=== PATIENT | male | born 1955 | race Caucasian/White ===

== ENCOUNTER 2024-09-06 16:31 | Inpatient (IN) | payer OTHER, SELFPAY ==
[2024-09-06 11:55] VITALS: BP 158/82
[2024-09-06 12:11] LABS: Urine Albumin 4+ (Neg - Trace); Urine Bilirubin 1+ (Negative); Urine Character Slightly Cloudy (Clear); Urine Glucose 4+ (Negative); Urine Ketone Negative (Negative); Urine Leukocyte 3+ (Negative); Urine Nitrite Positive (Negative); Urine Occult Blood 3+ (Negative); Urine Urobilinogen 1+ (Neg - 1+)
[2024-09-06 12:12] LABS: Urine Color Orange
[2024-09-06 12:38] LABS: Urine White Cell >100 /HPF (0-5)
[2024-09-06 12:44] VITALS: BMI 40.5
[2024-09-06 12:45] VITALS: BP 139/76
[2024-09-06 13:01] VITALS: BP 133/63
--- NOTE | 2024-09-06 13:20 | ED.GENMED ---
History of Present Illness
General
Chief Complaint: Male Genito-Urinary Symptoms
Source: patient
Time Seen by Provider: 09/06/24 12:45
History of Present Illness
History of Present Illness:
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
urgency and frequency despite being started on antibiotics on August 20 by urologist, Dr. Arreguin. Patient was given a 10-day course of levofloxacin which she reports he finished without any relief and then 3 days ago was started on Bactrim DS but
states has not had any relief with this. Patient notes that he otherwise feels okay other than noting some mucousy stools but states no watery stool/diarrhea. Patient denies any fevers, back or flank pain, nausea, vomiting. He reports that he did
a postvoid residual bladder scan at the urology office this past Saturday which showed only 50 mL retained. No other concerns presently.
Past History
Past History
ED Past Medical History: HTN, Hypercholesterolemia, NIDDM and Other (Hemochromatosis, kidney stones, bladder stones gout, stage II kidney disease)
ED Past Surgical History: Urological and Other (Right chest wall port)
Social History
Tobacco: Non-smoker
Alcohol: None
Drug: None
Personal:
Living: with family
Employment: Employed
Family History
Family History: Other
Review of Systems
Review of Systems
All Other Systems: ROS reviewed and negative except as documented in HPI and ROS
Phy Exam
Physical Exam
Physical Exam:
GENERAL: Alert , in no apparent distress
EYE: clear conjunctiva b/l
HEAD: NCAT
ENT: mmm.
CARDIAC: Regular rate and rhythm .
LUNGS: Clear breath sounds bilaterally, no acute respiratory distress, no wheezes/rales/rhonchi
ABDOMEN: Soft, without focal tenderness, no r/g, no cvat
NEUROLOGICAL: Alert and oriented
SKIN: Warm and dry, skin intact.
MUSCULOSKELETAL: No edema, well perfused.
PSYCH: Normal and appropriate interaction.
Scores
Heart Failure Risk
Heart Failure Risk Score: Not Applicable
Heart Score for Chest Pain Patients
STEMI patient?: Not applicable
Withdrawal Assessment of Alcohol
Withdrawal Assessment Completed?: Not applicable
Course
Orders/Labs/Results
Orders:
Orders
09/06/24 11:54
Urinalysis Reflex To Culture Urgent
Date Specimen was Collected: 09/06/24
Time Specimen was Collected: 11:54
Urine Microscopic Reflex Cult Urgent
Urine Culture Urgent
ARELY Source: U
Specimen Description:
Date Specimen was Collected: 09/06/24
Time Specimen was Collected: 11:54
09/06/24 13:03
Iohexol [Omnipaque] See Protocol PO NOW STA
09/06/24 13:04
CT Abd/pel W Iv And Oral Contr Urgent
Comment:
Reason For Exam: recurring UTI, hx vesicointestinal fistula
09/06/24 13:35
Piperacillin/Tazo 3.375 Gram [Zosyn] 3.375 gram in 50 ml IV NOW
09/06/24 13:41
Basic Metabolic Panel Urgent
Complete Blood Count/With Diff Urgent
09/06/24 Dinner
Cholesterol Lowering
At Your Request: Full Participation
Does patient need a safe tray?: No
Cholesterol Lowering: Sodium, 2 Gram
1800 junior/15 CHO Diabetic
09/06/24 15:52
Admit/Transfer Patient As Directed
Co-Sign Provider:
Level of Care: Inpatient admission
Assign to:: Medical/Surgical
Physician / Group: Lupe Wayne
Diagnosis: UTI, ANNIE
Reason for Hospitalization: UTI, ANNIE
Expected length of stay greater than two midnights?: Yes
ELOS- Estimated Length of Stay in days: 3
I certify the patient meets the requirements for IP care: Yes
PRN Pain Medication Management As Directed
May give lesser potent ordered pain med per pt: Yes
preference::
Protocol:: Medication orders for pain may be administered in a
manner that supports deferring to patient preference
when the pt is:
- Requesting an ordered lesser potent pain medication.
Least to most potent pain medications are defined
as: acetaminophen < NSAID < tramadol < opioids
(morphine, oxycodone, hydromorphone).
- Requesting a lesser dose of the same medication IF
ORDERED.
- Requesting a less intrusive route of administration
if both routes are prescribed by the provider (PO <
IV).
09/06/24 15:53
Code Status As Directed
Resuscitation Status: Full Code
09/06/24 17:35
0.9% Sodium Chloride 1000 ml [Nss] 1,000 ml IV 100 mls/hr
Acetaminophen [Tylenol] 650 mg PO Q4HPRN PRN
Dextrose 50%-Water [Dextrose 50% Syringe] 12.5 grams IV [id number] PRN
Glucagon [GlucaGen] 1 mg IM PRN PRN
09/06/24 17:35
Activity As Directed
Activity Level: Ambulate
Bedside Glucose Monitoring As Directed
Frequency: AC&HS
Additional Instructions:: Change to q6h if pt on TPN, tube feeding or not eating
Vital Signs As Directed
Frequency: Per unit guidelines
Weight As Directed
Frequency: Once
DX Deep Vein Thrombosis Video Routine
09/06/24 19:00
Insulin Aspart Corrective Low [Novolog Flexpen-Low Resistance] See Protocol SC AC
09/06/24 20:00
Piperacillin/Tazo 3.375 Gram [Zosyn] 3.375 gram in 50 ml IV Q6H
09/07/24 00:00
Heparin 5,000 units SC Q8
09/07/24 05:25
Basic Metabolic Panel IN AM
Complete Blood Count/No Diff IN AM
Glycohemoglobin (HgbA1c) IN AM
09/07/24 08:00
Allopurinol [Zyloprim] 300 mg PO DAILY
Amlodipine [Norvasc] 10 mg PO DAILY
Finasteride [Proscar] 5 mg PO DAILY
Nebivolol HCl [Bystolic] 10 mg PO DAILY
Rosuvastatin Calcium [Crestor] 20 mg PO DAILY
vibegron [Gemtesa] See Dose Instructions PO DAILY
Abnormal Lab Results
09/06/24 09/06/24
11:54 13:41
RBC 4.18 L 10^6/uL
(4.70-6.10)
MCH 31.1 H pg
(27.0-31.0)
Plt Count 117 L 10^3/uL
(130-400)
MPV 13.5 H fL
(7.4-10.4)
Abs Immat Gran (auto) 0.1 H 10^3/uL
(0-0.05)
Absolute Neuts (auto) 7.2 H 10^3/uL
(1.4-6.5)
Immature Gran % 0.7 H %
(0-0.5)
Neutrophils % 77.9 H %
(42.2-75.2)
Lymphocytes % 13.3 L %
(20.5-51.1)
Sodium 132 L mmol/L
(135-145)
Carbon Dioxide 19 L mmol/L
(22-30)
BUN 39 H mg/dl
(9-20)
Creatinine 1.6 H mg/dL
(0.7-1.3)
Glucose 389 H mg/dl
(70-99)
Ur Occult Blood Reflex 3+ A
(Negative)
Urine Nitrite (Reflex) Positive A
(Negative)
Urine Bilirubin 1+ A
(Negative)
Leukocyte Esterase Rfl 3+ A
(Negative)
Urine WBC (Reflex) >100 A /HPF
(0-5)
Urine Glucose 4+ A
(Negative)
Urine Albumin (Reflex) 4+ A
(Neg - Trace)
09/06/24 13:41
09/06/24 13:41
Vital Signs
Initial and Last Documented VS:
Initial Vital Signs
Temp Pulse Resp BP Pulse Ox
97.7 F 77 16 158/82 98
09/06/24 11:55 09/06/24 11:55 09/06/24 11:55 09/06/24 11:55 09/06/24 11:55
Last Documented Vital Signs
Temp Pulse Resp BP Pulse Ox
97.7 F 77 20 148/80 96
09/08/24 23:06 09/08/24 23:06 09/08/24 23:06 09/08/24 23:06 09/08/24 23:06
MDM/Problems Addressed
Differential Diagnosis Includes:
Multidrug-resistant urinary tract infection, recurring vesicular intestinal fistula, patient without any findings to suggest sepsis/bacteremia, BPH, prostatitis
MDM/Problems Addressed:
69-year-old male presenting to the emergency department for evaluation of continued urinary symptoms despite 2 separate antibiotics. Patient with history of fistula requiring surgical repair and has been otherwise well since that time. Patient
arrives afebrile and in no acute distress. Urinalysis obtained on arrival which shows nitrite positive urine with greater than 100 WBCs and 3+ leukocytes. Patient had previous urine culture in 2019 which showed ESBL E. coli and Klebsiella
pneumonia which showed significant multidrug resistance. Will discuss case with infectious disease to help with antibiotic planning. CT of the abdomen and pelvis ordered due to concern for potential recurring fistula. Anticipate admission given
failed outpatient treatment.
Chronic conditions affecting care: Other (previous UTI)
*Radiology
Radiology exam reviewed: radiology read reviewed
*Pulse Oximetry
Patient hypoxic: no
*Critical Care Note
Total Time (30-74mins, 75-104mins- exclusive of procedures): Not Applicable
Data Reviewed
Review of Other/Old Records Reveals: Labs and Records
Patient Management
Discussion with other providers: Hospitalist and Bill Recapitulation Clerk
Escalation/DeEscalation of care consider admission/obs:
CT findings noted. Will likely need urology input as well. Hospitalist team accepts for continued evaluation and treatment. General surgery was also notified and can consult as needed
ED Attending Note
-
Portions of this chart may have been created with voice recognition software.� Occasional wrong word or��sound alike� substitutions may have occurred due to the inherent limitations of voice recognition software.
Discharge Plan
Departure
Patient Disposition: Admit
Date of Disposition: 09/06/24
Time of Disposition: 14:54
Presentation/result/management discussed w/ accepting MD/DO: Hospitalist
Discharge Problem:
Complicated urinary tract infection, ANNIE (acute kidney injury)
Interventions
Interventions:
*General Assessment Last Done: 09/06/24 17:44
*Neglect/Abuse Screening Last Done: 09/06/24 11:55
ED- Fall Risk Assessment Last Done: 09/06/24 12:51
*Nursing Disposition Last Done: 09/06/24 17:44
ED-Male Genitourinary Assessment Last Done: 09/06/24 13:54
Discharge Date and Time
Discharge Date/Time: 09/06/24 17:44
[2024-09-06] MEDS: OMNIPAQUE 50 ML PO (13:42)
[2024-09-06] MEDS: ZOSYN 50 IV ×2 (13:45→19:55)
[2024-09-06 13:55] LABS: % Basophils 0.3 % (0-2); % Eosinophils 0.9 % (0-6); % Immature Granulocytes 0.7 % (0-0.5); % Lymphocytes 13.3 % (20.5-51.1); % Monocytes 6.9 % (1.7-9.3); % Neutrophils 77.9 % (42.2-75.2); Absolute Eosinophils 0.1 10^3/uL (0-0.7); Absolute Immature Granulocytes 0.1 10^3/uL (0-0.05); Absolute Lymphocytes 1.2 10^3/uL (1.2-3.4); Absolute Monocytes 0.6 10^3/uL (0.1-0.6); Absolute Neutrophils 7.2 10^3/uL (1.4-6.5); Hematocrit 39.1 % (39.0-52.0); Mean Corp Hgb Conc. 33.2 g/dL (33.0-37.0); Mean Corpuscular Hgb 31.1 pg (27.0-31.0); Mean Corpuscular Volume 93.5 fL (80.0-94.0); Mean Platelet Volume 13.5 fL (7.4-10.4); Nucleated Red Blood Cells % 0 % (-); Platelet Count 117 10^3/uL (130-400); Red Blood Cell Count 4.18 10^6/uL (4.70-6.10); Red Cell Dist. Width 13.5 % (11.5-14.5); White Blood Cell Count 9.2 10^3/uL (4.8-10.8)
[2024-09-06 14:00] VITALS: BP 137/63
[2024-09-06 14:04] LABS: Blood Urea Nitrogen 39 mg/dl (9-20); Calcium 8.8 mg/dl (8.4-10.2); Carbon Dioxide 19 mmol/L (22-30); Chloride 104 mmol/L (98-107); Estimated Creatinine Clearance 56 ml/min; Glucose 389 mg/dl (70-99); Potassium 4.8 mmol/L (3.5-5.1); Sodium 132 mmol/L (135-145); eGFR 46.06
--- NOTE | 2024-09-06 15:02 | HPS.HSE ---
Family Physician
-
Family Physician: Vincent Vela
Chief Complaint
-
persistent urinary urgency and frequency
History of Present Illness
Patient is a 69-year-old male with past medical history significant for benign hypertension, hyperlipidemia, CKD II and gout who presented to [facility] ED for evaluation of persistent urinary urgency and frequency. Patient reports he has
started with burning with urination as well. He stated symptoms started at the beginning of the month and he went to see urologist, Dr. Arreguin. Urology took urine sample and was mishandled by [facility] but they had started a 10-course of Levaquin. The
Levaquin course was finished and patient continued with symptoms and a second UA was obtained and script for Bactrim DS was given. Patient started Bactrim yesterday with no chnage in symptoms. He reports second UA resulted as not concerning for UTI.
With continued symptoms patient came for evaluation. Patient denies any fever, chills, cough, shortness of breath, nausea, vomiting, constipation or diarrhea.
Medical History
Past Medical History
Past Medical History: Reports Other
Additional Past Medical History:
benign hypertension
hyperlipidemia
CKD II
gout
BPH
hx bladder stones x2
hx staghorn caliculit (uric acid - dissolved with med >20 yrs ago)
Past Surgical History: Reports Other
Additional Past Surgical History:
cystoscopy (stone retrieval and U stent)
laparoscopic sigmoidectomy/takedown colovesical fistula (11/16/2022)
Right shoulder repair
Social History
Tobacco: Non-smoker
Alcohol: Occasional
Drug: Marijuana (medical grade edibles occasionally for insomnia )
Personal:
Living: With Family
Family History
Family History: Not pertinent
Allergies / Home Medications
Allergies reflects when Allergies were last updated in [employer].
Home Medications with original date entered in [facility]
Allergy/Medication List:
Allergies
Allergy/AdvReac Type Severity Reaction Status Date / Time
GERARDO Inhibitors Allergy 'SHUT MY Verified 09/06/24 11:55
KIDNEYS
DOWN'
Home Medications
allopurinol 300 mg tablet 300 mg PO DAILY Gout 04/12/20
amlodipine 10 mg tablet 10 mg PO DAILY Blood pressure 04/13/20
acetaminophen 325 mg tablet 650 mg (2 x 325 mg) PO Q4HPRN PRN mild pain/SANDOVAL/temp> 100.4F 04/16/20
finasteride 5 mg tablet 5 mg PO DAILY #30 tabs 08/10/22
nebivolol 10 mg tablet 10 mg PO DAILY Blood pressure 11/09/22
rosuvastatin 20 mg tablet 20 mg PO DAILY 09/06/24
sulfamethoxazole 800 mg-trimethoprim 160 mg tablet (Bactrim DS) 1 tab PO BID 09/06/24
vibegron 75 mg tablet (Gemtesa) 75 mg PO DAILY 09/06/24
Review of Systems
-
History Source: Patient
Constitutional: Reports No Symptoms
EENT: Reports No Symptoms
Respiratory: Reports No Symptoms
Cardiac: Reports No Symptoms
Abdomen/GI: Reports No Symptoms
: Reports Dysuria, Frequency and Urgency
Musculoskeletal: Reports No Symptoms
Skin: Reports No Symptoms
Neurological: Reports No Symptoms
Endocrine: Reports No Symptoms
Hematologic/Lymphatic: Reports No Symptoms
Psych: Reports No Symptoms
Physical Exam
Vital Signs
Vital Signs
Temp Pulse Resp BP Pulse Ox
97.7 F 65 16 137/63 95
09/06/24 11:55 09/06/24 14:00 09/06/24 14:00 09/06/24 14:00 09/06/24 13:47
Physical Exam
General: Well Developed, Well Nourished, No Apparent Distress, Comfortable and Conversant
HEENT: NormoCephalic, Moist mucous membranes, Atraumatic, [place] Conjunctivae, Nose Appears Normal and Ears Appear Normal
Respiratory: Clear and Non Labored Respirations
Cardiac: S1/S2 and Regular Rhythm; No Murmur, Rub or Gallop
Breast: Deferred by me
GI: Soft, Non Tender, Non Distended and Normal Bowel Sounds; No Organomegaly
Rectal: Deferred by Provider
Genito-urinary: Other (orange cloudy urine )
Musculoskeletal: No Clubbing, No Cyanosis and No Edema
Skin: Warm and IV/Catheter Site; No Rash
Neuro: Awake, Alert, AO x 3 and Nonfocal/grossly intact
Psych: Calm and Intact Judgment/Insight
Laboratory Results
-
09/06/24 13:41
09/06/24 13:41
Data Reviewed
-
Lab Data: Labs Reviewed by me (BUN 39, Creat 1.6, glucose 389, UA indicative of UTI)
Impression/Plan
-
IMPRESSION/PLAN:
#UTI failed out patient treatment
patient urologist, Dr. Arreguin, prescribed 10-day Levaquin course 08/20/2024 and then 3-days ago started on Bactrim DS patient has no relief in symptoms
Hx colovesical fistula
UA: indicative of UTI
Urine Cx: pending
Abd/Pelvis CT: pending
- Admit to med/tele
- IV Zosyn
- supportive care
- consider surgical consult pending CT results
#acute kidney injury
#CKD II
BUN 39, Creat 1.6
- IVF
- monitor BMP
#NIDDM
patient reports this is error and had a high sugar 1x on labs when not fasting
Glucose today 389
- start SSI
- AccuCheck AC & HS
- check A1C
#benign hypertension
- continue amlodipine and nebivolol
#hyperlipidemia
- continue rosuvastatin
#gout
- continue allopurinol
#BPH
- continue finasteride and vibegron
#hx bladder stones x2
#hx staghorn caliculit (uric acid - dissolved with med >20 yrs ago)
Code status: Full code
DVT prophylaxis: Heparin sq
--- NOTE | 2024-09-06 15:46 | W.PN.UPDATE ---
Addendum entered and electronically signed by Lupe Wayne MD 09/06/24 15:50:
Blood sugar 389. Patient denies diabetes. Start ISS. Check A1c.
Original Note:
Update Note
Progress Note Update
This is an addendum to the H&P written by Bella Coughlin on 09/06/2024. Patient seen and examined independently with SENIOR UNDERWRITER.
69-year-old male past medical history of colovesicular fistula status post laparoscopic sigmoidectomy with takedown of colovesicular fistula, recurrent recurrent UTIs with ESBL E. coli in 2019, hypertension, BPH, corneal abrasion, bladder stone,
gout, hyperlipidemia, CKD 2, presenting for urinary urgency and frequency and burning despite being started on Levaquin on August [address] Arreguin and then Bactrim since yesterday.. No fever or vomiting or diarrhea. Also with some loose
stools, when he tries to urinate.
Labs show creatinine of 1.6.
Prior urine culture showed ESBL E. coli, Klebsiella sensitive to Zosyn.
Given history of ESBL E. coli, ER spoke with ID who recommended Zosyn. IV fluids. CT abdomen pelvis to evaluate for complicated abdominal anatomy given history of colovesicular fistula and persistent UTI.
ANNIE may be due to Bactrim. IV fluids.
[2024-09-06 17:38] VITALS: BP 149/67
--- NOTE | 2024-09-06 18:07 | PTCARENOTE ---
recieved pt from ED via stretcher, able to ambulate to his bed, using the bathroom very frequently with urination, pain his buttocks and tip of penis due to burning, ordered dinner, at bedside, VSS and charted.
[2024-09-06 18:27] LABS: Glucose - Point of Care 238 mg/dl (70-99)
[2024-09-06] MEDS: NOVOLOG FLEXPEN-LOW RESISTANCE 2 UNITS SC (18:31)
[2024-09-06] MEDS: NSS 1000 IV (19:55)
[2024-09-06 22:11] LABS: Glucose - Point of Care 252 mg/dl (70-99)
[2024-09-06 23:17] VITALS: BP 135/75
[2024-09-07] MEDS: HEPARIN 5000 UNITS SC ×4 (01:00→22:50)
[2024-09-07] MEDS: ZOSYN 50 IV ×4 (01:03→20:20)
[2024-09-07 06:24] LABS: Blood Urea Nitrogen 29 mg/dl (9-20); Calcium 8.8 mg/dl (8.4-10.2); Carbon Dioxide 19 mmol/L (22-30); Chloride 106 mmol/L (98-107); Estimated Creatinine Clearance 56 ml/min; Glucose 284 mg/dl (70-99); Hematocrit 38.5 % (39.0-52.0); Hemoglobin 12.9 g/dL (13.0-18.0); Mean Corp Hgb Conc. 33.5 g/dL (33.0-37.0); Mean Corpuscular Hgb 30.4 pg (27.0-31.0); Mean Corpuscular Volume 90.6 fL (80.0-94.0); Mean Platelet Volume 13.1 fL (7.4-10.4); Platelet Count 117 10^3/uL (130-400); Potassium 4.7 mmol/L (3.5-5.1); Red Blood Cell Count 4.25 10^6/uL (4.70-6.10); Red Cell Dist. Width 13.6 % (11.5-14.5); Sodium 134 mmol/L (135-145); White Blood Cell Count 9.7 10^3/uL (4.8-10.8); eGFR 46.06
[2024-09-07 08:00] VITALS: BP 158/83
[2024-09-07 08:15] LABS: Glucose - Point of Care 297 mg/dl (70-99)
[2024-09-07] MEDS: NSS 1000 IV ×2 (08:28→20:20)
[2024-09-07] MEDS: ZYLOPRIM 300 MG PO (08:29)
[2024-09-07] MEDS: NORVASC 10 MG PO (08:29)
[2024-09-07] MEDS: BYSTOLIC 10 MG PO (08:29)
[2024-09-07] MEDS: CRESTOR 20 MG PO (08:29)
[2024-09-07] MEDS: PROSCAR 5 MG PO (08:29)
[2024-09-07] MEDS: NOVOLOG FLEXPEN-LOW RESISTANCE 3 UNITS SC ×2 (08:29→18:19)
--- NOTE | 2024-09-07 08:43 | PTCARENOTE ---
Addendum entered by Maria D Wray RN 09/07/24 15:25:
prn morphine ordered by MD and prn pyridium ordered by urology. pt educated on both. agricultural extension educator saw patient at bedside and wound care saw pt as well. zinc oxide ordered for buttocks
Original Note:
pt from home states that overnight had to go to the bathroom about 25 times. not every time was successful with urination. assistant shift supervisor RN bladderscanned for greater than 300ml. pt states sharp shooting pain in penis and nahomi area intermittently.
states issue with retention is newer to him. no tenderness in any abdominal quadrants and has positive bowel sounds. pt with R SQ port, NSS and scheduled zosyn are going through this site. urine cultures pending.
[2024-09-07 09:02] LABS: Glycohemoglobin (HgbA1c) 10.8 % (4.0-5.6)
--- NOTE | 2024-09-07 11:24 | WOUNDNOTE ---
MAXIMINO RN NOTE: Confirmed with nurse Maria D buttocks with mild MASD and can cancel consult.
[2024-09-07 12:01] LABS: Glucose - Point of Care 317 mg/dl (70-99)
[2024-09-07] MEDS: NOVOLOG FLEXPEN-LOW RESISTANCE 4 UNITS SC (12:06)
--- NOTE | 2024-09-07 13:16 | W.PN.HOSP.TC ---
Today's Communication/Plan
-
IV antibiotics. ID eval. Urology eval.
Assessment / Plan
Assessment / Plan
Physical exam:
General: Acutely ill but nontoxic and No Apparent Distress
HEENT: Normocephalic, Atraumatic and Moist Mucous Membranes
Respiratory: Clear to Auscultation; Negative Wheezes, Rales or Rhonchi
Cardiac: Regular Rhythm and S1/S2
GI: Soft, mild tender and Nondistended
Musculoskeletal: No Clubbing, No Cyanosis and presence of bilateral edema
Neuro: Awake, Alert and Oriented, no gross neurological deficits but generalized weakness
Psych: Anxious
A/P:
Recurrent UTI:
On IV Zosyn
History ESBL in the past
ID eval
PT OT
Bilateral hydronephrosis with some urinary retention but has not required catheterization:
Seen CT scan of the abdomen and pelvis
Check bladder scan more often
Urology consult-discussed with urology today
History of colovesicular fistula in the past
Follow-up with Dr. Arreguin as outpatient
BPH:
Continue finasteride
ANNIE on CKD:
Creatinine 1.6
Last creatinine back in November 2022 1.2
Avoid nephrotoxic
Monitor renal function
Hyponatremia:
Continue to monitor
Hypertension:
Continue home antihypertensives
Hyperlipidemia:
Continue statin
Diabetes mellitus type 2, new onset:
Insulin sliding scale
Hemoglobin A1c 10.8
Diabetic education consult
Gout:
Continue allopurinol
DVT prophylaxis:
Heparin SQ
CODE STATUS:
Full code
Total time spent on today's encounter was 52 minutes which included time spent in counseling the patient/family regarding diagnosis and treatment plan as listed above, goals of care, and symptom management. Case was discussed with nursing staff,
specialists, and care coordinators/case management. All labs and imaging personally reviewed by me. Remainder the time spent in detailed review of previous records, lab data, imaging, and other medical provider documentation.
Anticipated Discharge: > 48 hours
Subjective/Interval History
-
Date of Service: September 07, 2024
Patient complains of dysuria and also 'bladder pressure'. Afebrile.
Objective Data
-
Labs:
Laboratory Results
09/07/24
05:25
WBC 9.7
Hgb 12.9 L
Hct 38.5 L
Plt Count 117 L
Sodium 134 L
Potassium 4.7
Chloride 106
Carbon Dioxide 19 L
BUN 29 H
Creatinine 1.6 H
Glucose 284 H
Calcium 8.8
Vital Signs:
Vital Signs
Temp Pulse Resp BP Pulse Ox
99.7 F 82 18 158/83 93
09/07/24 08:00 09/07/24 08:00 09/07/24 08:00 09/07/24 08:29 09/07/24 09:47
I&O
09/06/24 09/07/24 09/08/24
06:59 06:59 06:59
Intake Total 1740 / 1740
Balance 1740 / 1740
[2024-09-07] MEDS: MORPHINE SULFATE 2 MG IV ×3 (14:24→22:49)
--- NOTE | 2024-09-07 14:50 | PN.DE.MGMTRT ---
Insulin Management
- -
09/07/2024: Diabetes Management Consult
69 year old male with PMH: Benign HTN, HLD, CKD II, Gout and T2DM, initially first dx in 2019 with an A1C of 9% and started on Jardiance and Metformin at the time. Patient presented to the ED with c/o persistent urinary urgency and frequency due to
UTI and Bilateral hydronephrosis.
Pt is awake, alert, oriented, in NAD, sitting up in bed, able to discuss diabetes management. at bedside, all questions answered.
Pt reports that he stopped taking his diabetes medication 3 years ago when his A1C improved to 6% and had been exercising and watching his diet which resulted into significant weight loss. He states he had a glucose monitor but does not know where
it is.
Reports he recently has not been compliant with a diabetic diet, has not been exercising and has gained a lot of weight. A1C of 10.8%, Cr 1.6, eGFR 46.06.
Discussed insulin therapy with basal/bolus regimen, however, pt declined stating that he would like to try the regimen that included metformin and Jardiance as he had taken on initial dx 5 years ago. Discussed current A1C and Emphasized importance
of optimal glucose control to reduce risk of diabetes related complications. Pt was agreeable to a combination of basal insulin and oral medications.
Will give NPH 15 units NOW and start HS Lantus 20 units. Start Metformin 1000mg BID, Farxiga 10mg daily(will switch to Jardiance at d/c) and Glipizide 5mg BID, all to be started this afternoon.
Discussed with Nurse.
Pt will be seen by the Diabetes RN Educator for monitor and insulin instructions.
Diabetes History
- -
Type of Diabetes: 2 requiring insulin
Pre-Admission Diabetes Regimen
09/07/24
05:25
Creatinine 1.6 H
Lab Results
Hemoglobin A1c 10.8 % (4.0-5.6) H 09/07/24 05:25
Insulin Pump Settings
IP Diabetes Regimen
0209/06/24 09/07/24
18:25 22:07 05:25
Glucose 284 H
POC Glucose 238 H 252 H
09/07/24 09/07/24
08:14 12:00
Glucose
POC Glucose 297 H 317 H
Meal type: Dinner
Amount consumed: 100%
Patient Education
--- NOTE | 2024-09-07 14:56 | CON.ID ---
Consultation
-
Date/Time Consultation Requested: 09/07/24 9:45
Date/Time Consultation Performed: 09/07/24 14:57
Requesting Provider: Dr Adams
Performing Provider: Dr Merlos
Reason for Consultation: recurrent uti, esbl+ in the past
Chief Complaint / Past History
Chief Complaint
persistent urinary urgency and frequency
History of Present Illness
Mr Oscar is a 69 year old male with history of colovesicular fistula s/p repair, BPH, resolved staghorn calculus who presented here 09/06 for dysuira, urgency, frequency which he reports began at the beginning of the month. He started a 10 day
course of empiric levaquin. Patient had relapse of symptoms and was started on oral bactrim however no improvement on his symptoms and presented here. Patient denies any fever, chills, cough, shortness of breath, nausea, vomiting, constipation or
diarrhea. Reports no further pneumaturia or fecaluria since fistula repair in 2022.
Since arrival here he has been afebrile, bp stable, wbc initially 9.2 now 9.7, hgb 12.9, plt 117, L shift is noted, cr baseline 1.2 now 1.6, na 134, a1c 10.8, UA >100 wbc/hpf, 09/06 CT a/p with IV and oral contrast: severe acute cystitis, bilateral
hydroureteronephrosis, Severe chronic left renal cortical volume loss (either secondary to chronic ischemia or pyelonephritis), cirrhosis, 09/06 urine culture finalized negative, note remote history of ESBL E coli UTI 2020 - 5 years ago.
Past History
Additional Past Medical History:
hypertension
hyperlipidemia
CKD II
gout
BPH
hx bladder stones x2
hx staghorn caliculit (uric acid - dissolved with med >20 yrs ago)
Additional Past Surgical History:
cystoscopy (stone retrieval and U stent)
laparoscopic sigmoidectomy/takedown colovesical fistula (11/16/2022)
Right shoulder repair
Allergy History:
GERARDO Inhibitors Allergy (Verified 09/06/24 11:55)
'SHUT MY KIDNEYS DOWN'
Medications Reviewed: Yes
Social History
Tobacco: Non-Smoker
Alcohol: Occasional
Drug: Marijuana (for insomnia)
Family History
Family History: Not Pertinent
Review of Systems
Review of Systems
General: Negative Fever or Chills
All systems: All other systems were reviewed and were negative
Vital Signs
Temp Pulse Resp BP Pulse Ox
99.7 F 82 18 158/83 93
09/07/24 08:00 09/07/24 08:00 09/07/24 08:00 09/07/24 08:29 09/07/24 09:47
Physical Exam
Physical Exam
Constitutional: No Acute Distress
Cardiovascular: Regular Rate and S1/S2; Negative Murmur or Rub
Pulmonary: Clear and Symmetric; Negative Wheezes, Rales or Rhonchi
Gastrointestinal: Soft, Non Tender, Non Distended and Normal Bowel Sounds
Genito-Urinary: Negative Suprapubic Tenderness or CVA Tenderness
Skin: Warm and Dry; Negative Rash or Jaundice
Lines: Port (accessed, functional)
Lab / Diagnostic Study Results
09/07/24 05:25
09/07/24 05:25
Abs Immat Gran (auto) 0.1 10^3/uL (0-0.05) H 09/06/24 13:41
Absolute Neuts (auto) 7.2 10^3/uL (1.4-6.5) H 09/06/24 13:41
Absolute Lymphs (auto) 1.2 10^3/uL (1.2-3.4) 09/06/24 13:41
Absolute Monos (auto) 0.6 10^3/uL (0.1-0.6) 09/06/24 13:41
Absolute Basos (auto) 0.0 10^3/uL (0-0.2) 09/06/24 13:41
Immature Gran % 0.7 % (0-0.5) H 09/06/24 13:41
Neutrophils % 77.9 % (42.2-75.2) H 09/06/24 13:41
Lymphocytes % 13.3 % (20.5-51.1) L 09/06/24 13:41
Monocytes % 6.9 % (1.7-9.3) 09/06/24 13:41
Eosinophils % 0.9 % (0-6) 09/06/24 13:41
Basophils % 0.3 % (0-2) 09/06/24 13:41
Ur Squamous Epith Cells /LPF (Few) 09/06/24 11:54
Microbiology Results
Micro:
09/06/24 11:54 Urine Culture - Final
Urine NO GROWTH
Assessment / Plan
UTI vs Urethritis
DM2 uncontrolled a1c 10.8
Hemochromatosis
- urine culture here finalized negative - suggests either partial treatment or perhaps urethritis; patient and both adamant that no new sexual partners
- will check for m genitalium and u ureolyticum - send out PCR
- scheduled pyridium, also has PRN morphine
- I reviewed available outpatinet culture resutls in ecw as well
- continue zosyn at this time
- follow clinically
--- NOTE | 2024-09-07 15:34 | WOUNDNOTE ---
GLUTEAL CLEFT/ BUTTOCKS
--- NOTE | 2024-09-07 15:35 | WOUNDNOTE ---
WON RN NOTE ADDENDUM: Asked by nurse Maria D to come back and see patient for severe MASD in buttocks. Patient having bouts of loose stool and urgency to void, frequently cleaning area rubbing it raw. Patient reports it is very painful. Recommend
Sits bath bid and prn with Desitin zinc oxide 40% bid and prn . Called [facility] for sits bath, teaching done with patient and at bedside. Had patient remove his underwear to let breathe and instructed in the future to use 100% cotton underwear. Will
confirm orders with hospitalist and updated nurse. Care plan and discharge instructions updated. Will follow as needed.
[2024-09-07 16:24] VITALS: BP 149/73
[2024-09-07] MEDS: NOVOLIN N vial 0.15 UNITS SC (16:45)
[2024-09-07] MEDS: GLUCOPHAGE 1000 MG PO (16:46)
[2024-09-07] MEDS: FARXIGA 10 MG PO (16:46)
[2024-09-07] MEDS: Pyridium 200 MG PO ×2 (16:46→21:29)
[2024-09-07] MEDS: GLUCOTROL 5 MG PO (16:46)
[2024-09-07 16:48] LABS: Glucose - Point of Care 290 mg/dl (70-99)
--- NOTE | 2024-09-07 19:11 | CONS.URO ---
Consultation
-
Performing Provider: Peffer
Reason for Consultation: ascending UTI
Medical History
History of Present Illness
69M with past hx of kidney and bladder stones
BPH on finasteride and gemtesa
Atrophic L kidney
Prior colovesical fistula s/p repair in 2022
Presented to ED for evaluation of persistent urinary urgency, frequency, and dysuria. He stated symptoms started at the beginning of the month and he went to see Dr. Arreguin. Urology took urine sample and was mishandled by [facility]/inconclusive but
they had started a 10-course of Levaquin. The Levaquin course was finished and patient continued with symptoms and a second UA was obtained 08/29 and script for Bactrim DS was given. Patient started Bactrim yesterday with no chnage in symptoms. He
reports second urine culture resulted as not concerning for UTI. With continued symptoms patient came for evaluation. Patient denies any fever, chills, cough, shortness of breath, nausea, vomiting, constipation or diarrhea. He denies flank pain or
gross hematuria
CT scan showed diffuse cystitis as well as mild bilateral collecting system fullness c/e ascending UTI/early pyelonephritis
He was admitted and started on broad spex abx
PVR bladder scans were around 300 range over past 24 hours
PVR improved this afternoon to 30cc
Dysuria improving
No fevers
Past Medical History
Past Medical History: Other (benign hypertension, hyperlipidemia, CKD II and gout, colovesical fistula)
Social History
Alcohol: None
Drug: None
Living: With Family
Family History
Family History: Reviewed & Not Pertinent
Allergies/Home Medications
Allergies
Allergy/AdvReac Type Severity Reaction Status Date / Time
GERARDO Inhibitors Allergy 'SHUT MY Verified 09/06/24 11:55
KIDNEYS
DOWN'
Home Medications
�Medication �Instructions �Recorded �Confirmed �Type
allopurinol 300 mg tablet 300 mg PO DAILY Gout 04/12/20 09/06/24 History
amlodipine 10 mg tablet 10 mg PO DAILY Blood pressure 04/13/20 09/06/24 History
acetaminophen 325 mg tablet 650 mg (2 x 325 mg) PO Q4HPRN PRN 04/16/20 09/06/24 Rx
mild pain/SANDOVAL/temp> 100.4F
finasteride 5 mg tablet 5 mg PO DAILY #30 tabs 08/10/22 09/06/24 Rx
nebivolol 10 mg tablet 10 mg PO DAILY Blood pressure 11/09/22 09/06/24 History
rosuvastatin 20 mg tablet 20 mg PO DAILY 09/06/24 09/06/24 History
sulfamethoxazole 800 1 tab PO BID 09/06/24 09/06/24 History
mg-trimethoprim 160 mg tablet
(Bactrim DS)
vibegron 75 mg tablet (Gemtesa) 75 mg PO DAILY 09/06/24 09/06/24 History
Physical Exam
Vital Signs
Vital Signs
Temp Pulse Resp BP Pulse Ox
97.2 F 76 17 149/73 97
09/07/24 16:24 09/07/24 16:24 09/07/24 16:24 09/07/24 16:24 09/07/24 16:24
Lab / Testing Results
Laboratory Results
09/07/24 05:25
09/07/24 05:25
Physical Exam
General: Well Developed, Well Nourished and No Apparent Distress
GI: Soft and Non Tender
Genito-urinary: No Costovertebral Tend
Skin: Warm and Dry
Neuro: AO x 3
Psych: Calm and Intact Judgement
Assessment / Plan
-
69M with history of colovesical fistula, BPH recurrent UTI
Admitted with worsening irritative voiding symptoms
CT showing cystitis and possible early ascending UTI
- No significant hydronephrosis appreciated. No evidence of upper tract obstructive uropathy
- Suspect recurrent prostatitis. Continue zosyn with symptom improvement. Unfortunately last two urine cultures have been negative. Additional testing per ID pending. Consider extended outpatient PO abx course ~4 weeks
- Trend PVR - improved significantly 2/24 down to 30cc
- Continue finastertide and gemtesa
- Pyridium PRN dysuria
- Consider outpatient cystoscopy to rule out recurrent colovesical fistula, though none obvious on CT and patient without debris in urine
Data Reviewed
-
CT Scan: Image personally visualized and interpreted
Old Records: Reviewed
[2024-09-07 21:20] LABS: Glucose - Point of Care 166 mg/dl (70-99)
[2024-09-07] MEDS: LANTUS 0.2 UNITS SC (21:29)
[2024-09-07 23:40] VITALS: BP 135/66
[2024-09-08 00:05] VITALS: BP 135/66
[2024-09-08] MEDS: ZOSYN 50 IV ×4 (02:25→19:55)
--- NOTE | 2024-09-08 07:32 | PN.DE.MGMTRT ---
Insulin Management
- -
09/08/2024: Diabetes Management Consult Follow up
Patient admitted with c/o persistent urinary urgency and frequency due to UTI and Bilateral hydronephrosis with PMH: Benign HTN, HLD, CKD II, Gout and T2DM, initially first dx in 2019 with an A1C of 9% and started on Jardiance and Metformin at the
time.
Pt is awake, alert, oriented, in NAD, sitting up in bed, able to discuss diabetes management.
Pt reports that he stopped taking his diabetes medication 3 years ago when his A1C improved to 6% and had been exercising and watching his diet which resulted in significant weight loss. He states he had a glucose monitor but does not know where it
is.
Reports he recently has not been compliant with a diabetic diet, has not been exercising and has gained a lot of weight. A1C of 10.8%, Cr 1.6, eGFR 46.06.
Discussed insulin therapy with basal/bolus regimen, however, pt declined stating that he would like to try the regimen that included metformin and Jardiance as he had taken on initial dx 5 years ago. Discussed current A1C and Emphasized importance
of optimal glucose control to reduce risk of diabetes related complications. Pt was agreeable to a combination of basal insulin and oral medications.
Patient received HS lantus 20 units, fasting glucose this AM 213. Will continue Farxiga 10 mg daily, metformin 1000 mg BID and glipizide 5 mg BID and increase lantus 24 units @ hs.
Discussed with Nurse.
Pt will be seen by the Diabetes RN Educator for monitor and insulin instructions.
Diabetes History
- -
Type of Diabetes: 2
Pre-Admission Diabetes Regimen
Lab Results
Hemoglobin A1c 10.8 % (4.0-5.6) H 09/07/24 05:25
Insulin Pump Settings
IP Diabetes Regimen
09/07/24 09/07/24 09/07/24
08:14 12:00 16:47
POC Glucose 297 H 317 H 290 H
09/07/24
21:15
POC Glucose 166 H
Meal type: Lunch
Meal type: Breakfast
Amount consumed: 100%
Amount consumed: 100%
Patient Education
[2024-09-08] MEDS: GLUCOPHAGE 1000 MG PO ×2 (08:00→16:49)
[2024-09-08] MEDS: FARXIGA 10 MG PO (08:00)
[2024-09-08] MEDS: GLUCOTROL 5 MG PO ×2 (08:00→16:49)
[2024-09-08] MEDS: ZYLOPRIM 300 MG PO (08:00)
[2024-09-08] MEDS: CRESTOR 20 MG PO (08:01)
[2024-09-08] MEDS: Pyridium 200 MG PO ×3 (08:01→22:34)
[2024-09-08] MEDS: HEPARIN 5000 UNITS SC ×2 (08:01→23:13)
[2024-09-08] MEDS: NSS 1000 IV (08:01)
[2024-09-08] MEDS: PROSCAR 5 MG PO (08:01)
[2024-09-08] MEDS: BYSTOLIC 10 MG PO (08:07)
[2024-09-08 08:08] LABS: % Basophils 0.3 % (0-2); % Eosinophils 1.5 % (0-6); % Immature Granulocytes 0.4 % (0-0.5); % Lymphocytes 14.8 % (20.5-51.1); % Monocytes 7.8 % (1.7-9.3); % Neutrophils 75.2 % (42.2-75.2); Absolute Eosinophils 0.1 10^3/uL (0-0.7); Absolute Lymphocytes 1.4 10^3/uL (1.2-3.4); Absolute Monocytes 0.7 10^3/uL (0.1-0.6); Absolute Neutrophils 7.1 10^3/uL (1.4-6.5); Hemoglobin 13.9 g/dL (13.0-18.0); Mean Corp Hgb Conc. 32.3 g/dL (33.0-37.0); Mean Corpuscular Hgb 30.5 pg (27.0-31.0); Mean Corpuscular Volume 94.3 fL (80.0-94.0); Mean Platelet Volume 13.4 fL (7.4-10.4); Nucleated Red Blood Cells % 0 % (-); Platelet Count 122 10^3/uL (130-400); Red Blood Cell Count 4.56 10^6/uL (4.70-6.10); Red Cell Dist. Width 13.9 % (11.5-14.5); White Blood Cell Count 9.4 10^3/uL (4.8-10.8)
[2024-09-08 08:08] LABS: Glucose - Point of Care 213 mg/dl (70-99)
[2024-09-08] MEDS: NOVOLOG FLEXPEN-LOW RESISTANCE 2 UNITS SC (08:09)
[2024-09-08] MEDS: NORVASC 10 MG PO (08:10)
[2024-09-08 08:15] VITALS: BP 143/88
[2024-09-08 08:32] LABS: Blood Urea Nitrogen 25 mg/dl (9-20); Calcium 8.8 mg/dl (8.4-10.2); Carbon Dioxide 17 mmol/L (22-30); Chloride 106 mmol/L (98-107); Estimated Creatinine Clearance 56 ml/min; Glucose 200 mg/dl (70-99); Potassium 4.6 mmol/L (3.5-5.1); Sodium 136 mmol/L (135-145); eGFR 46.06
--- NOTE | 2024-09-08 08:44 | W.PN.HOSP.TC ---
Addendum entered and electronically signed by Tr Adams MD 09/08/24 15:18:
Obesity
Original Note:
Today's Communication/Plan
-
IV antibiotics.
Assessment / Plan
Assessment / Plan
Physical exam:
General: Acutely ill but nontoxic and No Apparent Distress
HEENT: Normocephalic, Atraumatic and Moist Mucous Membranes
Respiratory: Clear to Auscultation; Negative Wheezes, Rales or Rhonchi
Cardiac: Regular Rhythm and S1/S2
GI: Soft, mild tender and Nondistended
Musculoskeletal: No Clubbing, No Cyanosis and presence of bilateral edema
Neuro: Awake, Alert and Oriented, no gross neurological deficits but generalized weakness
Psych: Anxious
A/P:
Recurrent UTI:
On IV Zosyn
Current urine culture in-house is sterile
History ESBL in the past
ID consult appreciated
PT OT
BPH with incomplete bladder emptying:
Continue bladder scan
Urology consult appreciated
Continue finasteride
Started on Flomax
No significant hydronephrosis per Urology
ANNIE on CKD vs CKD:
Unclear baseline
There could be a component of postobstructive
Stop IV fluids today and monitor renal function
Creatinine 1.6
Last creatinine back in November 2022 1.2
Avoid nephrotoxic
Monitor renal function
Hyponatremia:
Continue to monitor
Hypertension:
Continue home antihypertensives
Hyperlipidemia:
Continue statin
Diabetes mellitus type 2, new onset:
Insulin sliding scale
Hemoglobin A1c 10.8
Diabetic education
On Lantus 24 units daily
Insulin sliding scale
On metformin, glipizide, and Farxiga
Gout:
Continue allopurinol
DVT prophylaxis:
Heparin SQ
CODE STATUS:
Full code
Total time spent on today's encounter was 52 minutes which included time spent in counseling the patient/family regarding diagnosis and treatment plan as listed above, goals of care, and symptom management. Case was discussed with nursing staff,
specialists, and care coordinators/case management. All labs and imaging personally reviewed by me. Remainder the time spent in detailed review of previous records, lab data, imaging, and other medical provider documentation.
Anticipated Discharge: 24 - 48 hours
Subjective/Interval History
-
Date of Service: September 08, 2024
Patient still complaining of dribbling of the urine and dysuria and some pelvic pressure. No nausea vomiting. Afebrile
Objective Data
-
Labs:
Laboratory Results
09/08/24
07:31
WBC 9.4
Hgb 13.9
Hct 43.0
Plt Count 122 L
Sodium 136
Potassium 4.6
Chloride 106
Carbon Dioxide 17 L
BUN 25 H
Creatinine 1.6 H
Glucose 200 H
Calcium 8.8
Vital Signs:
Vital Signs
Temp Pulse Resp BP Pulse Ox
97.2 F 78 18 143/88 99
09/08/24 08:15 09/08/24 08:15 09/08/24 08:15 09/08/24 08:15 09/08/24 08:15
I&O
09/07/24 09/08/24 09/09/24
06:59 06:59 06:59
Intake Total 1740 / 1740 2900 / 2900
Balance 1740 / 1740 2900 / 2900
--- NOTE | 2024-09-08 08:59 | W.PN.URO.CBU ---
Today's Communication / Plan
-
Continue ABX
Begin tamsulosin
Follow bladder scan
Assessment / Plan
-
Cystitis
Possible pyelonephritis
Incomplete bladder emptying
---
Urine culture negative
No fever
No leukocytosis
Diagnosis
-
Date of Service: September 08, 2024
-
Patient Diagnosis:
Cystitis
Possible pyelonephritis
Hx of colovesical fistula: no CT scan evidence of recurrence
Subjective
-
Decreased urine frequency
Dysuria persists
Objective
-
Vital Signs
Temp Pulse Resp BP Pulse Ox
97.2 F 78 18 143/88 99
09/08/24 08:15 09/08/24 08:15 09/08/24 08:15 09/08/24 08:15 09/08/24 08:15
Intake and Output
09/07/24 09/08/24 09/09/24
06:59 06:59 06:59
Intake Total 1740 / 1740 2900 / 2900
Balance 1740 / 1740 2900 / 2900
Intake:
Oral fluids 440 / 440 1800 / 1800
IV fluids (Total) 1200 / 1200 1000 / 1000
IV piggybacks 100 / 100 100 / 100
Other:
Number of approximated SMALL 6
amounts of urine
Number of approximated MODERATE 2 4
amounts of urine
Number of unmeasured liquid
stools
Rectum 3 2
Laboratory Results
09/08/24 07:31
09/08/24 07:31
Review of Systems
-
Constitutional: No Symptoms
Respiratory: No Symptoms
Cardiac: No Symptoms
Abdomen/GI: No Symptoms
: Dysuria and Urgency
Neurological: No Symptoms
Physical Exam
-
General - well developed, well nourished, no acute distress
Abdomen - soft, non-tender, positive bowel sounds, no CVAT
Genitalia - normal
Counseling
-
Begin tamsulosin
[2024-09-08] MEDS: CATHFLO/ACTIVASE 2 MG INTRACATH (09:03)
[2024-09-08] MEDS: FLOMAX 0.8 MG PO (10:30)
[2024-09-08] MEDS: MORPHINE SULFATE 2 MG IV ×4 (10:30→23:14)
[2024-09-08 11:20] VITALS: BP 143/78
--- NOTE | 2024-09-08 11:32 | W.PN.ID1 ---
Date of Service
Date of Service: September 08, 2024
Today's Communication
continue zosyn at this time - may consider alternatives if no improvement by tomorrow
Assessment / Plan
UTI vs Urethritis
DM2 uncontrolled a1c 10.8
Hemochromatosis
- urine culture here finalized negative - suggests either partial treatment or perhaps urethritis; patient and both adamant that no new sexual partners
- will check for m genitalium and u ureolyticum - send out PCR
- scheduled pyridium, also has PRN morphine
- I reviewed available outpatinet culture results in ecw as well
- continue zosyn at this time
- follow clinically
Chief Complaint
-: UTI
Subjective / Review of Systems
afebrile
bp stable
Decreased urine frequency
Dysuria persists
Vital Signs / Physical Exam
Vital Signs
Vital Signs
Temp Pulse Resp BP Pulse Ox
97.2 F 78 18 143/88 99
09/08/24 08:15 09/08/24 08:15 09/08/24 08:15 09/08/24 08:15 09/08/24 10:15
Physical Exam
Constitutional: No Acute Distress
Cardiovascular: Regular Rate and S1/S2; Negative Murmur or Rub
Pulmonary: Clear and Symmetric; Negative Wheezes or Rales
Gastrointestinal: Soft, Non Tender, Non Distended and Normal Bowel Sounds
Genito-Urinary: Suprapubic Tenderness; Negative CVA Tenderness
Skin: Warm and Dry; Negative Rash or Jaundice
Objective Data
Lab Data
Lab Results
09/08/24 07:31
09/08/24 07:31
Estimated Creat Clear 56 ml/min 09/08/24 07:31
Most recent labs reviewed.
Micro Results:
09/06/24 11:54 Urine Culture - Final
Urine NO GROWTH
--- NOTE | 2024-09-08 11:42 | PTCARENOTE ---
prn pain medication given through R SQ port. heparin flush used after since pt is no longer on continuous IVF. flomax started on patient this morning as well.
[2024-09-08 12:28] VITALS: O2SAT 99
--- NOTE | 2024-09-08 12:36 | PTOTSP ---
Patient demonstrates independence with transfers and ambulation within his room without use of AD. At this time, does not demonstrate continued need for skilled therapy and will be discharged at this time.
If needs change, please re-consult.
[2024-09-08 12:43] LABS: Glucose - Point of Care 152 mg/dl (70-99)
--- NOTE | 2024-09-08 12:57 | CM ---
Reviewed the chart notes and spoke with the patient at the beside. The patient resides with his spouse in a two story home with no steps to enter. The patient reports no DME/VN/SNF in the past. The patient confirmed his pharmacy of choice is the
[facility]. CM continues to be available to patient/family and is monitoring medical plan for needs at discharge.
Plan: Discharge to home when medically stable. No needs anticipated at this time.
[2024-09-08] MEDS: NOVOLOG FLEXPEN-LOW RESISTANCE 1 UNITS SC (13:02)
--- NOTE | 2024-09-08 13:20 | PTCARENOTE ---
09/08/2024 DIABETES EDUCATION
I met with Cornell and his to review diabetes management. Cornell not checking BS at home, states it has been well controlled with diet and exercise, d/c his DM medications as his previous was HbA1c 5-6%. Recent PMH urinary frequency and
diarrhea, states he 'gave up' and started eating sweets and baked goods. HbA1c increased to 10.8% while inpatient. Educated that diet, lack of exercise, not taking medications, infection can increase glucose levels. Declined RD consult, states
diet is great except for recent timeframe of eating sweets.
I educated and demonstrated with Cornell on using glucometer, test strips, lancets; and insulin injection technique, timing, and storage. Discussed normal target glucose ranges and a monitoring schedule. Discussed long acting insulin;
onset/peak/duration, and encouraged him to administer his own injections with RN supervision while admitted. Hypoglycemia s/s and protocol was reviewed and written material was provided. Cornell and spouse verbalized understanding. Encouraged
Cornell to follow up with his PCP for post d/c appointment and to monitor insulin dose and blood glucose levels. P Requested prescription sent to pharmacy for Lantus (as per MD order), glucometer, test strips and lancets for back up SMBG.
Information provided on the outpatient DSME program.
--- NOTE | 2024-09-08 14:14 | PN.CDI ---
CDI
- -
CDI:
Physician Documentation Request
Admit Date: 09/06/24 16:31
Dear Doctor Bryan,
Please review the following and provide your response in the progress notes.
Clinical Indicators:
Height: 5 ft 9 in
Weight:274 lb 0.553 oz
BMI:40.5
Please provide an associated diagnosis related to the abnormal BMI, such as:
BMI > or = to 40
Overweight
Obesity:
Due to excess calories
Drug induced
Due to other cause
Severe or morbid obesity:
With alveolar hypoventilation (Obesity hypoventilation syndrome)
Without alveolar hypoventilation
- BMI is not significant
- Other
Use of terms such as suspected, likely, concern for, or probable (associated with a specific diagnosis that is being evaluated, monitored, or treated as if it exists) are acceptable and can be coded in the inpatient setting, when documented at the
time of discharge.
Thank you,
Rosita Guevara RN, BSN
CDI Specialist
tiger text
Please use your independent medical judgment in providing your response.
[2024-09-08 15:25] VITALS: BP 118/71
[2024-09-08] MEDS: HEPARIN SC (16:23)
[2024-09-08] MEDS: NOVOLOG FLEXPEN-LOW RESISTANCE SC (18:14)
[2024-09-08 18:15] LABS: Glucose - Point of Care 149 mg/dl (70-99)
[2024-09-08] MEDS: FLUSH (NSS) 1 FLUSH IV (20:35)
[2024-09-08 22:32] LABS: Glucose - Point of Care 164 mg/dl (70-99)
[2024-09-08] MEDS: LANTUS 0.24 UNITS SC (22:34)
[2024-09-08 23:06] VITALS: BP 148/80
[2024-09-08] MEDS: TYLENOL 650 MG PO (23:27)
[2024-09-09] MEDS: ZOSYN 50 IV ×4 (02:35→20:04)
[2024-09-09] MEDS: FLUSH (NSS) 1 FLUSH IV (03:26)
[2024-09-09 05:12] LABS: % Basophils 0.3 % (0-2); % Eosinophils 2.4 % (0-6); % Immature Granulocytes 0.4 % (0-0.5); % Lymphocytes 20.3 % (20.5-51.1); % Monocytes 9.4 % (1.7-9.3); % Neutrophils 67.2 % (42.2-75.2); Absolute Eosinophils 0.2 10^3/uL (0-0.7); Absolute Lymphocytes 1.5 10^3/uL (1.2-3.4); Absolute Monocytes 0.7 10^3/uL (0.1-0.6); Absolute Neutrophils 4.8 10^3/uL (1.4-6.5); Hematocrit 36.7 % (39.0-52.0); Mean Corp Hgb Conc. 32.7 g/dL (33.0-37.0); Mean Corpuscular Hgb 30.5 pg (27.0-31.0); Mean Corpuscular Volume 93.4 fL (80.0-94.0); Mean Platelet Volume 12.2 fL (7.4-10.4); Nucleated Red Blood Cells % 0 % (-); Platelet Count 99 10^3/uL (130-400); Red Blood Cell Count 3.93 10^6/uL (4.70-6.10); Red Cell Dist. Width 13.8 % (11.5-14.5); White Blood Cell Count 7.2 10^3/uL (4.8-10.8)
[2024-09-09 05:38] LABS: Blood Urea Nitrogen 29 mg/dl (9-20); Calcium 8.4 mg/dl (8.4-10.2); Carbon Dioxide 21 mmol/L (22-30); Chloride 106 mmol/L (98-107); Estimated Creatinine Clearance 47 ml/min; Potassium 4.2 mmol/L (3.5-5.1); eGFR 37.48
[2024-09-09 05:52] LABS: Glucose 145 mg/dl (70-99); Sodium 136 mmol/L (135-145)
--- NOTE | 2024-09-09 07:06 | PN.DE.MGMTRT ---
Insulin Management
- -
09/09/2024: Diabetes Management Consult Follow up
Patient admitted with c/o persistent urinary urgency and frequency due to UTI and Bilateral hydronephrosis with PMH: Benign HTN, HLD, CKD II, Gout and T2DM, initially first dx in 2019 with an A1C of 9% and started on Jardiance and Metformin at the
time.
Pt reports that he stopped taking his diabetes medication 3 years ago when his A1C improved to 6% and had been exercising and watching his diet which resulted in significant weight loss. He states he had a glucose monitor but does not know where it
is.
Reports he recently has not been compliant with a diabetic diet, has not been exercising and has gained a lot of weight. A1C of 10.8%, Cr 1.6, eGFR 46.06.
Discussed insulin therapy with basal/bolus regimen, however, pt declined stating that he would like to try the regimen that included metformin and Jardiance as he had taken on initial dx 5 years ago. Discussed current A1C and Emphasized importance
of optimal glucose control to reduce risk of diabetes related complications. Pt was agreeable to a combination of basal insulin and oral medications.
Pre meal glucose 149 to 164 09/08.
Patient received HS lantus 24 units, fasting glucose this AM 145. Will continue Farxiga 10 mg daily, metformin 1000 mg BID and glipizide 5 mg BID with low corrective insulin AC and lantus 24 units @ hs.
Discussed with Nurse.
Pt will be seen by the Diabetes RN Educator for monitor and insulin instructions.
Diabetes History
- -
Type of Diabetes: 2 requiring insulin
Pre-Admission Diabetes Regimen
09/08/24 09/09/24
07:31 04:46
Creatinine 1.6 H 1.9 H
Lab Results
Hemoglobin A1c 10.8 % (4.0-5.6) H 09/07/24 05:25
Insulin Pump Settings
IP Diabetes Regimen
09/08/24 09/08/24 09/08/24
07:31 08:07 12:42
Glucose 200 H
POC Glucose 213 H 152 H
09/08/24 09/08/24 09/09/24
18:14 22:30 04:46
Glucose 145 H
POC Glucose 149 H 164 H
Meal type: Breakfast
Meal type: Lunch
Amount consumed: 100%
Amount consumed: 100%
Patient Education
[2024-09-09 08:14] LABS: Glucose - Point of Care 168 mg/dl (70-99)
[2024-09-09] MEDS: ZYLOPRIM 300 MG PO (08:14)
[2024-09-09] MEDS: GLUCOPHAGE 1000 MG PO (08:14)
[2024-09-09] MEDS: NOVOLOG FLEXPEN-LOW RESISTANCE 1 UNITS SC ×2 (08:15→17:15)
[2024-09-09] MEDS: FARXIGA 10 MG PO (08:15)
[2024-09-09] MEDS: CRESTOR 20 MG PO (08:15)
[2024-09-09] MEDS: PROSCAR 5 MG PO (08:15)
[2024-09-09] MEDS: BYSTOLIC 10 MG PO (08:15)
[2024-09-09] MEDS: Pyridium 200 MG PO ×3 (08:15→22:00)
[2024-09-09] MEDS: GLUCOTROL 5 MG PO ×2 (08:15→17:02)
[2024-09-09] MEDS: FLOMAX 0.8 MG PO (08:15)
[2024-09-09] MEDS: NORVASC 10 MG PO (08:15)
[2024-09-09] MEDS: HEPARIN 5000 UNITS SC ×3 (08:15→23:41)
[2024-09-09] MEDS: MORPHINE SULFATE 2 MG IV ×4 (08:25→22:03)
[2024-09-09 08:27] VITALS: BP 147/76
--- NOTE | 2024-09-09 08:32 | W.PN.HOSP.TC ---
Today's Communication/Plan
-
IV antibiotics. Monitor renal function. Nephrology consult
Assessment / Plan
Assessment / Plan
Physical exam:
General: Acutely ill but nontoxic and No Apparent Distress
HEENT: Normocephalic, Atraumatic and Moist Mucous Membranes
Respiratory: Clear to Auscultation; Negative Wheezes, Rales or Rhonchi
Cardiac: Regular Rhythm and S1/S2
GI: Soft, mild tender and Nondistended
Musculoskeletal: No Clubbing, No Cyanosis and presence of bilateral edema
Neuro: Awake, Alert and Oriented, no gross neurological deficits but generalized weakness
Psych: Anxious
A/P:
Recurrent UTI (concern for urethritis):
On IV Zosyn
Current urine culture in-house is sterile
History ESBL in the past
ID consult and follow-up appreciated
ID requested M genitalium and U ureolyticum testing
PT OT
BPH with incomplete bladder emptying:
Continue bladder scan
Urology consult appreciated
Continue finasteride
Started on Flomax
Pyridium and morphine
No significant hydronephrosis per Urology
ANNIE on CKD vs CKD:
Worsening renal function today 09/09
Will request nephrology consult
Unclear baseline
Creatinine 1.9 today
There could be a component of postobstructive, medications, UTI, contrast exposure and solitary functioning kidney.
Stop IV fluids today and monitor renal function
Last creatinine back in November 2022 1.2
Avoid nephrotoxic
Monitor renal function
Hyponatremia:
Continue to monitor
Hypertension:
Continue home antihypertensives
Hyperlipidemia:
Continue statin
Diabetes mellitus type 2, new onset:
Insulin sliding scale
Hemoglobin A1c 10.8
Diabetic education
On Lantus 24 units daily
Insulin sliding scale
On metformin, glipizide, and Farxiga but nephrology recommended holding metformin and Farxiga for now.
Gout:
Continue allopurinol
DVT prophylaxis:
Heparin SQ
CODE STATUS:
Full code
Total time spent on today's encounter was 52 minutes which included time spent in counseling the patient/family regarding diagnosis and treatment plan as listed above, goals of care, and symptom management. Case was discussed with nursing staff,
specialists, and care coordinators/case management. All labs and imaging personally reviewed by me. Remainder the time spent in detailed review of previous records, lab data, imaging, and other medical provider documentation.
Anticipated Discharge: > 48 hours
Subjective/Interval History
-
Date of Service: September 09, 2024
Patient dysuria improving. Afebrile.
Objective Data
-
Labs:
Laboratory Results
09/09/24
04:46
WBC 7.2
Hgb 12.0 L
Hct 36.7 L
Plt Count 99 L
Sodium 136
Potassium 4.2
Chloride 106
Carbon Dioxide 21 L
BUN 29 H
Creatinine 1.9 H
Glucose 145 H
Calcium 8.4
Vital Signs:
Vital Signs
Temp Pulse Resp BP Pulse Ox
97.5 F 75 17 147/76 95
09/09/24 08:27 09/09/24 08:27 09/09/24 08:27 09/09/24 08:27 09/09/24 08:27
I&O
09/08/24 09/09/24 09/10/24
06:59 06:59 06:59
Intake Total 2900 / 2900 2329 / 2330
Balance 2900 / 2900 2329 / 2330
--- NOTE | 2024-09-09 09:51 | W.PN.URO.CBU ---
Today's Communication / Plan
-
Antibiotics per ID
Patient's symptom complex is slowly responding to current medical regimen
Assessment / Plan
-
Cystitis/prostatitis/urethritis
Incomplete bladder emptying
---
Urine culture negative
No fever
No leukocytosis
Diagnosis
-
Date of Service: September 09, 2024
-
Patient Diagnosis:
Cystitis
Possible pyelonephritis
Hx of colovesical fistula: no CT scan evidence of recurrence
Subjective
-
Slowly improving, yet patient still requesting morphine
Objective
-
Vital Signs
Temp Pulse Resp BP Pulse Ox
97.5 F 75 17 147/76 95
09/09/24 08:27 09/09/24 08:27 09/09/24 08:27 09/09/24 08:27 09/09/24 08:27
Intake and Output
09/08/24 09/09/24 09/10/24
06:59 06:59 06:59
Intake Total 2900 / 2900 2330 / 2330
Balance 2900 / 2900 2330 / 2330
Intake:
Oral fluids 1800 / 1800 1800 / 1800
IV fluids (Total) 1000 / 1000 230 / 230
IV piggybacks 100 / 100 300 / 300
Other:
Number of approximated SMALL 30
amounts of urine
Number of approximated MODERATE 4 4
amounts of urine
Number of unmeasured liquid
stools
Rectum 2
Laboratory Results
09/09/24 04:46
09/09/24 04:46
Review of Systems
-
Constitutional: No Symptoms
Respiratory: No Symptoms
Cardiac: No Symptoms
Abdomen/GI: No Symptoms
: Dysuria, Frequency and Urgency
Neurological: No Symptoms
Physical Exam
-
General - well developed, well nourished, no acute distress
Abdomen - soft, non-tender, no CVAT
Genitalia - normal
Counseling
-
No intervention indicated at this time
--- NOTE | 2024-09-09 09:59 | W.CON.NEPH ---
Consultation
-
Date/Time Consultation Requested: 09/09/2024 9 AM
Date/Time Consultation Performed: 09/09/2024 10 AM
Requesting Provider: Dr. Adams
Performing Provider: Dr. Ross
Reason for Consultation: ANNIE
Medical History
-
Chief Complaint: Urinary frequency urgency
History of Present Illness:
This is a 69-year-old gentleman who has hypertension controlled with a multidrug regimen, diabetes mellitus type 2 not on medications as an outpatient. He came to the emergency room because of 4 weeks of persistent urinary urgency and frequency.
He has not been sleeping because he has to go to the bathroom every 10 minutes. He was given 2 courses of antibiotics, on the first was Levaquin which he says was twice daily for 5 days. He then started Bactrim which he only took 2 days worth
before he came to the emergency room. At the time of admission his creatinine was 1.6 up from a baseline of 1.2 by his report. It is now risen to 1.9. He says that he only has 1 functioning kidney disease 1 is very small. He was noted to have
mild hydronephrosis on CT scan but bladder scans have otherwise been good. We are asked to assist with management of the ANNIE.
Past Medical History
benign hypertension
hyperlipidemia
CKD II
gout
BPH
hx bladder stones x2
hx staghorn caliculit (uric acid - dissolved with med >20 yrs ago)
cystoscopy (stone retrieval and U stent)
laparoscopic sigmoidectomy/takedown colovesical fistula (11/16/2022)
Right shoulder repair
Social History
Tobacco: Non-Smoker
Alcohol: Occasional
Family History
Family History: Not Pertinent
Allergies / Home Medications
Allergy/AdvReac Type Severity Reaction Status Date / Time
GERARDO Inhibitors Allergy 'SHUT MY Verified 09/06/24 11:55
KIDNEYS
DOWN'
�Medication �Instructions �Recorded �Confirmed �Type
allopurinol 300 mg tablet 300 mg PO DAILY Gout 04/12/20 09/06/24 History
amlodipine 10 mg tablet 10 mg PO DAILY Blood pressure 04/13/20 09/06/24 History
acetaminophen 325 mg tablet 650 mg (2 x 325 mg) PO Q4HPRN PRN 04/16/20 09/06/24 Rx
mild pain/SANDOVAL/temp> 100.4F
finasteride 5 mg tablet 5 mg PO DAILY #30 tabs 08/10/22 09/06/24 Rx
nebivolol 10 mg tablet 10 mg PO DAILY Blood pressure 11/09/22 09/06/24 History
rosuvastatin 20 mg tablet 20 mg PO DAILY 09/06/24 09/06/24 History
sulfamethoxazole 800 1 tab PO BID 09/06/24 09/06/24 History
mg-trimethoprim 160 mg tablet
(Bactrim DS)
vibegron 75 mg tablet (Gemtesa) 75 mg PO DAILY 09/06/24 09/06/24 History
blood sugar diagnostic (OneTouch ##200 09/08/24 Rx
Verio test strips)
blood-glucose meter (OneTouch #1 ea 09/08/24 Rx
Verio Flex Meter)
lancets 30 gauge (OneTouch Delica #200 ea 09/08/24 Rx
Plus Lancet)
Review of Systems
-
No chest pain or shortness of breath, urinary urgency improving
All other systems: Negative unless noted
Physical Exam
Vital Signs
Vital Signs
Temp Pulse Resp BP Pulse Ox
97.5 F 75 17 147/76 95
09/09/24 08:27 09/09/24 08:27 09/09/24 08:27 09/09/24 08:27 09/09/24 08:27
Lab Results
WBC 7.2 10^3/uL (4.8-10.8) 09/09/24 04:46
RBC 3.93 10^6/uL (4.70-6.10) L 09/09/24 04:46
Hgb 12.0 g/dL (13.0-18.0) L 09/09/24 04:46
Hct 36.7 % (39.0-52.0) L 09/09/24 04:46
Plt Count 99 10^3/uL (130-400) L 09/09/24 04:46
Sodium 136 mmol/L (135-145) 09/09/24 04:46
Potassium 4.2 mmol/L (3.5-5.1) 09/09/24 04:46
Chloride 106 mmol/L (98-107) 09/09/24 04:46
Carbon Dioxide 21 mmol/L (22-30) L 09/09/24 04:46
BUN 29 mg/dl (9-20) H 09/09/24 04:46
Creatinine 1.9 mg/dL (0.7-1.3) H 09/09/24 04:46
eGFR 37.48 09/09/24 04:46
Glucose 145 mg/dl (70-99) H 09/09/24 04:46
Calcium 8.4 mg/dl (8.4-10.2) 09/09/24 04:46
Laboratory Tests
11/18/22
06:[address] abdomen pelvis with contrast on 09/06/2024
IMPRESSION:
1. SEVERE ACUTE CYSTITIS.
2. Mild bilateral hydroureteronephrosis with mild urothelial thickening in the left renal pelvis suggesting ascending urinary tract infection.
3. Severe chronic left renal cortical volume loss (either secondary to chronic ischemia or pyelonephritis).
4. Moderately enlarged prostate gland.
5. Severe colonic diverticulosis.
6. Previous sigmoidectomy.
7. Mild hepatic cirrhosis, mild hepatomegaly, and mild diffuse hepatic steatosis.
8. Mild splenomegaly.
Physical Exam
Patient is awake alert oriented and in no distress. Mood and affect were pleasant, insight and judgment were good. Pupils are equal round and reactive to light, extraocular movements are intact, sclera were anicteric. Hearing was normal, ears and
nose are intact. Oropharynx was clear. Neck was supple with trachea midline and no thyromegaly. Heart was regular rate and rhythm without rubs. Lower extremities without edema. Lungs were clear to auscultation bilaterally and with normal
excursion. Abdomen was soft, nontender, with normal active bowel sounds, and no hepatosplenomegaly. Skin was without rash and with normal turgor.
Data Reviewed
-
CT Scan: Report Reviewed by me
Medical Tests (Nuc Med, Echo etc): Image Personally Visualized and interpreted (EKG 09/08/2024 by my reading normal sinus rhythm left bundle branch block)
Labs: Labs Reviewed by me
Old Records: Reviewed
Assessment/Plan
-
Assessment
Recurrent UTI
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
Mild bilateral hydronephrosis
ANNIE
Diabetes mellitus type 2
Hypertension
Plan
Antibiotics per primary team
Hold metformin and Farxiga given ANNIE
ANNIE likely on the basis of antibiotics, UTI, mild obstructive nature, contrast exposure in solitary functioning kidney setting
Follow BMP
Check urine studies
--- NOTE | 2024-09-09 10:03 | W.PN.ID1 ---
Date of Service
Date of Service: September 09, 2024
Today's Communication
- continue zosyn at this time
- follow renal fucntion
Assessment / Plan
UTI vs Urethritis
DM2 uncontrolled a1c 10.8
Hemochromatosis
Functionally single kidney
- patient report notable improvement overnight
- a repeat urine culture is being sent today - will follow up
- urine culture here finalized negative - suggests either partial treatment or perhaps urethritis; patient and both adamant that no new sexual partners
- will check for m genitalium and u ureolyticum - send out PCR - pending
- scheduled pyridium, also has PRN morphine
- QTc over 500
- continue zosyn at this time
- follow renal function, may retry bactrim pending improved renal function - alternatively we have discussed a course of home IV antibiotics
- follow clinically
Chief Complaint
-: UTI (cystitis) and Other
Subjective / Review of Systems
remains afebrile
bp stable
reports improved dysuria and urgency
sleeping better
dseean noted
Vital Signs / Physical Exam
Vital Signs
Vital Signs
Temp Pulse Resp BP Pulse Ox
97.5 F 75 17 147/76 95
09/09/24 08:27 09/09/24 08:27 09/09/24 08:27 09/09/24 08:27 09/09/24 08:27
Physical Exam
Constitutional: No Acute Distress and Chronically Ill
Cardiovascular: Regular Rate and S1/S2; Negative Murmur or Rub
Pulmonary: Clear and Symmetric; Negative Wheezes or Rales
Gastrointestinal: Soft, Non Tender, Non Distended and Normal Bowel Sounds
Genito-Urinary: Negative Suprapubic Tenderness or CVA Tenderness
Skin: Warm and Dry; Negative Rash or Jaundice
Objective Data
Lab Data
Lab Results
09/09/24 04:46
09/09/24 04:46
Estimated Creat Clear 47 ml/min 09/09/24 04:46
Most recent labs reviewed.
Micro Results:
09/06/24 11:54 Urine Culture - Final
Urine NO GROWTH
--- NOTE | 2024-09-09 12:23 | CM ---
Reviewed the chart notes. CM continues to be available to patient/family and is monitoring medical plan for needs at discharge.
Plan: Discharge to home when medically stable. No needs anticipated at this time.
[2024-09-09] MEDS: NOVOLOG FLEXPEN-LOW RESISTANCE SC (12:36)
[2024-09-09 12:37] LABS: Glucose - Point of Care 139 mg/dl (70-99)
[2024-09-09 13:32] LABS: Body Fluid for Eosinophils 2% Eosinophils seen
[2024-09-09] MEDS: TYLENOL 650 MG PO (15:33)
[2024-09-09 16:17] VITALS: BP 101/44
[2024-09-09 16:29] LABS: Urine Sodium 73 mmol/L (30-90)
[2024-09-09 17:14] LABS: Glucose - Point of Care 173 mg/dl (70-99)
[2024-09-09 21:57] LABS: Glucose - Point of Care 150 mg/dl (70-99)
[2024-09-09] MEDS: LANTUS 0.24 UNITS SC (22:05)
[2024-09-09 23:51] VITALS: BP 131/65
[2024-09-10] MEDS: ZOSYN 50 IV ×2 (02:11→07:53)
[2024-09-10 05:37] LABS: Hematocrit 36.4 % (39.0-52.0); Mean Corpuscular Hgb 30.8 pg (27.0-31.0); Mean Corpuscular Volume 93.3 fL (80.0-94.0); Mean Platelet Volume 13.4 fL (7.4-10.4); Platelet Count 95 10^3/uL (130-400); Red Cell Dist. Width 13.6 % (11.5-14.5); White Blood Cell Count 6.2 10^3/uL (4.8-10.8)
[2024-09-10 05:42] LABS: Blood Urea Nitrogen 26 mg/dl (9-20); Calcium 8.7 mg/dl (8.4-10.2); Carbon Dioxide 23 mmol/L (22-30); Chloride 105 mmol/L (98-107); Estimated Creatinine Clearance 53 ml/min; Glucose 104 mg/dl (70-99); Potassium 4.5 mmol/L (3.5-5.1); Sodium 137 mmol/L (135-145); eGFR 42.83
[2024-09-10 07:42] LABS: Glucose - Point of Care 99 mg/dl (70-99)
[2024-09-10 07:44] VITALS: BP 158/77
[2024-09-10] MEDS: CRESTOR 20 MG PO (07:52)
[2024-09-10] MEDS: Pyridium 200 MG PO ×3 (07:52→21:50)
[2024-09-10] MEDS: BYSTOLIC 10 MG PO (07:52)
[2024-09-10] MEDS: GLUCOTROL 5 MG PO (07:52)
[2024-09-10] MEDS: NORVASC 10 MG PO (07:53)
[2024-09-10] MEDS: HEPARIN 5000 UNITS SC ×3 (07:53→23:15)
[2024-09-10] MEDS: FLOMAX 0.8 MG PO (07:53)
[2024-09-10] MEDS: NOVOLOG FLEXPEN-LOW RESISTANCE SC (07:53)
[2024-09-10] MEDS: PROSCAR 5 MG PO (07:53)
[2024-09-10] MEDS: ZYLOPRIM 100 MG PO (07:53)
[2024-09-10] MEDS: MORPHINE SULFATE 2 MG IV ×3 (08:10→17:55)
--- NOTE | 2024-09-10 08:23 | PN.DE.MGMTRT ---
Insulin Management
- -
09/10/2024: Diabetes Management Consult Follow up
Patient admitted with c/o persistent urinary urgency and frequency due to UTI and Bilateral hydronephrosis with PMH: Benign HTN, HLD, CKD II, Gout and T2DM, initially first dx in 2019 with an A1C of 9% and started on Jardiance and Metformin at the
time.
Pt reports that he stopped taking his diabetes medication 3 years ago when his A1C improved to 6% and had been exercising and watching his diet which resulted in significant weight loss. He states he had a glucose monitor but does not know where it
is.
Reports he recently has not been compliant with a diabetic diet, has not been exercising and has gained a lot of weight. A1C of 10.8%, Cr 1.6, eGFR 46.06.
09/09 Pre meal glucose 139 to 173.
09/10 Patient received HS lantus 24 units, fasting glucose this AM 104 venous. CR 1.7, eGFR 42.83 Farxiga and metformin 1000 mg BID,glipizide 5 mg BID stopped. Ac novolog 3 units started with dinner, continue low corrective insulin AC and lantus
24 units @ hs.
Discussed with Nurse. Nurse to reinforce insulin administration and have patient self inject.
Pt was seen by the Diabetes RN Educator 09/08 for monitor and insulin instructions.
09/07 Discussed insulin therapy with basal/bolus regimen, however, pt declined stating that he would like to try the regimen that included metformin and Jardiance as he had taken on initial dx 5 years ago. Discussed current A1C and Emphasized
importance of optimal glucose control to reduce risk of diabetes related complications. Pt was agreeable to a combination of basal insulin and oral medications.
Diabetes History
- -
Type of Diabetes: 2
Pre-Admission Diabetes Regimen
09/10/24
04:52
Creatinine 1.7 H
Lab Results
Hemoglobin A1c 10.8 % (4.0-5.6) H 09/07/24 05:25
Insulin Pump Settings
IP Diabetes Regimen
09/09/24 09/09/24 09/09/24
12:35 17:13 21:55
Glucose
POC Glucose 139 H 173 H 150 H
09/10/24 09/10/24
04:52 07:42
Glucose 104 H
POC Glucose 99
Meal type: Lunch
Meal type: Breakfast
Amount consumed: 100%
Amount consumed: 100%
Patient Education
--- NOTE | 2024-09-10 09:04 | W.PN.HOSP.TC ---
Today's Communication/Plan
-
IV antibiotics. Insulin.
Assessment / Plan
Assessment / Plan
Physical exam:
General: Acutely ill but nontoxic and No Apparent Distress
HEENT: Normocephalic, Atraumatic and Moist Mucous Membranes
Respiratory: Clear to Auscultation; Negative Wheezes, Rales or Rhonchi
Cardiac: Regular Rhythm and S1/S2
GI: Soft, mild tender and Nondistended
Musculoskeletal: No Clubbing, No Cyanosis and presence of bilateral edema
Neuro: Awake, Alert and Oriented, no gross neurological deficits but generalized weakness
Psych: Anxious
A/P:
Recurrent UTI (concern for urethritis):
Changing IV antibiotics to ertapenem
Current urine culture in-house is sterile
History ESBL in the past
ID consult and follow-up appreciated
ID requested M genitalium and U ureolyticum testing
PT OT
Plan to do outpatient IV antibiotics
BPH with incomplete bladder emptying:
Continue bladder scan
Urology consult appreciated
Continue finasteride
Started on Flomax
Pyridium and morphine
No significant hydronephrosis per Urology
ANNIE on CKD:
Probable component of ATN
Nephrology consult and follow-up appreciated
Renal function started to improve
Unclear baseline
There could be a component of postobstructive, medications, UTI, contrast exposure and solitary functioning kidney.
Avoid nephrotoxic
Monitor renal function
Hyponatremia:
Continue to monitor
Hypertension:
Continue home antihypertensives
Hyperlipidemia:
Continue statin
Diabetes mellitus type 2, new onset:
Insulin sliding scale
Hemoglobin A1c 10.8
Diabetic education
Insulin sliding scale
Stop all oral hypoglycemics given ANNIE
Discussed with patient and will do long-acting and short acting insulin even upon discharge
Gout:
Continue allopurinol
DVT prophylaxis:
Heparin SQ
CODE STATUS:
Full code
Anticipated Discharge: 24 - 48 hours
Subjective/Interval History
-
Date of Service: September 10, 2024
Patient feels better overall. Afebrile
Objective Data
-
Labs:
Laboratory Results
09/10/24
04:52
WBC 6.2
Hgb 12.0 L
Hct 36.4 L
Plt Count 95 L
Sodium 137
Potassium 4.5
Chloride 105
Carbon Dioxide 23
BUN 26 H
Creatinine 1.7 H
Glucose 104 H
Calcium 8.7
Vital Signs:
Vital Signs
Temp Pulse Resp BP Pulse Ox
97.9 F 69 18 158/77 94
09/10/24 07:44 09/10/24 07:44 09/10/24 07:44 09/10/24 07:44 09/10/24 07:44
I&O
09/09/24 09/10/24 09/11/24
06:59 06:59 06:59
Intake Total 2330 / 2330 1500 / 1500
Balance 2330 / 2330 1500 / 1500
--- NOTE | 2024-09-10 09:23 | W.PN.ID1 ---
Date of Service
Date of Service: September 10, 2024
Today's Communication
- switched to ertapenem - plan 14 day course 09/06-09/19
- follow renal function
- follow clinically, stabel for dc when home IV antibiotics set up
Assessment / Plan
UTI vs Urethritis
DM2 uncontrolled a1c 10.8
Hemochromatosis
Functionally single kidney
- patient report notable improvement overnight
- urine culture here finalized negative - suggests either partial treatment or perhaps urethritis; patient and both adamant that no new sexual partners
- will check for m genitalium and u ureolyticum - send out PCR - pending
- scheduled Pyridium, also has PRN morphine
- QTc over 500
- switched to ertapenem - plan 14 day course 09/06-09/19
- follow renal function
- follow clinically, stabel for dc when home IV antibiotics set up
Chief Complaint
-: UTI (cystitis) and Other
Subjective / Review of Systems
afebrile
bp stable
no events overnight
Vital Signs / Physical Exam
Vital Signs
Vital Signs
Temp Pulse Resp BP Pulse Ox
97.9 F 69 18 158/77 94
09/10/24 07:44 09/10/24 07:44 09/10/24 07:44 09/10/24 07:44 09/10/24 07:44
Physical Exam
Constitutional: No Acute Distress
Cardiovascular: Regular Rate and S1/S2; Negative Murmur or Rub
Pulmonary: Clear and Symmetric; Negative Wheezes or Rales
Gastrointestinal: Soft, Non Tender, Non Distended and Normal Bowel Sounds
Genito-Urinary: Negative Suprapubic Tenderness or CVA Tenderness
Skin: Warm and Dry; Negative Rash or Jaundice
Objective Data
Lab Data
Lab Results
09/10/24 04:52
09/10/24 04:52
Estimated Creat Clear 53 ml/min 09/10/24 04:52
Most recent labs reviewed.
Micro Results:
09/06/24 11:54 Urine Culture - Final
Urine NO GROWTH
--- NOTE | 2024-09-10 10:00 | PN.CDI ---
CDI
- -
CDI:
Physician Documentation Request
Admit Date: 09/06/24 16:31
Dear Doctor Kallie,
patient is admitted for management of UTI. Urology notes include a diagnosis of 'Cystitis/prostatitis/urethritis'
Please you please clarify which of the following accurately represents the acuity of the prostatitis
____ Acute
Chronic
____ Other
Use of terms such as suspected, likely, concern for, or probable (associated with a specific diagnosis that is being evaluated, monitored, or treated as if it exists) are acceptable and can be coded in the inpatient setting, when documented at the
time of discharge.
Thank you,
Rosita Guevara RN, BSN
CDI Specialist
tiger text
Please use your independent medical judgment in providing your response.
--- NOTE | 2024-09-10 10:15 | W.PN.URO.CBU ---
Today's Communication / Plan
-
As per ID: urine C&S repeated today
Assessment / Plan
-
Cystitis; possible sub acute prostatitis
Incomplete bladder emptying
---
Urine culture negative
No fever
No leukocytosis
Diagnosis
-
Date of Service: September 10, 2024
-
Patient Diagnosis:
Cystitis
Possible pyelonephritis
Hx of colovesical fistula: no CT scan evidence of recurrence
Subjective
-
Urine frequency continues to lessen
Patient continues to utilize MSO4
Objective
-
Vital Signs
Temp Pulse Resp BP Pulse Ox
97.9 F 69 18 158/77 94
09/10/24 07:44 09/10/24 07:44 09/10/24 07:44 09/10/24 07:44 09/10/24 07:44
Intake and Output
09/09/24 09/10/24 09/11/24
06:59 06:59 06:59
Intake Total 2330 / 2330 1500 / 1500
Balance 2330 / 2330 1500 / 1500
Intake:
Oral fluids 1800 / 1800 1500 / 1500
IV fluids (Total) 230 / 230
IV piggybacks 300 / 300
Other:
Number of approximated SMALL 30
amounts of urine
Number of approximated MODERATE 4 5
amounts of urine
Laboratory Results
09/10/24 04:52
09/10/24 04:52
Review of Systems
-
Constitutional: Fatigue
Cardiac: No Symptoms
Abdomen/GI: No Symptoms
: Dysuria and Frequency
Physical Exam
-
General - well developed, well nourished, no acute distress
Abdomen - soft, non-tender, no CVAT
Genitalia - normal
Counseling
-
Continue medical management
Patient responding favorably to treatment
--- NOTE | 2024-09-10 11:13 | W.PN.NEPH.PH ---
Today's Communication / Plan
-
follow BMP
Assessment/Plan
-
Assessment
Recurrent UTI
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
Mild bilateral hydronephrosis
ANNIE, probable ATN
Diabetes mellitus type 2
Hypertension
Plan
Antibiotics per primary team
Holding metformin and Farxiga given ANNIE
ANNIE likely on the basis of antibiotics, UTI, mild obstructive nature, contrast exposure in solitary functioning kidney setting, now probable ATN
Follow BMP
supportative care for ANNIE
-
-
Date of Service: September 10, 2024
CC / HPI / ROS
-
Chief Complaint:
ANNIE
History of Present Illness:
ANNIE/Cr stable at 1.7
BP stable high
ABx for UTI
Review of Systems:
no CP/SOB
Labs
-
Labs:
WBC 6.2 10^3/uL (4.8-10.8) 09/10/24 04:52
RBC 3.90 10^6/uL (4.70-6.10) L 09/10/24 04:52
Hgb 12.0 g/dL (13.0-18.0) L 09/10/24 04:52
Hct 36.4 % (39.0-52.0) L 09/10/24 04:52
Plt Count 95 10^3/uL (130-400) L 09/10/24 04:52
Sodium 137 mmol/L (135-145) 09/10/24 04:52
Potassium 4.5 mmol/L (3.5-5.1) 09/10/24 04:52
Chloride 105 mmol/L (98-107) 09/10/24 04:52
Carbon Dioxide 23 mmol/L (22-30) 09/10/24 04:52
BUN 26 mg/dl (9-20) H 09/10/24 04:52
Creatinine 1.7 mg/dL (0.7-1.3) H 09/10/24 04:52
eGFR 42.83 09/10/24 04:52
Glucose 104 mg/dl (70-99) H 09/10/24 04:52
Calcium 8.7 mg/dl (8.4-10.2) 09/10/24 04:52
Physical Exam
-
Vital Signs:
Vital Signs
Temp Pulse Resp BP Pulse Ox
97.9 F 69 18 158/77 94
09/10/24 07:44 09/10/24 07:44 09/10/24 07:44 09/10/24 07:44 09/10/24 07:44
Cardiovascular:: Regular rate and rhythm
Respiratory:: Bilateral: CTA
Lung Excursion:: Normal
Abdomen:: Nontender and Soft
Bowel Sounds:: Normal
Extremity Edema:: None: Bilateral:
--- NOTE | 2024-09-10 11:44 | CM ---
Addendum entered by Rosalie Goldstein RN 09/10/24 13:47:
Per [facility] Liaison, the medications need to have a precert. They will start the process of precertification. Attending and ID updated.
Original Note:
Reviewed the chart notes. Received a script for IV abx. Clinicals and script faxed to [facility] for pricing. Midline to be placed. Referral sent to [facility]. CM continues to be available to patient/family and is monitoring medical plan for
needs at discharge.
Plan: Discharge to home with IV abx and VN services for midline management.
[2024-09-10 12:17] LABS: Glucose - Point of Care 155 mg/dl (70-99)
[2024-09-10] MEDS: NOVOLOG FLEXPEN-LOW RESISTANCE 1 UNITS SC ×2 (12:17→17:56)
[2024-09-10] MEDS: INVANZ 60 MG IV (12:17)
[2024-09-10] MEDS: FLEXERIL 5 MG PO ×2 (13:13→23:19)
[2024-09-10 15:37] VITALS: BP 128/61
[2024-09-10 17:51] LABS: Glucose - Point of Care 154 mg/dl (70-99)
[2024-09-10] MEDS: NOVOLOG FLEXPEN 3 UNITS SC (17:56)
[2024-09-10] MEDS: TYLENOL 650 MG PO (19:59)
[2024-09-10 21:38] LABS: Glucose - Point of Care 189 mg/dl (70-99)
[2024-09-10] MEDS: LANTUS 0.24 UNITS SC (21:49)
[2024-09-10 23:36] VITALS: BP 114/60
[2024-09-11 06:57] LABS: Hematocrit 37.5 % (39.0-52.0); Hemoglobin 12.2 g/dL (13.0-18.0); Mean Corp Hgb Conc. 32.5 g/dL (33.0-37.0); Mean Corpuscular Hgb 30.6 pg (27.0-31.0); Mean Platelet Volume 13.4 fL (7.4-10.4); Platelet Count 105 10^3/uL (130-400); Red Blood Cell Count 3.99 10^6/uL (4.70-6.10); Red Cell Dist. Width 13.6 % (11.5-14.5); White Blood Cell Count 5.4 10^3/uL (4.8-10.8)
[2024-09-11 07:18] LABS: Blood Urea Nitrogen 22 mg/dl (9-20); Calcium 8.8 mg/dl (8.4-10.2); Chloride 106 mmol/L (98-107); Estimated Creatinine Clearance 60 ml/min; Glucose 137 mg/dl (70-99); Potassium 4.7 mmol/L (3.5-5.1); Sodium 135 mmol/L (135-145); eGFR 49.77
[2024-09-11 07:27] LABS: Carbon Dioxide 22 mmol/L (22-30)
[2024-09-11 07:45] VITALS: BP 127/75
[2024-09-11 08:03] LABS: Glucose - Point of Care 117 mg/dl (70-99)
--- NOTE | 2024-09-11 08:34 | PN.DE.MGMTRT ---
Insulin Management
- -
09/11/2024: Diabetes Management Follow up
Patient admitted with c/o persistent urinary urgency and frequency due to UTI and Bilateral hydronephrosis with PMH: Benign HTN, HLD, CKD II, Gout and T2DM, initially first dx in 2019 with an A1C of 9% and started on Jardiance and Metformin at the
time.
Pt reports that he stopped taking his diabetes medication 3 years ago when his A1C improved to 6% and had been exercising and watching his diet which resulted in significant weight loss. He states he had a glucose monitor but does not know where it
is.
Reports he recently has not been compliant with a diabetic diet, has not been exercising and has gained a lot of weight. A1C of 10.8%, Cr 1.6, eGFR 46.06.
09/07 Discussed insulin therapy with basal/bolus regimen, however, pt declined stating that he would like to try the regimen that included metformin and Jardiance as he had taken on initial dx 5 years ago. Discussed current A1C and Emphasized
importance of optimal glucose control to reduce risk of diabetes related complications. Pt was agreeable to a combination of basal insulin and oral medications.
09/11, Pt awake, alert, oriented, sitting up in bed, offers no complaints, able to discuss diabetes care plan.
09/10 Farxiga and metformin 1000 mg BID,glipizide 5 mg BID stopped and started on AC NovoLog, glucose stable and in range.
Pre meal glucose 99 to 155. FBG 137(V), 117 POC. CR 1.5, eGFR 49.77 today.
Will make no changes to current regimen: Cont AC NovoLog 3 units, Lantus 24 units @ hs and continue low corrective insulin AC
Discussed with Nurse. Nurse to reinforce insulin administration and have patient self inject. Will cont to follow and make further dose adjustments if necessary.
Pt was seen by the Diabetes RN Educator 09/08 for monitor and insulin instructions.
Diabetes History
- -
Type of Diabetes: 2 requiring insulin
Pre-Admission Diabetes Regimen
09/11/24
05:41
Creatinine 1.5 H
Lab Results
Hemoglobin A1c 10.8 % (4.0-5.6) H 09/07/24 05:25
Insulin Pump Settings
IP Diabetes Regimen
09/10/24 09/10/24 09/10/24
12:16 17:51 21:37
Glucose
POC Glucose 155 H 154 H 189 H
09/11/24 09/11/24
05:41 08:02
Glucose 137 H
POC Glucose 117 H
Meal type: Lunch
Meal type: Breakfast
Amount consumed: 100%
Amount consumed: 100%
Patient Education
[2024-09-11] MEDS: ZYLOPRIM 100 MG PO (08:43)
[2024-09-11] MEDS: Pyridium 200 MG PO ×3 (08:43→21:21)
[2024-09-11] MEDS: NOVOLOG FLEXPEN-LOW RESISTANCE SC ×2 (08:43→18:09)
[2024-09-11] MEDS: BYSTOLIC 10 MG PO (08:43)
[2024-09-11] MEDS: CRESTOR 20 MG PO (08:43)
[2024-09-11] MEDS: FLOMAX 0.8 MG PO (08:43)
[2024-09-11] MEDS: HEPARIN 5000 UNITS SC ×2 (08:44→16:15)
[2024-09-11] MEDS: NORVASC 10 MG PO (08:44)
[2024-09-11] MEDS: NOVOLOG FLEXPEN 3 UNITS SC ×3 (08:44→18:09)
[2024-09-11] MEDS: PROSCAR 5 MG PO (08:44)
--- NOTE | 2024-09-11 08:57 | W.PN.HOSP.TC ---
Today's Communication/Plan
-
Continue IV antibiotics.
Assessment / Plan
Assessment / Plan
Physical exam:
General: Acutely ill but nontoxic and No Apparent Distress
HEENT: Normocephalic, Atraumatic and Moist Mucous Membranes
Respiratory: Clear to Auscultation; Negative Wheezes, Rales or Rhonchi
Cardiac: Regular Rhythm and S1/S2
GI: Soft, mild tender and Nondistended
Musculoskeletal: No Clubbing, No Cyanosis and presence of bilateral edema
Neuro: Awake, Alert and Oriented, no gross neurological deficits but generalized weakness
Psych: Anxious
A/P:
Recurrent UTI (concern for urethritis):
Changing IV antibiotics to ertapenem
Current urine culture in-house is sterile
History ESBL in the past
ID consult and follow-up appreciated
ID requested M genitalium and U ureolyticum testing
PT OT
Plan to do outpatient IV antibiotics--> waiting for set up of antibiotics for discharge
BPH with incomplete bladder emptying:
Continue bladder scan
Urology consult appreciated
Continue finasteride
Started on Flomax
Pyridium and morphine
No significant hydronephrosis per Urology
ANNIE on CKD:
Probable component of ATN
Nephrology consult and follow-up appreciated
Renal function started to improve
Unclear baseline
There could be a component of postobstructive, medications, UTI, contrast exposure and solitary functioning kidney.
Avoid nephrotoxic
Monitor renal function
Hyponatremia:
Continue to monitor
Hypertension:
Continue home antihypertensives
Hyperlipidemia:
Continue statin
Diabetes mellitus type 2, new onset:
Insulin sliding scale
Hemoglobin A1c 10.8
Diabetic education
Insulin sliding scale
Stop all oral hypoglycemics given ANNIE
Discussed with patient and will do long-acting and short acting insulin even upon discharge
Gout:
Continue allopurinol
DVT prophylaxis:
Heparin SQ
CODE STATUS:
Full code
Anticipated Discharge: 24 - 48 hours
Subjective/Interval History
-
Date of Service: September 11, 2024
Patient doing well. Afebrile
Objective Data
-
Labs:
Laboratory Results
09/11/24 09/11/24
05:41 05:42
WBC 5.4
Hgb 12.2 L
Hct 37.5 L
Plt Count 105 L
Sodium 135
Potassium 4.7
Chloride 106
Carbon Dioxide 22
BUN 22 H
Creatinine 1.5 H
Glucose 137 H
Calcium 8.8
Vital Signs:
Vital Signs
Temp Pulse Resp BP Pulse Ox
98.8 F 75 17 127/75 94
09/11/24 07:45 09/11/24 07:45 09/11/24 07:45 09/11/24 07:45 09/11/24 07:45
I&O
09/10/24 09/11/24 09/12/24
06:59 06:59 06:59
Intake Total 1500 / 1500 870 / 870
Balance 1500 / 1500 870 / 870
--- NOTE | 2024-09-11 10:56 | CM ---
Addendum entered by Rosalie Goldstein RN 09/11/24 15:52:
Faxed forms on chart.
Addendum entered by Rosalie Goldstein RN 09/11/24 15:36:
Received additional information sheet for ID to completed. Completed and faxed back to [facility].
Original Note:
Reviewed the chart notes. CM continues to be available to patient/family and is monitoring medical plan for needs at discharge.
Plan: Discharge to home with IV abx through [facility] once auth has been obtained for medication. Rui ANTHONY referral sent in [facility].
--- NOTE | 2024-09-11 11:47 | W.PN.NEPH.PH ---
Today's Communication / Plan
-
Follow BMP
Assessment/Plan
-
Assessment
Recurrent UTI
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
Mild bilateral hydronephrosis
ANNIE, probable ATN
Diabetes mellitus type 2
Hypertension
Plan
Creatinine improving to 1.5 remains nonoliguric
Antibiotics per primary team
Holding metformin and Farxiga given ANNIE
ANNIE likely on the basis of antibiotics, UTI, mild obstructive nature, contrast exposure in solitary functioning kidney setting, now probable ATN
Follow BMP
-
-
Date of Service: September 11, 2024
CC / HPI / ROS
-
Chief Complaint:
ANNIE
History of Present Illness:
ANNIE/Cr stable at 1.5
BP stable
Ertapenem for UTI
Review of Systems:
no CP/SOB
no fevers
Labs
-
Labs:
WBC 5.4 10^3/uL (4.8-10.8) 09/11/24 05:42
RBC 3.99 10^6/uL (4.70-6.10) L 09/11/24 05:42
Hgb 12.2 g/dL (13.0-18.0) L 09/11/24 05:42
Hct 37.5 % (39.0-52.0) L 09/11/24 05:42
Plt Count 105 10^3/uL (130-400) L 09/11/24 05:42
Sodium 135 mmol/L (135-145) 09/11/24 05:41
Potassium 4.7 mmol/L (3.5-5.1) 09/11/24 05:41
Chloride 106 mmol/L (98-107) 09/11/24 05:41
Carbon Dioxide 22 mmol/L (22-30) 09/11/24 05:41
BUN 22 mg/dl (9-20) H 09/11/24 05:41
Creatinine 1.5 mg/dL (0.7-1.3) H 09/11/24 05:41
eGFR 49.77 09/11/24 05:41
Glucose 137 mg/dl (70-99) H 09/11/24 05:41
Calcium 8.8 mg/dl (8.4-10.2) 09/11/24 05:41
Physical Exam
-
Vital Signs:
Vital Signs
Temp Pulse Resp BP Pulse Ox
98.8 F 75 17 127/75 94
09/11/24 07:45 09/11/24 07:45 09/11/24 07:45 09/11/24 07:45 09/11/24 07:45
Cardiovascular:: Regular rate and rhythm
Respiratory:: Bilateral: CTA
Lung Excursion:: Normal
Abdomen:: Nontender and Soft
Bowel Sounds:: Normal
Extremity Edema:: None: Bilateral:
--- NOTE | 2024-09-11 12:03 | W.PN.ID1 ---
Date of Service
Date of Service: September 11, 2024
Today's Communication
Continue Ertapenem.
Assessment / Plan
UTI vs Urethritis
DM2 uncontrolled a1c 10.8
Hemochromatosis
Functionally single kidney
- patient report notable improvement overnight
- urine culture here finalized negative - suggests either partial treatment or perhaps urethritis; patient and both adamant that no new sexual partners
- m genitalium and u ureolyticum PCR negative
- scheduled Pyridium, also has PRN morphine
- QTc over 500
- switched to ertapenem - plan 14 day course 09/06-09/19
- follow renal function
- follow clinically, stabel for dc when home IV antibiotics set up
Chief Complaint
-: UTI (cystitis) and Other
Subjective / Review of Systems
No complaints. No urinary sxs.
Vital Signs / Physical Exam
Vital Signs
Vital Signs
Temp Pulse Resp BP Pulse Ox
98.8 F 75 17 127/75 94
09/11/24 07:45 09/11/24 07:45 09/11/24 07:45 09/11/24 07:45 09/11/24 07:45
Physical Exam
Constitutional: No Acute Distress and Comfortable
Cardiovascular: Regular Rate and S1/S2
Pulmonary: Clear and Symmetric
Gastrointestinal: Soft, Non Tender, Non Distended and Normal Bowel Sounds
Genito-Urinary: Negative Suprapubic Tenderness or CVA Tenderness
Neurological: AO x 3
Lines: Port (RCW no erythema)
Objective Data
Lab Data
Lab Results
09/11/24 05:42
09/11/24 05:41
Estimated Creat Clear 60 ml/min 09/11/24 05:41
Most recent labs reviewed.
Micro Results:
09/06/24 11:54 Urine Culture - Final
Urine NO GROWTH
[2024-09-11 12:20] LABS: Glucose - Point of Care 152 mg/dl (70-99)
[2024-09-11] MEDS: INVANZ 60 MG IV (12:20)
[2024-09-11] MEDS: FLUSH (NSS) 1 FLUSH IV (13:17)
[2024-09-11] MEDS: NOVOLOG FLEXPEN-LOW RESISTANCE 1 UNITS SC (13:18)
[2024-09-11 15:35] VITALS: BP 116/70
[2024-09-11 17:44] LABS: Glucose - Point of Care 132 mg/dl (70-99)
[2024-09-11 21:34] LABS: Glucose - Point of Care 217 mg/dl (70-99)
[2024-09-11] MEDS: LANTUS 0.24 UNITS SC (21:36)
[2024-09-11] MEDS: HEPARIN SC (23:13)
[2024-09-11 23:40] VITALS: BP 130/63
[2024-09-12 07:48] VITALS: BP 141/67
[2024-09-12] MEDS: PROSCAR 5 MG PO (07:55)
[2024-09-12] MEDS: CRESTOR 20 MG PO (07:55)
[2024-09-12] MEDS: NORVASC 10 MG PO (07:55)
[2024-09-12] MEDS: Pyridium 200 MG PO ×3 (07:55→21:55)
[2024-09-12] MEDS: ZYLOPRIM 100 MG PO (07:55)
[2024-09-12] MEDS: BYSTOLIC 10 MG PO (07:55)
[2024-09-12] MEDS: FLOMAX 0.8 MG PO (07:55)
[2024-09-12] MEDS: NOVOLOG FLEXPEN 3 UNITS SC ×3 (08:16→17:40)
[2024-09-12] MEDS: NOVOLOG FLEXPEN-LOW RESISTANCE SC (08:19)
[2024-09-12 08:20] LABS: Glucose - Point of Care 147 mg/dl (70-99)
[2024-09-12] MEDS: HEPARIN SC ×3 (08:20→23:30)
--- NOTE | 2024-09-12 08:55 | W.PN.HOSP.TC ---
Today's Communication/Plan
-
Antibiotics. Discharge planning
Assessment / Plan
Assessment / Plan
Physical exam:
General: No Apparent Distress
HEENT: Normocephalic, Atraumatic and Moist Mucous Membranes
Respiratory: Clear to Auscultation; Negative Wheezes, Rales or Rhonchi
Cardiac: Regular Rhythm and S1/S2
GI: Soft, non tender and Nondistended
Musculoskeletal: No Clubbing, No Cyanosis and presence of bilateral edema
Neuro: Awake, Alert and Oriented, no neuro-deficits
Psych: Anxious
A/P:
Recurrent UTI (concern for urethritis):
Continue IV ertapenem
History ESBL in the past
ID consult and follow-up appreciated
ID requested M genitalium and U ureolyticum testing
PT OT
Plan to do outpatient IV antibiotics--> waiting for set up of antibiotics for discharge
BPH with incomplete bladder emptying:
Continue bladder scan
Urology consult appreciated
Continue finasteride
Started on Flomax
Pyridium and morphine
No significant hydronephrosis per Urology
ANNIE on CKD:
Probable component of ATN
Nephrology consult and follow-up appreciated
Unclear baseline but creatinine back to 1.4 today
There could be a component of postobstructive, medications, UTI, contrast exposure and solitary functioning kidney.
Avoid nephrotoxic
Monitor renal function
Hyponatremia:
Continue to monitor
Hypertension:
Continue home antihypertensives
Hyperlipidemia:
Continue statin
Diabetes mellitus type 2, new onset:
Insulin sliding scale
Hemoglobin A1c 10.8
Diabetic education
Insulin sliding scale
Off all oral hypoglycemics given ANNIE
Discussed with patient and will do long-acting and short acting insulin even upon discharge
Gout:
Continue allopurinol
DVT prophylaxis:
Heparin SQ
CODE STATUS:
Full code
Anticipated Discharge: 24 - 48 hours
Subjective/Interval History
-
Date of Service: September 12, 2024
Much improved overall. Afebrile
Objective Data
-
Labs:
Laboratory Results
09/12/24
08:35
Sodium Pending
Potassium Pending
Chloride Pending
Carbon Dioxide Pending
BUN Pending
Creatinine Pending
Glucose Pending
Calcium Pending
Vital Signs:
Vital Signs
Temp Pulse Resp BP Pulse Ox
98.1 F 67 18 141/67 95
09/12/24 07:48 09/12/24 07:48 09/12/24 07:48 09/12/24 07:48 09/12/24 07:48
I&O
09/11/24 09/12/24 09/13/24
06:59 06:59 06:59
Intake Total 870 / 870 1080 / 1080
Balance 870 / 870 1080 / 1080
[2024-09-12 09:28] LABS: Blood Urea Nitrogen 23 mg/dl (9-20); Carbon Dioxide 24 mmol/L (22-30); Chloride 102 mmol/L (98-107); Estimated Creatinine Clearance 64 ml/min; Glucose 175 mg/dl (70-99); Potassium 5.1 mmol/L (3.5-5.1); Sodium 137 mmol/L (135-145); eGFR 54.07
--- NOTE | 2024-09-12 10:43 | W.PN.NEPH.PH ---
Today's Communication / Plan
-
Follow BMP
Assessment/Plan
-
Assessment
Recurrent UTI
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
Mild bilateral hydronephrosis
ANNIE, probable ATN
Diabetes mellitus type 2
Hypertension
Plan
Creatinine improving to 1.4 remains nonoliguric
Antibiotics (ertepenem) per primary team
Holding metformin and Farxiga given ANNIE
ANNIE likely on the basis of antibiotics, UTI, mild obstructive nature, contrast exposure in solitary functioning kidney setting, now probable ATN
Follow BMP
-
-
Date of Service: September 12, 2024
CC / HPI / ROS
-
Chief Complaint:
ANNIE
History of Present Illness:
ANNIE/Cr stable at 1.4
BP stable
Ertapenem for UTI
Review of Systems:
no CP/SOB
no fevers
Labs
-
Labs:
WBC 5.4 10^3/uL (4.8-10.8) 09/11/24 05:42
RBC 3.99 10^6/uL (4.70-6.10) L 09/11/24 05:42
Hgb 12.2 g/dL (13.0-18.0) L 09/11/24 05:42
Hct 37.5 % (39.0-52.0) L 09/11/24 05:42
Plt Count 105 10^3/uL (130-400) L 09/11/24 05:42
Sodium 137 mmol/L (135-145) 09/12/24 08:35
Potassium 5.1 mmol/L (3.5-5.1) 09/12/24 08:35
Chloride 102 mmol/L (98-107) 09/12/24 08:35
Carbon Dioxide 24 mmol/L (22-30) 09/12/24 08:35
BUN 23 mg/dl (9-20) H 09/12/24 08:35
Creatinine 1.4 mg/dL (0.7-1.3) H 09/12/24 08:35
eGFR 54.07 09/12/24 08:35
Glucose 175 mg/dl (70-99) H 09/12/24 08:35
Calcium 9.0 mg/dl (8.4-10.2) 09/12/24 08:35
Physical Exam
-
Vital Signs:
Vital Signs
Temp Pulse Resp BP Pulse Ox
98.1 F 67 18 141/67 95
09/12/24 07:48 09/12/24 07:48 09/12/24 07:48 09/12/24 07:48 09/12/24 07:48
Cardiovascular:: Regular rate and rhythm
Respiratory:: Bilateral: CTA
Lung Excursion:: Normal
Abdomen:: Nontender and Soft
Bowel Sounds:: Normal
Extremity Edema:: None: Bilateral:
[2024-09-12 12:16] LABS: Glucose - Point of Care 321 mg/dl (70-99)
[2024-09-12] MEDS: NOVOLOG FLEXPEN-LOW RESISTANCE 4 UNITS SC (12:22)
[2024-09-12] MEDS: INVANZ 60 MG IV (12:22)
[2024-09-12 16:02] VITALS: BP 120/66
[2024-09-12 16:43] LABS: Glucose - Point of Care 173 mg/dl (70-99)
[2024-09-12] MEDS: TYLENOL 650 MG PO (17:40)
[2024-09-12] MEDS: NOVOLOG FLEXPEN-LOW RESISTANCE 1 UNITS SC (17:41)
[2024-09-12] MEDS: LANTUS 0.24 UNITS SC (22:10)
[2024-09-12 22:12] LABS: Glucose - Point of Care 189 mg/dl (70-99)
[2024-09-12 23:05] VITALS: BP 120/69
[2024-09-13] MEDS: HEPARIN SC ×3 (00:49→15:14)
[2024-09-13 07:03] VITALS: BP 139/73
[2024-09-13 07:22] LABS: Blood Urea Nitrogen 27 mg/dl (9-20); Calcium 8.6 mg/dl (8.4-10.2); Carbon Dioxide 25 mmol/L (22-30); Chloride 106 mmol/L (98-107); Estimated Creatinine Clearance 53 ml/min; Glucose 150 mg/dl (70-99); Potassium 5.1 mmol/L (3.5-5.1); Sodium 138 mmol/L (135-145); eGFR 42.83
[2024-09-13 07:47] LABS: Glucose - Point of Care 201 mg/dl (70-99)
[2024-09-13] MEDS: FLOMAX 0.8 MG PO (08:02)
[2024-09-13] MEDS: PROSCAR 5 MG PO (08:02)
[2024-09-13] MEDS: Pyridium 200 MG PO ×2 (08:02→22:56)
[2024-09-13] MEDS: BYSTOLIC 10 MG PO (08:02)
[2024-09-13] MEDS: NOVOLOG FLEXPEN-LOW RESISTANCE 2 UNITS SC (08:03)
[2024-09-13] MEDS: NORVASC 10 MG PO (08:03)
[2024-09-13] MEDS: ZYLOPRIM 100 MG PO (08:03)
[2024-09-13] MEDS: NOVOLOG FLEXPEN 3 UNITS SC ×3 (08:06→17:55)
[2024-09-13] MEDS: CRESTOR 20 MG PO (08:06)
--- NOTE | 2024-09-13 09:06 | W.PN.HOSP.TC ---
Today's Communication/Plan
-
IV antibiotics. Monitor renal function. Discharge planning.
Assessment / Plan
Assessment / Plan
Physical exam:
General: No Apparent Distress
HEENT: Normocephalic, Atraumatic and Moist Mucous Membranes
Respiratory: Clear to Auscultation; Negative Wheezes, Rales or Rhonchi
Cardiac: Regular Rhythm and S1/S2
GI: Soft, non tender and Nondistended
Musculoskeletal: No Clubbing, No Cyanosis and presence of bilateral edema
Neuro: Awake, Alert and Oriented, no neuro-deficits
Psych: Anxious
A/P:
Recurrent UTI (concern for urethritis):
Continue IV ertapenem
History ESBL in the past
ID consult and follow-up appreciated
ID requested M genitalium and U ureolyticum testing
PT OT
Plan to do outpatient IV antibiotics--> medically ready for discharge. Waiting for set up of antibiotics for discharge
BPH with incomplete bladder emptying:
Continue bladder scan
Urology consult appreciated
Continue finasteride
Started on Flomax
Pyridium and morphine
No significant hydronephrosis per Urology
ANNIE on CKD:
Probable component of ATN
Mild bump today but we will repeat in a.m.
Nephrology consult and follow-up appreciated
Unclear baseline
There could be a component of postobstructive, medications, UTI, contrast exposure and solitary functioning kidney.
Avoid nephrotoxic
Monitor renal function
Hyponatremia:
Continue to monitor
Hypertension:
Continue home antihypertensives
Hyperlipidemia:
Continue statin
Diabetes mellitus type 2, new onset:
Insulin sliding scale
Hemoglobin A1c 10.8
Diabetic education
Insulin sliding scale
Off all oral hypoglycemics given ANNIE
Discussed with patient and will do long-acting and short acting insulin even upon discharge
Gout:
Continue allopurinol
DVT prophylaxis:
Heparin SQ
CODE STATUS:
Full code
Anticipated Discharge: Within 24 hours
Subjective/Interval History
-
Date of Service: September 13, 2024
Urinary symptoms resolving. No nausea or vomiting. No chest pain or shortness of breath. Afebrile
Objective Data
-
Labs:
Laboratory Results
09/13/24
05:04
Sodium 138
Potassium 5.1
Chloride 106
Carbon Dioxide 25
BUN 27 H
Creatinine 1.7 H
Glucose 150 H
Calcium 8.6
Vital Signs:
Vital Signs
Temp Pulse Resp BP Pulse Ox
98.8 F 74 18 139/73 94
09/13/24 07:03 09/13/24 08:03 09/13/24 07:03 09/13/24 08:03 09/13/24 07:03
I&O
09/12/24 09/13/24 09/14/24
06:59 06:59 06:59
Intake Total 1080 / 1080 1220 / 1220
Balance 1080 / 1080 1220 / 1220
--- NOTE | 2024-09-13 11:35 | W.PN.NEPH.PH ---
Today's Communication / Plan
-
Follow BMP
Assessment/Plan
-
Assessment
Recurrent UTI
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
Mild bilateral hydronephrosis
ANNIE, probable ATN
Diabetes mellitus type 2
Hypertension
Plan
Creatinine up to 1.7
Antibiotics (ertepenem) per primary team
Holding metformin and Farxiga given ANNIE
ANNIE likely on the basis of antibiotics, UTI, mild obstructive nature, contrast exposure in solitary functioning kidney setting, now probable ATN
Follow BMP
-
-
Date of Service: September 13, 2024
CC / HPI / ROS
-
Chief Complaint:
ANNIE
History of Present Illness:
ANNIE/Cr at 1.7
BP stable
Ertapenem for UTI
Review of Systems:
no CP/SOB
no fevers
Labs
-
Labs:
WBC 5.4 10^3/uL (4.8-10.8) 09/11/24 05:42
RBC 3.99 10^6/uL (4.70-6.10) L 09/11/24 05:42
Hgb 12.2 g/dL (13.0-18.0) L 09/11/24 05:42
Hct 37.5 % (39.0-52.0) L 09/11/24 05:42
Plt Count 105 10^3/uL (130-400) L 09/11/24 05:42
Sodium 138 mmol/L (135-145) 09/13/24 05:04
Potassium 5.1 mmol/L (3.5-5.1) 09/13/24 05:04
Chloride 106 mmol/L (98-107) 09/13/24 05:04
Carbon Dioxide 25 mmol/L (22-30) 09/13/24 05:04
BUN 27 mg/dl (9-20) H 09/13/24 05:04
Creatinine 1.7 mg/dL (0.7-1.3) H 09/13/24 05:04
eGFR 42.83 09/13/24 05:04
Glucose 150 mg/dl (70-99) H 09/13/24 05:04
Calcium 8.6 mg/dl (8.4-10.2) 09/13/24 05:04
Physical Exam
-
Vital Signs:
Vital Signs
Temp Pulse Resp BP Pulse Ox
98.8 F 74 18 139/73 94
09/13/24 07:03 09/13/24 08:03 09/13/24 07:03 09/13/24 08:03 09/13/24 07:03
Cardiovascular:: Regular rate and rhythm
Respiratory:: Bilateral: CTA
Lung Excursion:: Normal
Abdomen:: Nontender and Soft
Bowel Sounds:: Normal
Extremity Edema:: None: Bilateral:
[2024-09-13] MEDS: INVANZ 60 MG IV (12:14)
[2024-09-13 12:25] LABS: Glucose - Point of Care 172 mg/dl (70-99)
[2024-09-13] MEDS: NOVOLOG FLEXPEN-LOW RESISTANCE 1 UNITS SC ×2 (12:27→17:54)
[2024-09-13 15:45] VITALS: BP 110/62
[2024-09-13 17:12] LABS: Glucose - Point of Care 186 mg/dl (70-99)
[2024-09-13] MEDS: Pyridium PO (17:36)
[2024-09-13 21:29] LABS: Glucose - Point of Care 195 mg/dl (70-99)
[2024-09-13] MEDS: LANTUS 0.24 UNITS SC (22:56)
[2024-09-13 23:13] VITALS: BP 138/71
[2024-09-14 07:47] LABS: Glucose - Point of Care 141 mg/dl (70-99)
[2024-09-14 07:56] VITALS: BP 135/75
[2024-09-14] MEDS: NOVOLOG FLEXPEN-LOW RESISTANCE SC (08:09)
[2024-09-14] MEDS: BYSTOLIC 10 MG PO (08:10)
[2024-09-14] MEDS: NORVASC 10 MG PO (08:11)
[2024-09-14] MEDS: PROSCAR 5 MG PO (08:11)
[2024-09-14] MEDS: ZYLOPRIM 100 MG PO (08:11)
[2024-09-14] MEDS: FLOMAX 0.8 MG PO (08:11)
[2024-09-14] MEDS: CRESTOR 20 MG PO (08:11)
[2024-09-14] MEDS: Pyridium 200 MG PO (08:11)
[2024-09-14] MEDS: NOVOLOG FLEXPEN 3 UNITS SC (08:14)
[2024-09-14] MEDS: HEPARIN SC ×2 (08:14→15:05)
--- NOTE | 2024-09-14 08:14 | PN.DE.MGMTRT ---
Insulin Management
- -
09/14/2024: Diabetes Management Follow up
Patient admitted with c/o persistent urinary urgency and frequency due to UTI and Bilateral hydronephrosis with PMH: Benign HTN, HLD, CKD II, Gout and T2DM, initially first dx in 2019 with an A1C of 9% and started on Jardiance and Metformin at the
time.
Pt reports that he stopped taking his diabetes medication 3 years ago when his A1C improved to 6% and had been exercising and watching his diet which resulted in significant weight loss. He states he had a glucose monitor but does not know where it
is.
Reports he recently has not been compliant with a diabetic diet, has not been exercising and has gained a lot of weight. A1C of 10.8%, Cr 1.6, eGFR 46.06.
Discussed insulin therapy with basal/bolus regimen, however, pt declined stating that he would like to try the regimen that included metformin and Jardiance as he had taken on initial dx 5 years ago. Discussed current A1C and Emphasized importance
of optimal glucose control to reduce risk of diabetes related complications. Pt was agreeable to basal/bolus regimen.
Pt awake, alert, oriented, sitting up in bed, offers no complaints, able to discuss diabetes care plan.
09/10 Farxiga, Metformin and Glipizide were stopped and started on AC NovoLog.
3/2 premeal range 172 to 201, requiring 1-2 additional units of insulin with meals. FBG 141(V), 141 POC. Cr 1.7, eGFR 42.83.
Will increase AC NovoLog to 5 units. Cont Lantus 24 units @ hs and low corrective insulin AC
Pt states he is comfortable with insulin self administration, reports that Nursing staff have been reinforcing insulin administration and have patient self inject. Will cont to follow and make further dose adjustments if necessary.
Pt was seen by the Diabetes RN Educator 09/08 for monitor and insulin instructions.
Diabetes History
- -
Type of Diabetes: 2 requiring insulin
Pre-Admission Diabetes Regimen
Lab Results
Hemoglobin A1c 10.8 % (4.0-5.6) H 09/07/24 05:25
Insulin Pump Settings
IP Diabetes Regimen
09/13/24 09/13/24 09/13/24
12:24 17:10 21:27
POC Glucose 172 H 186 H 195 H
09/14/24
07:45
POC Glucose 141 H
Meal type: Lunch
Meal type: Breakfast
Amount consumed: 100%
Amount consumed: 100%
Patient Education
[2024-09-14 09:15] LABS: Blood Urea Nitrogen 32 mg/dl (9-20); Calcium 9.1 mg/dl (8.4-10.2); Carbon Dioxide 26 mmol/L (22-30); Chloride 104 mmol/L (98-107); Estimated Creatinine Clearance 60 ml/min; Glucose 154 mg/dl (70-99); Potassium 5.2 mmol/L (3.5-5.1); Sodium 137 mmol/L (135-145); eGFR 49.77
--- NOTE | 2024-09-14 09:26 | W.PN.HOSP.TC ---
Today's Communication/Plan
-
CM for home infusion
Assessment / Plan
Assessment / Plan
69yo M with PMHX of colovesicular fistula repair, sigmoidectomy, HTN, gout, urinary bladder stone, HLD, DM, CKD stage 3a, hemochromatosis with q3m phlebotomy via R chemo port, came with dysuria, found ESBL UTI. Patient recently completed levaquin
as outpatient without improvement in symptoms. CT showed acute cystitis, possible pyelonephritis. Urology evaluated, started tamsulosin. ID recommended ertapenem till 09/19/24. Pending CM to establish outpatient Abx
A/P:
#Complicated UTI with R pyelonephritis
#L atrophic kidney
#L renal artery stenosis
#BPH
Ertapenem as per ID
Urology followed
#possible hepatic cirrhosis
ouitpatient GI
avoid alcohol
HepC neg as of 2022
#Mild hyperkalemia
#ANNIE on admission with CKD stage 3a
Probable ATN
Stop Metformin and Farxiga
follow electrolytes
Renal diet
Nephro follows
#b/l avascular necrosis of femoral head
#DJD
Outpatient ortho
pain mgmt
PT/OT
#DM type 2 with nephropathy
Insulin basal, bolus, sliding scale, accucghekcs, DM diet
#HLD
#Essential HTN
#Gout
#Hemochromatosis
cont home meds
DVT ppx hep
Full code
I have spent at least 37min reviewing chart, test results and providing direct patient care
Anticipated Discharge: Within 24 hours
Subjective/Interval History
-
Date of Service: September 14, 2024
Objective Data
-
Labs:
Laboratory Results
09/14/24 09/14/24
07:57 14:00
Sodium 137
Potassium 5.2 H Pending
Chloride 104
Carbon Dioxide 26
BUN 32 H
Creatinine 1.5 H
Glucose 154 H
Calcium 9.1
Vital Signs:
Vital Signs
Temp Pulse Resp BP Pulse Ox
98.1 F 67 18 135/75 95
09/14/24 07:56 09/14/24 07:56 09/14/24 07:56 09/14/24 07:56 09/14/24 07:56
I&O
09/13/24 09/14/24 09/15/24
06:59 06:59 06:59
Intake Total 1220 / 1220 660 / 660
Balance 1220 / 1220 660 / 660
Review of Systems
-
History Source: Patient
All other systems: Reviewed and negative
Physical Exam
-
General: No Apparent Distress
HEENT: Normocephalic
Respiratory: Clear to Auscultation
Cardiac: Regular Rhythm
GI: Soft, Nontender and Nondistended
Neuro: Awake, Alert, Oriented and AO x 3
Psych: Calm
[2024-09-14 11:56] LABS: Glucose - Point of Care 216 mg/dl (70-99)
[2024-09-14] MEDS: NOVOLOG FLEXPEN-LOW RESISTANCE 2 UNITS SC (12:11)
[2024-09-14] MEDS: INVANZ 60 MG IV (12:12)
[2024-09-14] MEDS: NOVOLOG FLEXPEN 5 UNITS SC ×2 (12:12→17:17)
--- NOTE | 2024-09-14 12:17 | W.PN.NEPH.PH ---
Today's Communication / Plan
-
follow BMP
Assessment/Plan
-
Assessment
Recurrent UTI
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
Mild bilateral hydronephrosis
ANNIE, probable ATN
Diabetes mellitus type 2
Hypertension
Plan:
Antibiotics (ertepenem) per primary team
No metformin and Farxiga given ANNIE
ANNIE likely on the basis of antibiotics, UTI, mild obstructive nature, contrast exposure in solitary functioning kidney setting, now probable ATN
Follow BMP
observe K
-
-
Date of Service: September 14, 2024
CC / HPI / ROS
-
Chief Complaint:
ANNIE
History of Present Illness:
ANNIE/Cr at 1.5 stable
K up to 5.2
BP stable
Ertapenem for UTI
Review of Systems:
no CP/SOB
no fevers
Labs
-
Labs:
WBC 5.4 10^3/uL (4.8-10.8) 09/11/24 05:42
RBC 3.99 10^6/uL (4.70-6.10) L 09/11/24 05:42
Hgb 12.2 g/dL (13.0-18.0) L 09/11/24 05:42
Hct 37.5 % (39.0-52.0) L 09/11/24 05:42
Plt Count 105 10^3/uL (130-400) L 09/11/24 05:42
Sodium 137 mmol/L (135-145) 09/14/24 07:57
Chloride 104 mmol/L (98-107) 09/14/24 07:57
Carbon Dioxide 26 mmol/L (22-30) 09/14/24 07:57
BUN 32 mg/dl (9-20) H 09/14/24 07:57
Creatinine 1.5 mg/dL (0.7-1.3) H 09/14/24 07:57
eGFR 49.77 09/14/24 07:57
Glucose 154 mg/dl (70-99) H 09/14/24 07:57
Calcium 9.1 mg/dl (8.4-10.2) 09/14/24 07:57
Physical Exam
-
Vital Signs:
Vital Signs
Temp Pulse Resp BP Pulse Ox
98.1 F 67 18 135/75 95
09/14/24 07:56 09/14/24 07:56 09/14/24 07:56 09/14/24 07:56 09/14/24 07:56
Cardiovascular:: Regular rate and rhythm
Respiratory:: Bilateral: Coarse
Lung Excursion:: Normal
Abdomen:: Nontender and Soft
Bowel Sounds:: Normal
Extremity Edema:: None: Bilateral:
[2024-09-14 14:11] LABS: Potassium 5.3 mmol/L (3.5-5.1)
[2024-09-14] MEDS: LOKELMA 5 GRAM PO (14:30)
--- NOTE | 2024-09-14 14:49 | CM ---
Addendum entered by Rosalie Goldstein RN 09/14/24 16:11:
IMM reviewed.
Original Note:
Reviewed the chart notes and spoke with the patient at the bedside. [facility] still waiting on insurance auth. Patient updated. CM continues to be available to patient/family and is monitoring medical plan for needs at discharge.
Plan: Discharge to home with IV abx and line management provided by [facility].
--- NOTE | 2024-09-14 15:32 | W.PN.ID1 ---
Date of Service
Date of Service: September 14, 2024
Today's Communication
- c/w ertapenem - plan 14 day course 09/06-09/19
- follow renal function
- follow clinically, stable for dc when home IV antibiotics set up
Assessment / Plan
UTI vs Urethritis
DM2 uncontrolled a1c 10.8
Hemochromatosis
Functionally single kidney
- urine culture here finalized negative
- QTc over 500
- c/w ertapenem - plan 14 day course 09/06-09/19
- follow renal function
- follow clinically, stable for dc when home IV antibiotics set up
Chief Complaint
-: UTI (cystitis) and Other
Subjective / Review of Systems
afebrile
bp stable
Vital Signs / Physical Exam
Vital Signs
Vital Signs
Temp Pulse Resp BP Pulse Ox
98.1 F 67 18 135/75 95
09/14/24 07:56 09/14/24 07:56 09/14/24 07:56 09/14/24 07:56 09/14/24 07:56
Physical Exam
Constitutional: No Acute Distress
Cardiovascular: Regular Rate
Pulmonary: Symmetric
Gastrointestinal: Non Distended
Neurological: Negative Awake
Objective Data
Lab Data
Lab Results
09/11/24 05:42
09/14/24 13:44
Estimated Creat Clear 60 ml/min 09/14/24 07:57
Most recent labs reviewed.
Micro Results:
09/06/24 11:54 Urine Culture - Final
Urine NO GROWTH
[2024-09-14 15:55] VITALS: BP 148/71
[2024-09-14 17:02] LABS: Glucose - Point of Care 185 mg/dl (70-99)
[2024-09-14] MEDS: NOVOLOG FLEXPEN-LOW RESISTANCE 1 UNITS SC (17:17)
[2024-09-14 21:37] LABS: Glucose - Point of Care 161 mg/dl (70-99)
[2024-09-14] MEDS: LANTUS 0.24 UNITS SC (21:48)
[2024-09-14 23:31] VITALS: BP 120/69
[2024-09-15] MEDS: HEPARIN SC ×4 (01:31→22:47)
[2024-09-15 05:25] LABS: Blood Urea Nitrogen 30 mg/dl (9-20); Calcium 9.1 mg/dl (8.4-10.2); Carbon Dioxide 27 mmol/L (22-30); Chloride 104 mmol/L (98-107); Estimated Creatinine Clearance 64 ml/min; Glucose 123 mg/dl (70-99); Potassium 4.8 mmol/L (3.5-5.1); Sodium 138 mmol/L (135-145); eGFR 54.07
--- NOTE | 2024-09-15 07:20 | PN.DE.MGMTRT ---
Insulin Management
- -
09/15/2024: Diabetes Management Follow up
Patient admitted with c/o persistent urinary urgency and frequency due to UTI and Bilateral hydronephrosis with PMH: Benign HTN, HLD, CKD II, Gout and T2DM, initially first dx in 2019 with an A1C of 9% and started on Jardiance and Metformin at the
time.
Pt reports that he stopped taking his diabetes medication 3 years ago when his A1C improved to 6% and had been exercising and watching his diet which resulted in significant weight loss. He states he had a glucose monitor but does not know where it
is.
Reports he recently has not been compliant with a diabetic diet, has not been exercising and has gained a lot of weight. A1C of 10.8%, Cr 1.6, eGFR 46.06.
Discussed insulin therapy with basal/bolus regimen, however, pt declined stating that he would like to try the regimen that included metformin and Jardiance as he had taken on initial dx 5 years ago. Discussed current A1C and Emphasized importance
of optimal glucose control to reduce risk of diabetes related complications. Pt was agreeable to basal/bolus regimen.
Pt awake, alert, oriented, sitting up in bed, offers no complaints, able to discuss diabetes care plan.
09/10 Farxiga, Metformin and Glipizide were stopped and started on AC NovoLog.
3/3 premeal range 141 to 216, requiring 1-2 additional units of insulin with meals.
/ FBG 123(V), Cr 1.4, eGFR 44.07.
AC NovoLog increased to 5 units 3/3. Will continue 5 units AC with Lantus 24 units @ hs and low corrective insulin AC
Pt states he is comfortable with insulin self administration, reports that Nursing staff have been reinforcing insulin administration and have patient self inject. Will cont to follow and make further dose adjustments if necessary.
Pt was seen by the Diabetes RN Educator 09/08 for monitor and insulin instructions.
Diabetes History
- -
Type of Diabetes: 2 requiring insulin
Pre-Admission Diabetes Regimen
09/14/24 09/15/24
07:57 04:09
Creatinine 1.5 H 1.4 H
Lab Results
Hemoglobin A1c 10.8 % (4.0-5.6) H 09/07/24 05:25
Insulin Pump Settings
IP Diabetes Regimen
09/14/24 09/14/24 09/14/24
07:45 07:57 11:55
Glucose 154 H
POC Glucose 141 H 216 H
09/14/24 09/14/24 09/15/24
17:01 21:34 04:09
Glucose 123 H
POC Glucose 185 H 161 H
Meal type: Lunch
Meal type: Breakfast
Amount consumed: 100%
Amount consumed: 100%
Patient Education
[2024-09-15 07:44] LABS: Glucose - Point of Care 126 mg/dl (70-99)
[2024-09-15] MEDS: NOVOLOG FLEXPEN-LOW RESISTANCE SC ×3 (07:51→17:33)
[2024-09-15 07:57] VITALS: BP 115/58
[2024-09-15] MEDS: BYSTOLIC 10 MG PO (08:25)
[2024-09-15] MEDS: ZYLOPRIM 100 MG PO (08:26)
[2024-09-15] MEDS: NORVASC 10 MG PO (08:26)
[2024-09-15] MEDS: FLOMAX 0.8 MG PO (08:26)
[2024-09-15] MEDS: PROSCAR 5 MG PO (08:26)
[2024-09-15] MEDS: CRESTOR 20 MG PO (08:26)
[2024-09-15] MEDS: NOVOLOG FLEXPEN 5 UNITS SC ×3 (08:27→17:33)
[2024-09-15] MEDS: INVANZ 60 MG IV (11:57)
--- NOTE | 2024-09-15 12:27 | W.PN.HOSP.TC ---
Today's Communication/Plan
-
remains medically stable for d/c if CM established outpatient Abx - CM woring on that as per previous conversations
Assessment / Plan
Assessment / Plan
69yo M with PMHX of colovesicular fistula repair, sigmoidectomy, HTN, gout, urinary bladder stone, HLD, DM, CKD stage 3a, hemochromatosis with q3m phlebotomy via R chemo port, came with dysuria, found ESBL UTI. Patient recently completed levaquin
as outpatient without improvement in symptoms. CT showed acute cystitis, possible pyelonephritis. Urology evaluated, started tamsulosin. ID recommended ertapenem till 09/19/24. Pending CM to establish outpatient Abx, otherwise complete course while
inpatient
A/P:
#Complicated UTI with R pyelonephritis
#L atrophic kidney
#L renal artery stenosis
#BPH
Ertapenem as per ID - till 09/20/23
Urology followed
#possible hepatic cirrhosis
ouitpatient GI
avoid alcohol
HepC neg as of 2022
#Mild hyperkalemia
#ANNIE on admission with CKD stage 3a
Probable ATN
Stop Metformin and Farxiga
follow electrolytes
Renal diet
Nephro follows
#b/l avascular necrosis of femoral head
#DJD
Outpatient ortho
pain mgmt
PT/OT
#DM type 2 with nephropathy
Insulin basal, bolus, sliding scale, AccuCheck, DM diet
#HLD
#Essential HTN
#Gout
#Hemochromatosis
cont home meds
DVT ppx hep
Full code
I have spent at least 37min reviewing chart, test results and providing direct patient care
Anticipated Discharge: 24 - 48 hours
Subjective/Interval History
-
Date of Service: September 15, 2024
Objective Data
-
Labs:
Laboratory Results
09/15/24
04:09
Sodium 138
Potassium 4.8
Chloride 104
Carbon Dioxide 27
BUN 30 H
Creatinine 1.4 H
Glucose 123 H
Calcium 9.1
Vital Signs:
Vital Signs
Temp Pulse Resp BP Pulse Ox
98.1 F 72 18 115/58 93
09/15/24 07:57 09/15/24 07:57 09/15/24 07:57 09/15/24 07:57 09/15/24 07:57
I&O
09/14/24 09/15/24 09/16/24
06:59 06:59 06:59
Intake Total 660 / 660 960 / 960
Balance 660 / 660 960 / 960
Review of Systems
-
History Source: Patient
All other systems: Reviewed and negative
Physical Exam
-
General: No Apparent Distress
HEENT: Normocephalic
Cardiac: Regular Rhythm
GI: Soft, Nontender and Nondistended
Musculoskeletal: No Clubbing, No Cyanosis and No Edema
Neuro: Awake
Psych: Calm
[2024-09-15 12:45] LABS: Glucose - Point of Care 143 mg/dl (70-99)
--- NOTE | 2024-09-15 14:25 | W.PN.ID1 ---
Date of Service
Date of Service: September 15, 2024
Today's Communication
- c/w ertapenem - plan 14 day course 09/06-09/19
- follow renal function
- follow clinically, stable for dc when home IV antibiotics set up; alternatively may complete course of therapy here
Assessment / Plan
UTI vs Urethritis
DM2 uncontrolled a1c 10.8
Hemochromatosis
Functionally single kidney
- urine culture here finalized negative
- QTc over 500
- c/w ertapenem - plan 14 day course 09/06-09/19
- follow renal function
- follow clinically, stable for dc when home IV antibiotics set up; alternatively may complete course of therapy here
Chief Complaint
-: UTI (cystitis) and Other
Subjective / Review of Systems
afebrile
bp stable
no events overnight
Vital Signs / Physical Exam
Vital Signs
Vital Signs
Temp Pulse Resp BP Pulse Ox
98.1 F 72 18 115/58 93
09/15/24 07:57 09/15/24 07:57 09/15/24 07:57 09/15/24 07:57 09/15/24 07:57
Physical Exam
Constitutional: No Acute Distress
Cardiovascular: Regular Rate
Pulmonary: Symmetric
Gastrointestinal: Non Distended
Neurological: Negative Awake
Objective Data
Lab Data
Lab Results
09/11/24 05:42
09/15/24 04:09
Estimated Creat Clear 64 ml/min 09/15/24 04:09
Most recent labs reviewed.
Micro Results:
09/06/24 11:54 Urine Culture - Final
Urine NO GROWTH
[2024-09-15 15:05] VITALS: BP 124/68
--- NOTE | 2024-09-15 15:14 | CM ---
Addendum entered by Rosalie Goldstein RN 09/15/24 15:54:
CM spoke with Nahomy from infusion center. The can start the patient . Attending, patient and spouse informed.
Original Note:
Reviewed the chart notes and spoke with [facility] Liaison Alice. Per Alice, insurance has denied the home IV abx. CM spoke with the patient's spouse who spoke with the insurance. Per insurance, patient can go to outpatient infusion center and
it would be covered. IV script and face sheet faxed to [facility]. CM continues to be available to patient/family and is monitoring medical plan for needs at discharge.
Plan: Discharge to home with outpatient infusion services at .
--- NOTE | 2024-09-15 15:59 | W.PN.NEPH.PH ---
Today's Communication / Plan
-
d/c plan
Assessment/Plan
-
Assessment
Recurrent UTI
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
Mild bilateral hydronephrosis
ANNIE, probable ATN
Diabetes mellitus type 2
Hypertension
Plan:
Antibiotics (ertepenem) per primary team
No metformin and Farxiga given ANNIE
ANNIE likely on the basis of antibiotics, UTI, mild obstructive nature, contrast exposure in solitary functioning kidney setting, probable ATN
cr is better at 1.4
Follow BMP
he has nephro out side of hospital
do not resume Farxiga at d/c-d/w pt
-
-
Date of Service: September 15, 2024
CC / HPI / ROS
-
Chief Complaint:
ANNIE
History of Present Illness:
ANNIE/Cr at 1.4 stable
K better at 4.8
BP stable
Ertapenem for UTI
Review of Systems:
no CP/SOB
no fevers
improved dysuria
Labs
-
Labs:
WBC 5.4 10^3/uL (4.8-10.8) 09/11/24 05:42
RBC 3.99 10^6/uL (4.70-6.10) L 09/11/24 05:42
Hgb 12.2 g/dL (13.0-18.0) L 09/11/24 05:42
Hct 37.5 % (39.0-52.0) L 09/11/24 05:42
Plt Count 105 10^3/uL (130-400) L 09/11/24 05:42
Sodium 138 mmol/L (135-145) 09/15/24 04:09
Potassium 4.8 mmol/L (3.5-5.1) 09/15/24 04:09
Chloride 104 mmol/L (98-107) 09/15/24 04:09
Carbon Dioxide 27 mmol/L (22-30) 09/15/24 04:09
BUN 30 mg/dl (9-20) H 09/15/24 04:09
Creatinine 1.4 mg/dL (0.7-1.3) H 09/15/24 04:09
eGFR 54.07 09/15/24 04:09
Glucose 123 mg/dl (70-99) H 09/15/24 04:09
Calcium 9.1 mg/dl (8.4-10.2) 09/15/24 04:09
Physical Exam
-
Vital Signs:
Vital Signs
Temp Pulse Resp BP Pulse Ox
98.1 F 72 18 115/58 93
09/15/24 07:57 09/15/24 07:57 09/15/24 07:57 09/15/24 07:57 09/15/24 07:57
Cardiovascular:: Regular rate and rhythm
Respiratory:: Bilateral: CTA
Lung Excursion:: Normal
Abdomen:: Nontender and Soft
Bowel Sounds:: Normal
Extremity Edema:: None: Bilateral:
Ware Catheter: No
[2024-09-15 17:32] LABS: Glucose - Point of Care 118 mg/dl (70-99)
[2024-09-15 21:09] LABS: Glucose - Point of Care 177 mg/dl (70-99)
[2024-09-15] MEDS: LANTUS 0.24 UNITS SC (21:54)
[2024-09-15 23:40] VITALS: BP 109/57
--- NOTE | 2024-09-16 07:14 | PN.DE.MGMTRT ---
Insulin Management
- -
09/16/2024: Diabetes Management Follow up
Patient admitted with c/o persistent urinary urgency and frequency due to UTI and Bilateral hydronephrosis with PMH: Benign HTN, HLD, CKD II, Gout and T2DM, initially first dx in 2019 with an A1C of 9% and started on Jardiance and Metformin at the
time.
Pt reports that he stopped taking his diabetes medication 3 years ago when his A1C improved to 6% and had been exercising and watching his diet which resulted in significant weight loss. He states he had a glucose monitor but does not know where it
is.
Pt awake, alert, oriented, sitting up in bed, offers no complaints, able to discuss diabetes care plan.
3/ premeal range 118 to 177, requiring no corrective insulin with meals.
/ FBG 128. Will continue 5 units AC with Lantus 24 units @ hs and low corrective insulin AC
Pt states he is comfortable with insulin self administration, reports that Nursing staff have been reinforcing insulin administration and have patient self inject. Will cont to follow and make further dose adjustments if necessary.
Pt was seen by the Diabetes RN Educator 09/08 for monitor and insulin instructions.
Diabetes History
- -
Type of Diabetes: 2 requiring insulin
Pre-Admission Diabetes Regimen
Lab Results
Hemoglobin A1c 10.8 % (4.0-5.6) H 09/07/24 05:25
Insulin Pump Settings
IP Diabetes Regimen
09/15/24 09/15/24 09/15/24
07:42 12:44 17:31
POC Glucose 126 H 143 H 118 H
09/15/24
21:07
POC Glucose 177 H
Meal type: Lunch
Meal type: Breakfast
Amount consumed: 100%
Amount consumed: 100%
Patient Education
[2024-09-16 07:26] LABS: Glucose - Point of Care 128 mg/dl (70-99)
[2024-09-16] MEDS: NOVOLOG FLEXPEN-LOW RESISTANCE SC (07:33)
[2024-09-16 08:00] VITALS: BP 118/65
[2024-09-16] MEDS: NOVOLOG FLEXPEN 5 UNITS SC ×2 (08:26→12:30)
[2024-09-16] MEDS: ZYLOPRIM 100 MG PO (08:27)
[2024-09-16] MEDS: PROSCAR 5 MG PO (08:27)
[2024-09-16] MEDS: NORVASC 10 MG PO (08:27)
[2024-09-16] MEDS: BYSTOLIC 10 MG PO (08:27)
[2024-09-16] MEDS: FLOMAX 0.8 MG PO (08:27)
[2024-09-16] MEDS: CRESTOR 20 MG PO (08:27)
[2024-09-16] MEDS: HEPARIN SC (08:30)
--- NOTE | 2024-09-16 12:03 | W.PN.NEPH.PH ---
Today's Communication / Plan
-
Stable for discharge from renal perspective
Assessment/Plan
-
Assessment
Recurrent UTI
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
Mild bilateral hydronephrosis
ANNIE, probable ATN
Diabetes mellitus type 2
Hypertension
Plan:
Antibiotics (ertepenem) per primary team
No metformin and Farxiga given ANNIE
ANNIE likely on the basis of antibiotics, UTI, mild obstructive nature, contrast exposure in solitary functioning kidney setting, probable ATN
cr is better at 1.4
Follow BMP
he has nephro out side of hospital
do not resume Farxiga at d/c-d/w pt
Stable for discharge
-
-
Date of Service: September 16, 2024
CC / HPI / ROS
-
Chief Complaint:
ANNIE
History of Present Illness:
ANNIE/Cr at 1.4 stable
K better at 4.8
BP stable
Ertapenem for UTI
Review of Systems:
no CP/SOB
no fevers
improved dysuria
Labs
-
Labs:
WBC 5.4 10^3/uL (4.8-10.8) 09/11/24 05:42
RBC 3.99 10^6/uL (4.70-6.10) L 09/11/24 05:42
Hgb 12.2 g/dL (13.0-18.0) L 09/11/24 05:42
Hct 37.5 % (39.0-52.0) L 09/11/24 05:42
Plt Count 105 10^3/uL (130-400) L 09/11/24 05:42
Sodium 138 mmol/L (135-145) 09/15/24 04:09
Potassium 4.8 mmol/L (3.5-5.1) 09/15/24 04:09
Chloride 104 mmol/L (98-107) 09/15/24 04:09
Carbon Dioxide 27 mmol/L (22-30) 09/15/24 04:09
BUN 30 mg/dl (9-20) H 09/15/24 04:09
Creatinine 1.4 mg/dL (0.7-1.3) H 09/15/24 04:09
eGFR 54.07 09/15/24 04:09
Glucose 123 mg/dl (70-99) H 09/15/24 04:09
Calcium 9.1 mg/dl (8.4-10.2) 09/15/24 04:09
Physical Exam
-
Vital Signs:
Vital Signs
Temp Pulse Resp BP Pulse Ox
98.5 F 68 16 118/65 93
09/16/24 08:00 09/16/24 08:27 09/16/24 08:00 09/16/24 08:27 09/16/24 09:55
Cardiovascular:: Regular rate and rhythm
Respiratory:: Bilateral: CTA
Lung Excursion:: Normal
Abdomen:: Nontender and Soft
Bowel Sounds:: Normal
Extremity Edema:: None: Bilateral:
Ware Catheter: No
[2024-09-16 12:10] LABS: Glucose - Point of Care 156 mg/dl (70-99)
--- NOTE | 2024-09-16 12:14 | W.PN.HOSP.TC ---
Today's Communication/Plan
-
Pending establishing outpatient abx
Assessment / Plan
Assessment / Plan
69yo M with PMHX of colovesicular fistula repair, sigmoidectomy, HTN, gout, urinary bladder stone, HLD, DM, CKD stage 3a, hemochromatosis with q3m phlebotomy via R chemo port, came with dysuria, found ESBL UTI. Patient recently completed levaquin
as outpatient without improvement in symptoms. CT showed acute cystitis, possible pyelonephritis. Urology evaluated, started tamsulosin. ID recommended ertapenem till 09/19/24. Pending CM to establish outpatient Abx in infusion center, otherwise
complete course while inpatient
A/P:
#Complicated UTI with R pyelonephritis
#L atrophic kidney
#L renal artery stenosis
#BPH
Ertapenem as per ID - till 09/20/23
Urology followed
#possible hepatic cirrhosis
ouitpatient GI
avoid alcohol
HepC neg as of 2022
#Mild hyperkalemia
#ANNIE on admission with CKD stage 3a
Probable ATN
Stop Metformin and Farxiga
follow electrolytes
Renal diet
Nephro follows
#b/l avascular necrosis of femoral head
#DJD
Outpatient ortho
pain mgmt
PT/OT
#DM type 2 with nephropathy
Insulin basal, bolus, sliding scale, AccuCheck, DM diet
#HLD
#Essential HTN
#Gout
#Hemochromatosis
cont home meds
DVT ppx hep
Full code
I have spent at least 37min reviewing chart, test results and providing direct patient care
Anticipated Discharge: Within 24 hours
Subjective/Interval History
-
Date of Service: September 16, 2024
Objective Data
-
Vital Signs:
Vital Signs
Temp Pulse Resp BP Pulse Ox
98.5 F 68 16 118/65 93
09/16/24 08:00 09/16/24 08:27 09/16/24 08:00 09/16/24 08:27 09/16/24 09:55
I&O
09/15/24 09/16/24 09/17/24
06:59 06:59 06:59
Intake Total 960 / 960 1500 / 1500
Balance 960 / 960 1500 / 1500
Review of Systems
-
History Source: Patient
All other systems: Reviewed and negative
Physical Exam
-
General: No Apparent Distress
HEENT: Normocephalic
Cardiac: Regular Rhythm
GI: Soft, Nontender and Nondistended
Genito-urinary: No Costovertebral Tender
Musculoskeletal: No Clubbing, No Cyanosis and No Edema
Neuro: Awake, Alert, Oriented and AO x 3
Psych: Calm
[2024-09-16] MEDS: INVANZ 60 MG IV (12:29)
[2024-09-16] MEDS: NOVOLOG FLEXPEN-LOW RESISTANCE 1 UNITS SC (12:30)
--- NOTE | 2024-09-16 13:35 | W.DCSUMMARY ---
Discharge Summary
Discharge Data
Date of Admission: 09/06/24
Date of Discharge: 09/16/24
-
Pending Results: No
Hospital Course
69yo M with PMHX of colovesicular fistula repair, sigmoidectomy, HTN, gout, urinary bladder stone, HLD, DM, CKD stage 3a, hemochromatosis with q3m phlebotomy via R chemo port, came with dysuria, found ESBL UTI. Patient recently completed levaquin
as outpatient without improvement in symptoms. CT showed acute cystitis, possible pyelonephritis. Urology evaluated, started tamsulosin. ID recommended ertapenem till 09/19/24. CM established outpatient Abx in infusion center, CM will call with time
to the patient. DM assisted in new insulin regimen. Patient comfortable with self administering insulin. Medically stabe for d/c
I have spent at least 37min reviewing chart, test results and providing direct patient care
Patient was managed for:
#Complicated UTI with R pyelonephritis
#L atrophic kidney
#L renal artery stenosis
#BPH
#possible hepatic cirrhosis
#Mild hyperkalemia
#ANNIE on admission with CKD stage 3a
#b/l avascular necrosis of femoral head
#DJD
#DM type 2 with nephropathy
#HLD
#Essential HTN
#Gout
#Hemochromatosis
Discharge Plan
-
Patient Disposition: Home (Routine Discharge)
Discharge Diagnosis/Procedures: UTI
Diet: Diabetic, Carb Controlled
Activity: As tolerated
Activity Restrictions/Additional Instructions:
Wound Care Instructions
buttocks:Sits baths prn loose stool
apply zinc oxide bid and prn soilage.
wear 100% cotton underwear
ultrasound manager will call you with time for infusions for antibiotic
Referrals:
Cherry Prince MD [Active] - in three to four weeks (signs of cirrhosis on CT)
Emmanuel Munroe MD [Active] - in one to two months (b/l avascular necrosis of hip)
Vincent Vela MD [Family Provider] -
Prescriptions:
New
(DME) OneTouch Verio test strips Strip
Qty: 200 1RF
Rx Instructions:
Test before meals and HS As Directed 3 times per day. E11
(DME) blood-glucose meter [OneTouch Verio Flex meter] Misc
Qty: 1 0RF
Rx Instructions:
E1165
(DME) lancets [OneTouch Delica Plus Lancet] 30 gauge Misc
Qty: 200 1RF
Rx Instructions:
Test before meals and HS As Directed 3 times per day. E11
tamsulosin 0.4 mg Capsule
0.8 mg PO DAILY Qty: 60 0RF
Ertapenem [Invanz] 1000 MG
0.9% Sodium Chloride [Nss] 50 ML
120 mls/hr IV Q24H
Ordered By: Avi Allred MD
Last Taken: 09/16/24 12:29 60 mls
insulin glargine [Lantus Solostar U-100 Insulin] 100 unit/mL (3 mL) insulin pen
24 unit SC HS Qty: 15 0RF
insulin aspart U-100 [Novolog FlexPen U-100 Insulin] 100 unit/mL (3 mL) insulin pen
5 unit SC QAC Qty: 15 0RF
Continued
allopurinol 300 MG tablet
300 mg PO DAILY
amlodipine 10 MG tablet
10 mg PO DAILY
acetaminophen 325 MG tablet
650 mg PO Q4HPRN PRN (Reason: mild pain/SANDOVAL/temp> 100.4F) 0RF
finasteride 5 mg Tablet
5 mg PO DAILY Qty: 30 0RF
nebivolol 10 mg Tablet
10 mg PO DAILY
rosuvastatin 20 mg Tablet
20 mg PO DAILY
Gemtesa 75 mg Tablet
75 mg PO DAILY
Discontinued
sulfamethoxazole-trimethoprim [Bactrim DS] 800-160 mg Tablet
1 tab PO BID
Discharge Orders:
Discharge Patient (As Directed); Ordered 09/16/24
Ordered By: Avi Allred
Discharge Date and Time
Print Language: SOMALI
--- NOTE | 2024-09-16 14:29 | CM ---
Reviewed the chart notes and spoke with the patient and his spouse via telephone. Patient accepted at the outpatient infusion center for tomorrow at 11:30am. CM continues to be available to patient/family and is monitoring medical plan for
needs at discharge.
Plan: Discharge to home with outpatient infusion starting tomorrow at 11:30am.
[2024-09-16 15:10] VITALS: BP 135/67
--- NOTE | 2024-09-16 15:19 | PTCARENOTE ---
Patient discharged home, transported by spouse. This RN clarified with CM that patient is set up with outpatient infusions for tomorrow, CM to clarify with patient the time. Rsubq port deaccessed by IV team. This RN reviewed discharge instructions
with patient, patient stated he believes he was told not to take flomax per nephrology here; patient has been receiving scheduled flomax throughout admission. This RN clarified with Dr Simon of nephrology, stated to continue taking flomax; this
RN confirmed with patient that nephrology stated to continue to flomax. This RN printed copy of patient's CT scan from earlier in admission, stated patient is recommended to have ortho f/u in 1-2 months per DC paperwork, patient verbalized
understanding. Patient states he feels comfortable checking sugars and administering insulin at home. Patient dressed and gathered belongings in room, taken down to 's car via staff escort and wheelchair.
--- NOTE | 2024-09-17 14:41 | PN.CDI ---
Addendum entered and electronically signed by Avi Allred MD 09/18/24 07:06:
no changes to doc
Original Note:
CDI
- -
CDI:
Physician Documentation Request
Admit Date: 09/06/24 16:31
Dear Doctor Brigida,
The diagnosis of possible prostatitis was documented on urology progress notes but not consistently in subsequent documentation.
Please clarify the following:
____ - prostatitis was present
____ - prostatitis is still a likely, suspected, probable diagnosis
____ - Other
Use of terms such as suspected, likely, concern for, or probable (associated with a specific diagnosis that is being evaluated, monitored, or treated as if it exists) are acceptable and can be coded in the inpatient setting, when documented at the
time of discharge.
Thank you,
Rosita Guevara RN, BSN
CDI Specialist
tiger text
Please use your independent medical judgment in providing your response.
--- NOTE | 2024-09-17 14:48 | PN.CDI ---
CDI
- -
CDI:
Physician Documentation Request
Admit Date: 09/06/24 16:31
Dear Doctor Brigida,
The diagnosis of cystitis was documented in urology progress notes but is not consistently noted in subsequent documentation.
Please clarify the following:
____ - cystitis was present
____ - cystitis was ruled out
____ - Other
Use of terms such as suspected, likely, concern for, or probable (associated with a specific diagnosis that is being evaluated, monitored, or treated as if it exists) are acceptable and can be coded in the inpatient setting, when documented at the
time of discharge.
Thank you,
Rosita Guevara RN, BSN
CDI Specialist
tiger text
Please use your independent medical judgment in providing your response.
== END 2024-09-16 16:52 | disposition home or self-care (01) | DRG 690 ==
LOC: 2 NORTH 16:31
PROVIDERS: Emergency Medicine; Hospitalist; Nurse Practitioner Family; Physician Assistant Medical; Specialist; ADMITTING PHYSICIAN Hospitalist; ATTENDING PHYSICIAN Internal Medicine; CONSULT PHYSICIAN Internal Medicine Infectious Disease; CONSULT PHYSICIAN Specialist; CONSULT PHYSICIAN Urology; EMERGENCY PHYSICIAN Emergency Medicine; FAMILY PHYSICIAN Family Medicine
DX: N10 Acute pyelonephritis (principal); E87.1 Hypo-osmolality and hyponatremia; Z68.41 Body mass index [BMI] 40.0-44.9, adult; N17.0 Acute kidney failure with tubular necrosis; B96.89 Other specified bacterial agents as the cause of diseases classified elsewhere; I12.9 Hypertensive chronic kidney disease with stage 1 through stage 4 chronic kidney disease, or unspecified chronic kidney disease; N18.31 Chronic kidney disease, stage 3a; E11.22 Type 2 diabetes mellitus with diabetic chronic kidney disease; N26.1 Atrophy of kidney (terminal); I70.1 Atherosclerosis of renal artery; N40.0 Benign prostatic hyperplasia without lower urinary tract symptoms; E87.5 Hyperkalemia; E66.9 Obesity, unspecified; M10.9 Gout, unspecified; E83.118 Other hemochromatosis; K74.60 Unspecified cirrhosis of liver; E78.00 Pure hypercholesterolemia, unspecified
CPT/HCPCS: 74177; 80048; 81003; 81015; 81099; 82570; 82962; 83036; 84132; 84300; 85025; 85027; 87086; 93005; 96365; 97116; 97162; 97165; 99285; J1335; J2997; Q9967

== ENCOUNTER 2024-09-19 06:34 | Outpatient (RCR) | payer OTHER, SELFPAY ==
[2024-09-17 11:35] VITALS: BP 133/71
[2024-09-17] MEDS: INVANZ 60 MG IV (11:42)
[2024-09-18 10:52] VITALS: BP 147/77
[2024-09-18] MEDS: INVANZ 60 MG IV (11:03)
[2024-09-19] MEDS: INVANZ 60 MG IV (06:55)
[2024-09-19 07:17] VITALS: BP 150/68
[2024-09-19 08:10] VITALS: BP 141/65
== END 2024-10-12 23:59 | disposition home or self-care (01) ==
LOC: OID 06:34
PROVIDERS: ATTENDING PHYSICIAN Student in an Organized Health Care Education/Training Program
DX: N39.0 Urinary tract infection, site not specified (principal)
CPT/HCPCS: 96365; J1335

== ENCOUNTER 2024-10-26 22:34 | Inpatient (IN) | payer OTHER, SELFPAY ==
[2024-10-26 18:57] VITALS: BP 155/83
[2024-10-26 19:11] LABS: Urine Albumin 4+ (Neg - Trace); Urine Bilirubin Negative (Negative); Urine Character Clear (Clear); Urine Color Yellow; Urine Glucose Negative (Negative); Urine Ketone Negative (Negative); Urine Leukocyte 3+ (Negative); Urine Nitrite Negative (Negative); Urine Occult Blood 4+ (Negative); Urine Urobilinogen Negative (Neg - 1+)
[2024-10-26 19:18] LABS: Urine Bacteria Moderate (Negative); Urine Squamous Cell 0-2 /LPF (Few); Urine White Cell >100 /HPF (0-5)
[2024-10-26 19:21] LABS: Urine Yeast Few (Negative)
[2024-10-26 20:05] VITALS: BMI 38.4
--- NOTE | 2024-10-26 20:26 | ED.GENMED ---
History of Present Illness
General
Chief Complaint: Male Genito-Urinary Symptoms
Source: patient
Exam Limitations: none
Time Seen by Provider: 10/26/24 20:01
Nursing documentation reviewed up to this point in time: agreed with
History of Present Illness
History of Present Illness:
Patient currently being treated for cystitis via Augmentin, as prescribed by his urologist, Dr. Arreguin, presents to ED secondary to worsening pain with urination despite treatment. Patient was admitted for similar complaint last month, during which
time he received IV antibiotics, which was continued after he was discharged home. Patient and spouse feel that his symptoms never resolved completely, but has worsened recently. Denies fever or chills. Denies abdominal pain. Denies nausea,
vomiting, or diarrhea. Denies dizziness. Patient states that he does not feel as though he is emptying completely when he urinates. Patient has spoken with Dr. Arreguin and is scheduled for an outpatient cystoscopy next month.
Past History
Past History
ED Past Medical History: HTN, Hypercholesterolemia, NIDDM and Other (Hemochromatosis, kidney stones, bladder stones gout, stage II kidney disease)
ED Past Surgical History: Urological and Other (Right chest wall port)
Social History
Tobacco: Non-smoker
Alcohol: None
Drug: None
Personal:
Living: with family
Employment: Employed
Family History
Family History: Other
Review of Systems
Review of Systems
Allergies reviewed?: Yes
All Other Systems: ROS reviewed and negative except as documented in HPI and ROS
Constitutional: Reports no symptoms; Denies fever
Respiratory: Reports no symptoms
Cardiac: Reports no symptoms
ABD/GI: Reports no symptoms; Denies abdominal pain, vomiting or diarrhea
: Reports dysuria, frequency, urgency and dark urine
Musculoskeletal: Reports no symptoms
Skin: Reports no symptoms
Neurological: Reports no symptoms
Phy Exam
Physical Exam
Physical Exam:
Physical Exam
General: mild distress, not acutely ill. afebrile
Head: nc/at. eomi
Neck: supple. normal range of motion.
Abdomen: normal bowel sounds. not tender.
Neuro: alert and oriented x 3. no focal neurological deficits
Skin: no rash
Psychiatric: well kept. interactive and cooperative
Extremities: no edema. no calf tenderness.
Course
Orders/Labs/Results
Orders:
Orders
10/26/24 Dinner
2000 calorie (17 carb) Diabetic
At Your Request: Full Participation
10/26/24 19:03
Urinalysis Reflex To Culture Urgent
Date Specimen was Collected: 10/26/24
Time Specimen was Collected: 19:00
Urine Microscopic Reflex Cult Urgent
Urine Culture Urgent
ARELY Source: U
Specimen Description:
Date Specimen was Collected: 10/26/24
Time Specimen was Collected: 19:00
10/26/24 20:31
Electrocardiogram (*1) Urgent
Reason for Study: QTc Monitoring
EKG- Treatment ONCE
10/26/24 20:41
Ertapenem [Invanz] 1,000 mg 0.9% Sodium Chloride [Nss] 50 ml IV NOW
10/26/24 20:45
Basic Metabolic Panel Urgent
Complete Blood Count/With Diff Urgent
Magnesium Urgent
10/26/24 21:37
Tamsulosin [Flomax] 0.4 mg PO NOW STA
10/26/24 22:09
Admit/Transfer Patient As Directed
Co-Sign Provider:
Level of Care: Inpatient admission
Assign to:: Medical/Surgical
Physician / Group: Aileen
Diagnosis: Cystitis
Reason for Hospitalization: Urology and ID consults
Expected length of stay greater than two midnights?: Yes
ELOS- Estimated Length of Stay in days: 3
I certify the patient meets the requirements for IP care: Yes
10/26/24 22:11
PRN Pain Medication Management As Directed
May give lesser potent ordered pain med per pt: Yes
preference::
Protocol:: Medication orders for pain may be administered in a
manner that supports deferring to patient preference
when the pt is:
- Requesting an ordered lesser potent pain medication.
Least to most potent pain medications are defined
as: acetaminophen < NSAID < tramadol < opioids
(morphine, oxycodone, hydromorphone).
- Requesting a lesser dose of the same medication IF
ORDERED.
- Requesting a less intrusive route of administration
if both routes are prescribed by the provider (PO <
IV).
10/26/24 22:12
Code Status As Directed
Resuscitation Status: Full Code
10/26/24 23:10
Acetaminophen [Tylenol] 650 mg PO Q4HPRN PRN
Dextrose 50%-Water [Dextrose 50% Syringe] 12.5 grams IV [id number] PRN
Glucagon [GlucaGen] 1 mg IM PRN PRN
10/26/24 23:10
Consult Notification Routine
Specialty to Notify: Infectious Disease
INFECTIOUS DISEASE CONSULT Routine
Consulting Provider: Geronimo Johnson
Was physician already notified: No
Reason for consult: recurrent uti vs interstitial cystitis
UROLOGY CONSULT Routine
Consulting Provider: Adair Pleitez
Was physician already notified: Yes
Activity As Directed
Activity Level: Out of Bed-Early Mobility
With Assistance
Bedside Glucose Monitoring As Directed
Frequency: AC&HS
Additional Instructions:: Change to q6h if pt on TPN, tube feeding or not eating
I&O [Intake/ Output] As Directed
Frequency: q12h
Vital Signs As Directed
Frequency: Per unit guidelines
DX Deep Vein Thrombosis Video Routine
10/27/24 00:00
Heparin 5,000 units SC Q8
10/27/24 06:00
Basic Metabolic Panel IN AM
Complete Blood Count/No Diff IN AM
10/27/24 07:30
Insulin Aspart Corrective Mod [Novolog Flexpen-Moderate Resistance] See Protocol SC AC
Insulin Aspart Pen [Novolog Flexpen] 5 units SC AC
10/27/24 08:00
Allopurinol [Zyloprim] 300 mg PO DAILY
Amlodipine [Norvasc] 10 mg PO DAILY
Finasteride [Proscar] 5 mg PO DAILY
Nebivolol HCl [Bystolic] 10 mg PO DAILY
Rosuvastatin Calcium [Crestor] 20 mg PO DAILY
Tamsulosin [Flomax] 0.4 mg PO DAILY
10/27/24 22:00
Ertapenem [Invanz] 1,000 mg 0.9% Sodium Chloride [Nss] 50 ml IV Q24H
Melatonin 10 mg PO HS
Abnormal Lab Results
10/26/24 10/26/24
19:03 20:45
RBC 4.04 L 10^6/uL
(4.70-6.10)
Hgb 12.6 L g/dL
(13.0-18.0)
Hct 37.4 L %
(39.0-52.0)
MCH 31.2 H pg
(27.0-31.0)
MPV 12.9 H fL
(7.4-10.4)
Abs Immat Gran (auto) 0.1 H 10^3/uL
(0-0.05)
Absolute Monos (auto) 0.8 H 10^3/uL
(0.1-0.6)
Immature Gran % 0.6 H %
(0-0.5)
Chloride 109 H mmol/L
(98-107)
Carbon Dioxide 21 L mmol/L
(22-30)
BUN 35 H mg/dl
(9-20)
Glucose 133 H mg/dl
(70-99)
Ur Occult Blood Reflex 4+ A
(Negative)
Leukocyte Esterase Rfl 3+ A
(Negative)
Urine RBC 11-15 A /HPF
(0-2)
Urine WBC (Reflex) >100 A /HPF
(0-5)
Urine Bacteria (Reflex) Moderate A
(Negative)
Urine Yeast Few A
(Negative)
Urine Albumin (Reflex) 4+ A
(Neg - Trace)
10/26/24 20:45
10/26/24 20:45
Vital Signs
Initial and Last Documented VS:
Initial Vital Signs
Temp Pulse Resp BP Pulse Ox
98.0 F 69 16 155/83 95
10/26/24 18:57 10/26/24 18:57 10/26/24 18:57 10/26/24 18:57 10/26/24 18:57
Last Documented Vital Signs
Temp Pulse Resp BP Pulse Ox
98.0 F 69 18 120/53 97
10/26/24 18:57 10/26/24 23:46 10/26/24 23:46 10/26/24 23:46 10/26/24 23:46
MDM/Problems Addressed
MDM/Problems Addressed:
History and exam consistent with ongoing cystitis, clinically worsening, despite follow-up with antibiotics. As such, patient will be admitted for further evaluation treatment, including IV antibiotics. Patient may benefit from urology
consultation, for diagnostic cystoscopy during hospitalization.
On-call urology, Dr. Pleitez, notified via [place] text.
*EKG
EKG Intrepretation Date: 10/26/24
Heart Rate: 71
Rate: normal
Rhythm: sinus
[place]: normal axis
Interval: normal interval
QRS Pattern: left bundle branch block
*Critical Care Note
Total Time (30-74mins, 75-104mins- exclusive of procedures): Not Applicable
ED Attending Note
-
Portions of this chart may have been created with voice recognition software.� Occasional wrong word or��sound alike� substitutions may have occurred due to the inherent limitations of voice recognition software.
Discharge Plan
Departure
Patient Disposition: Admit
Date of Disposition: 10/26/24
Time of Disposition: 21:37
Admit to: Med/Surg
Presentation/result/management discussed w/ accepting MD/DO: Hospitalist
Discharge Problem:
Cystitis
Interventions
Interventions:
*Risk Screen - Suicide Last Done: 10/26/24 20:05
*General Assessment Last Done: 10/26/24 20:05
*Neglect/Abuse Screening Last Done: 10/26/24 20:05
*ED- Fall Risk Assessment Last Done: 10/26/24 20:05
*ED COVID-19 Vaccine History Last Done: 10/26/24 20:05
ED-Male Genitourinary Assessment Last Done: 10/26/24 20:05
--- NOTE | 2024-10-26 20:56 | VATNOTE ---
pt & state that port was power injectable and has had CT scans in past when port was used. However, previous charting states port is NOT power injectable.
[2024-10-26] MEDS: INVANZ 60 MG IV (21:05)
[2024-10-26 21:09] VITALS: BP 146/69
[2024-10-26 21:16] LABS: Calcium 8.9 mg/dl (8.4-10.2); Carbon Dioxide 21 mmol/L (22-30); Chloride 109 mmol/L (98-107); Estimated Creatinine Clearance 67 ml/min; Glucose 133 mg/dl (70-99); Potassium 4.2 mmol/L (3.5-5.1); Sodium 140 mmol/L (135-145)
[2024-10-26 21:21] LABS: % Basophils 0.4 % (0-2); % Eosinophils 1.2 % (0-6); % Immature Granulocytes 0.6 % (0-0.5); % Lymphocytes 20.8 % (20.5-51.1); % Monocytes 8.4 % (1.7-9.3); % Neutrophils 68.6 % (42.2-75.2); Absolute Eosinophils 0.1 10^3/uL (0-0.7); Absolute Immature Granulocytes 0.1 10^3/uL (0-0.05); Absolute Lymphocytes 1.9 10^3/uL (1.2-3.4); Absolute Monocytes 0.8 10^3/uL (0.1-0.6); Absolute Neutrophils 6.2 10^3/uL (1.4-6.5); Hematocrit 37.4 % (39.0-52.0); Hemoglobin 12.6 g/dL (13.0-18.0); Mean Corp Hgb Conc. 33.7 g/dL (33.0-37.0); Mean Corpuscular Hgb 31.2 pg (27.0-31.0); Mean Corpuscular Volume 92.6 fL (80.0-94.0); Mean Platelet Volume 12.9 fL (7.4-10.4); Nucleated Red Blood Cells % 0 % (-); Platelet Count 155 10^3/uL (130-400); Red Blood Cell Count 4.04 10^6/uL (4.70-6.10); Red Cell Dist. Width 14.1 % (11.5-14.5)
[2024-10-26 21:25] LABS: Blood Urea Nitrogen 35 mg/dl (9-20)
--- NOTE | 2024-10-26 21:44 | HPS.HSE ---
Family Physician
-
Family Physician: NOT KNOW UNKNOWN - PT DOES
Chief Complaint
-
Dysuria
History of Present Illness
Patient is a 69 y/o male past medical history of hypertension, hyperlipidemia, diabetes mellitus, CKD and recent hospitalization for UTI vs Urethritis. Patient was hospitalized from September 06 to September 16 for possibly UTI vs Urethritis. He was
evaluated by infectious disease and completed a coarse of ertapenem on September 19. Patient reports symptoms improved but state he never felt quite back to baseline. Symptoms worsened over the next few weeks and he was started on Augmentin 12 days
ago. He reports despite oral antibiotics he continues with significant dysuria, urgency and frequency. He denies fevers, sweats or chills.
Medical History
Past Medical History
Past Medical History: Reports Other
Additional Past Medical History:
Essential Hypertension
Hyperlipidemia
Diabetes Mellitus, Type II
CKD Stage II
Gout
BPH
Bladder Stones / Staghorn Caliculi
Past Surgical History: Reports Other
Additional Past Surgical History:
Laparoscopic Sigmoidectomy / Takedown Colovesical Fistula
Right Rotator Cuff Repair
Left Knee Surgery
Left Ankle Surgery
Social History
Tobacco: Non-smoker
Alcohol: Occasional
Personal:
Living: With Family
Family History
Family History: Not pertinent
Allergies / Home Medications
Allergies reflects when Allergies were last updated in [employer].
Home Medications with original date entered in [employer]
Allergy/Medication List:
Allergies
Allergy/AdvReac Type Severity Reaction Status Date / Time
GERARDO Inhibitors Allergy 'SHUT MY Verified 10/26/24 18:59
KIDNEYS
DOWN'
Home Medications
allopurinol 300 mg tablet 300 mg PO DAILY Gout 04/12/20
amlodipine 10 mg tablet 10 mg PO DAILY Blood pressure 04/13/20
finasteride 5 mg tablet 5 mg PO DAILY #30 tabs 08/10/22
nebivolol 10 mg tablet 10 mg PO DAILY Blood pressure 11/09/22
rosuvastatin 20 mg tablet 20 mg PO DAILY 09/06/24
acetaminophen 500 mg tablet (Tylenol Extra Strength) 1,000 mg PO BID 10/26/24
amoxicillin 875 mg-potassium clavulanate 125 mg tablet 1 tab PO BID 10/26/24
biotin 10,000 mcg chewable tablet (Hair, Skin and Nails (biotin)) 10,000 mcg PO DAILY 10/26/24
insulin aspart U-100 100 unit/mL (3 mL) subcutaneous pen (Novolog FlexPen U-100 Insulin aspart) 5 - 6 unit SC AC 10/26/24
insulin glargine 100 unit/mL (3 mL) subcutaneous pen (Lantus Solostar U-100 Insulin) 20 - 24 unit SC HS 10/26/24
magnesium oxide 400 mg PO DAILY 10/26/24
melatonin 5 mg tablet 10 mg PO HS 10/26/24
prednisone 5 mg tablet 5 mg PO DAILYPRN PRN gout attack 10/26/24
vitamin B complex 1 tab PO DAILY 10/26/24
Review of Systems
-
A 12 point ROS was completed and negative except as noted: Yes
Physical Exam
Vital Signs
Vital Signs
Temp Pulse Resp BP Pulse Ox
98.0 F 64 16 146/69 96
10/26/24 18:57 10/26/24 21:09 10/26/24 21:09 10/26/24 21:09 10/26/24 21:09
Physical Exam
General: Well Developed and Well Nourished
HEENT: Anicteric and Moist mucous membranes
Respiratory: Clear and Non Labored Respirations
Cardiac: S1/S2 and Regular Rhythm
GI: Soft and Non Tender
Rectal: Deferred by Provider
Genito-urinary: No costovertebral tender
Musculoskeletal: No Clubbing, No Cyanosis and No Edema
Skin: Warm and Dry
Neuro: Awake, Alert, Oriented and Nonfocal/grossly intact
Psych: Calm
Laboratory Results
-
10/26/24 20:45
10/26/24 20:45
Data Reviewed
-
Lab Data: Labs Reviewed by me
Old Records: Reviewed
Impression/Plan
-
Recurrent Urinary Symptoms, possible Recurrent UTI (failed outpatient antibiotics) vs Interstitial Cystitis
-Consult Urology
-Consult Infectious Disease
-Continue ertapenem
-Await urine culture
Essential Hypertension
-Continue amlodipine and nebivolol
Hyperlipidemia
-Continue Crestor
Diabetes Mellitus, Type II
-HgbA1c 10.8 in Aug 2024
-Continue Lantus and NovoLog
-Monitor sugars and continue coverage insulin
CKD Stage II
-Creatinine at baseline
Gout
-Continue allopurinol
BPH
-Continue finasteride
-Add Flomax in hope this may help some of his urinary symptoms
DVT proph: SC Heparin
Code Status: Full Code
[2024-10-26] MEDS: FLOMAX 0.4 MG PO (21:47)
--- NOTE | 2024-10-26 22:30 | W.PN.UPDATE ---
Update Note
Progress Note Update
Patient seen in conjunction with VASHTI. I concur with her findings from scope. I agree with the assessment and plan.
Briefly, this is a 69-year-old with past medical history significant for diabetes, hypertension, history of nephrolithiasis with uric acid stones, hyperlipidemia, gout presents to the emergency department with ongoing urinary symptoms. He has a
history of recurrent urinary tract infections/cystitis and he was last admitted to the hospital in early September. At that time was diagnosed with cystitis but cultures were negative. Was treated with direct [place] Am and completed a course will for
ertapenem on September 19. Patient reported that his symptoms did not completely resolved but with markedly improved. He called his urologist show he about a week and a half later to report that his symptoms appear to be coming back. By 3 weeks ago he
said he had pretty significant symptoms and was started on Augmentin 2.5 weeks ago. Despite admitting the patient continues to have burning pain worse with urination. He reports the pain is in the urethra as well as in the bilateral lower pelvic
region. He reports nocturia, frequency and urgency. He denies any flank pain. He denies any fevers or chills. He denies any nausea or vomiting. He is currently in the middle of the course of Augmentin and has a planned cystoscopy in early November.
Here in the emergency department he was afebrile, blood pressure was 146/70 with a pulse of 67 and he was satting 96% on room air. ECG was unremarkable with known left bundle. He has no leukocytosis, electrolytes BUN/creatinine with stable. UA
showed positive WBCs and leukocyte esterase, negative nitrites, moderate bacteria. Urine cultures have been negative in the recent past.
Appears to be emptying bladder without postvoid residual.
Assessment and plan
Urinary symptoms with dysuria, pelvic discomfort, urgency, frequency and positive u/a. Similar presentation recently with improvement on antibiotics. He has been on abx prior to getting the cultures last time and again this time. Possibly
interstitial cystitis versus infectious cystitis clouded by abx use
- admit to med/surg
- iv ertapenem given, will continue for now
- blood cultures if spike fever
- symptomatic tx
- ID consultation
- urology has been consulted
DM II
- continue sliding scale insul
- lantus hs
- statin as per home regimen
DVT PPX - sq heparin
Code status - full code
[2024-10-26 23:46] VITALS: BP 120/53
[2024-10-27 00:22] LABS: Glucose - Point of Care 155 mg/dl (70-99)
[2024-10-27 05:32] LABS: Hematocrit 36.8 % (39.0-52.0); Hemoglobin 12.6 g/dL (13.0-18.0); Mean Corp Hgb Conc. 34.2 g/dL (33.0-37.0); Mean Corpuscular Volume 90.4 fL (80.0-94.0); Mean Platelet Volume 12.5 fL (7.4-10.4); Platelet Count 147 10^3/uL (130-400); Red Blood Cell Count 4.07 10^6/uL (4.70-6.10); White Blood Cell Count 8.9 10^3/uL (4.8-10.8)
[2024-10-27 05:52] LABS: Blood Urea Nitrogen 27 mg/dl (9-20); Calcium 8.9 mg/dl (8.4-10.2); Carbon Dioxide 22 mmol/L (22-30); Chloride 108 mmol/L (98-107); Estimated Creatinine Clearance 73 ml/min; Glucose 169 mg/dl (70-99); Potassium 4.1 mmol/L (3.5-5.1); Sodium 141 mmol/L (135-145); eGFR > 60.00
[2024-10-27 08:32] LABS: Glucose - Point of Care 150 mg/dl (70-99)
[2024-10-27 08:33] VITALS: BP 143/62
[2024-10-27] MEDS: BYSTOLIC 10 MG PO (08:35)
[2024-10-27] MEDS: PROSCAR 5 MG PO (08:35)
[2024-10-27] MEDS: ZYLOPRIM 300 MG PO (08:35)
[2024-10-27] MEDS: NORVASC 10 MG PO (08:35)
[2024-10-27] MEDS: FLOMAX 0.4 MG PO (08:35)
[2024-10-27] MEDS: CRESTOR 20 MG PO (08:36)
[2024-10-27] MEDS: NOVOLOG FLEXPEN 5 UNITS SC ×3 (08:36→18:34)
[2024-10-27] MEDS: NOVOLOG FLEXPEN-MODERATE RESISTANCE 1 UNITS SC (08:36)
--- NOTE | 2024-10-27 12:31 | CON.ID ---
Consultation
-
Date/Time Consultation Requested: October 26, 2024 2310
Date/Time Consultation Performed: October 27, 2024 1230
Requesting Provider: Irish Melgoza PA-C
Performing Provider: Dr. Rani Lopez
Reason for Consultation: Recurrent UTI versus interstitial cystitis
Chief Complaint / Past History
Chief Complaint
persistent urinary urgency and frequency
History of Present Illness
Mr Oscar is a 69 year old male with history of diverticulitis, colovesicular fistula s/p repair 2022, BPH, resolved staghorn calculus who presented to the hospital October 26 due to persistent dysuria despite being on Augmentin x 12-1/2 days.
Patient was recently hospitalized September 06 to September 16 with severe dysuria that did not respond to outpatient levofloxacin and Bactrim, urine cultures were negative, he was placed on empiric ertapenem x 14 days which he completed September 19. Patient
reports he did have improvement of his urinary symptoms but not completely resolved. His symptoms then started to get worse. Symptoms consist of difficulty urination initiation with significant pain, weak urine output then dysuria throughout
voiding. October 06, 2024 outpatient UA positive pyuria, culture negative. 13 days ago urology prescribed amoxicillin/clavulanic 875 mg p.o. twice daily x 14 days. However patient's symptoms persisted and therefore he presented to the hospital. He
is scheduled for cystoscopy in November. He is currently on ertapenem. There is some improvement. The urine flow is better. However he continues to have dysuria while voiding. No flank pain. No fevers or chills. No risk factors for tuberculosis.
No history of STDs. Last hospitalization urine mycoplasma and Ureaplasma PCR were negative.
Past History
Additional Past Medical History:
hypertension
hyperlipidemia
gout
BPH
hx bladder stones x2
hx staghorn caliculi (uric acid - dissolved with med >20 yrs ago)
cystoscopy (stone retrieval and U stent)
laparoscopic sigmoidectomy/takedown colovesical fistula (11/16/2022)
Right shoulder repair
Allergy History:
GERARDO Inhibitors Allergy (Verified 10/26/24 18:59)
'SHUT MY KIDNEYS DOWN'
Medications Reviewed: Yes
Current Antibiotics:
Ertapenem
Social History
Tobacco: Non-Smoker
Alcohol: Occasional
Drug: Marijuana (for insomnia)
Family History
Family History: Not Pertinent
Review of Systems
Review of Systems
General: Negative Fever, Chills or Change in Appetite
HEENT: Negative Sinus Problems or Headache
Cardiovascular: Negative Chest Pain
Respiratory: Negative Dyspnea
Gasteroenterology: Negative Nausea, Vomiting or Diarrhea
Genital / Urological: Dysuria; Negative Hematuria or Flank Pain
Endocrine: Negative Weakness
Skin / Hair / Nails: Negative Rash
All systems: All other systems were reviewed and were negative
Vital Signs
Temp Pulse Resp BP Pulse Ox
98.5 F 70 18 143/62 95
10/27/24 11:51 10/27/24 08:33 10/27/24 08:33 10/27/24 08:33 10/27/24 10:43
Physical Exam
Physical Exam
Constitutional: No Acute Distress and Comfortable
Eyes: No Conjunctival Hemorrhage and Sclera Anicteric
Cardiovascular: Regular Rate and S1/S2
Pulmonary: Clear
Gastrointestinal: Soft, Non Tender, Non Distended and Normal Bowel Sounds
Genito-Urinary: Negative Suprapubic Tenderness or CVA Tenderness
Extremities: Negative Edema
Neurological: AO x 3
Lab / Diagnostic Study Results
10/27/24 05:11
10/27/24 05:11
Abs Immat Gran (auto) 0.1 10^3/uL (0-0.05) H 10/26/24 20:45
Absolute Neuts (auto) 6.2 10^3/uL (1.4-6.5) 10/26/24 20:45
Absolute Lymphs (auto) 1.9 10^3/uL (1.2-3.4) 10/26/24 20:45
Absolute Monos (auto) 0.8 10^3/uL (0.1-0.6) H 10/26/24 20:45
Absolute Basos (auto) 0.0 10^3/uL (0-0.2) 10/26/24 20:45
Immature Gran % 0.6 % (0-0.5) H 10/26/24 20:45
Neutrophils % 68.6 % (42.2-75.2) 10/26/24 20:45
Lymphocytes % 20.8 % (20.5-51.1) 10/26/24 20:45
Monocytes % 8.4 % (1.7-9.3) 10/26/24 20:45
Eosinophils % 1.2 % (0-6) 10/26/24 20:45
Basophils % 0.4 % (0-2) 10/26/24 20:45
Ur Squamous Epith Cells 0-2 /LPF (Few) 10/26/24 19:03
Microbiology Results
Micro:
10/26/24 19:03 Urine Culture - Pending
Urine
Assessment / Plan
# Suspect noninfectious interstitial cystitis over UTI
- Multiple outpatient and inpatient urine cultures were negative, both before and while on antibiotic
- Urinary symptoms did not resolve while on antibiotics
- Current Urine culture pending, suspect will be negative
- Can continue ertapenem (d2) for now.
- For eventual cystoscopy as per urology.
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
hypertension
hyperlipidemia
gout
BPH
hx bladder stones x2
hx staghorn caliculi (uric acid - dissolved with med >20 yrs ago)
cystoscopy (stone retrieval and U stent)
laparoscopic sigmoidectomy/takedown colovesical fistula (11/16/2022)
Right shoulder repair
--- NOTE | 2024-10-27 12:39 | CONS.URO ---
Consultation
-
Performing Provider: Chuyfer
Reason for Consultation: Dysuria
Medical History
History of Present Illness
69M with past hx of kidney and bladder stones
BPH on finasteride and gemtesa
Atrophic L kidney
Prior colovesical fistula s/p repair in 2022
In 09/2024 presented to ED for evaluation of persistent urinary urgency, frequency, and dysuria. He stated symptoms started at the beginning of the month and he went to see Dr. Arreguin. Urology took urine sample and was mishandled by
[facility]/inconclusive but they had started a 10-course of Levaquin. The Levaquin course was finished and patient continued with symptoms and a second UA was obtained 08/29 and script for Bactrim DS was given. He reports second urine culture resulted
as not concerning for UTI
CT scan showed diffuse cystitis as well as mild bilateral collecting system fullness c/w ascending UTI/early pyelonephritis
Patient was admitted on IV abx and symptoms slowly improved with course of IV antibiotic Ertapenem (cultures were never positive)
PVR bladder scans were around 300 range but improved to <80cc through his stay
Since then symptoms worsened after abx course completed
He called urology office and urine culture 10/09/24 showed WBC and RBC but the culture was negative
He was started on a course of Augmentin 10/13 which has not improved symptoms
He is scheduled for outpatient cystoscopy 11/19
He presented to ER 10/26 for continued dysuria, frequency, and urgency
UA positive with culture pending
PVR 70cc
He was restarted on Ertapenem
Urology consulted for eval
Past Medical History
Past Medical History: Other (Essential Hypertension Hyperlipidemia Diabetes Mellitus, Type II CKD Stage II Gout BPH Bladder Stones / Staghorn Caliculi)
Past Surgical History: Other (Laparoscopic Sigmoidectomy / Takedown Colovesical Fistula Right Rotator Cuff Repair Left Knee Surgery Left Ankle Surgery )
Social History
Tobacco: Non-smoker
Alcohol: Occasional
Personal:
Living: With Family
Family History
Family History: Reviewed & Not Pertinent
Allergies/Home Medications
Allergies
Allergy/AdvReac Type Severity Reaction Status Date / Time
GERARDO Inhibitors Allergy 'SHUT MY Verified 10/26/24 18:59
KIDNEYS
DOWN'
Home Medications
�Medication �Instructions �Recorded �Confirmed �Type
allopurinol 300 mg tablet 300 mg PO DAILY Gout 04/12/20 10/26/24 History
amlodipine 10 mg tablet 10 mg PO DAILY Blood pressure 04/13/20 10/26/24 History
finasteride 5 mg tablet 5 mg PO DAILY #30 tabs 08/10/22 10/26/24 Rx
nebivolol 10 mg tablet 10 mg PO DAILY Blood pressure 11/09/22 10/26/24 History
rosuvastatin 20 mg tablet 20 mg PO DAILY 09/06/24 10/26/24 History
acetaminophen 500 mg tablet 1,000 mg PO BID 10/26/24 10/26/24 History
(Tylenol Extra Strength)
amoxicillin 875 mg-potassium 1 tab PO BID 10/26/24 10/26/24 History
clavulanate 125 mg tablet
biotin 10,000 mcg chewable tablet 10,000 mcg PO DAILY 10/26/24 10/26/24 History
(Hair, Skin and Nails (biotin))
insulin aspart U-100 100 unit/mL 5 - 6 unit SC AC 10/26/24 10/26/24 History
(3 mL) subcutaneous pen (Novolog
FlexPen U-100 Insulin aspart)
insulin glargine 100 unit/mL (3 20 - 24 unit SC HS 10/26/24 10/26/24 History
mL) subcutaneous pen (Lantus
Solostar U-100 Insulin)
magnesium oxide 400 mg PO DAILY 10/26/24 10/26/24 History
melatonin 5 mg tablet 10 mg PO HS 10/26/24 10/26/24 History
prednisone 5 mg tablet 5 mg PO DAILYPRN PRN gout attack 10/26/24 10/26/24 History
vitamin B complex 1 tab PO DAILY 10/26/24 10/26/24 History
Physical Exam
Vital Signs
Vital Signs
Temp Pulse Resp BP Pulse Ox
98.5 F 70 18 143/62 95
10/27/24 11:51 10/27/24 08:33 10/27/24 08:33 10/27/24 08:33 10/27/24 10:43
Lab / Testing Results
Laboratory Results
10/27/24 05:11
10/27/24 05:11
Physical Exam
General: Well Developed, Well Nourished and No Apparent Distress
Respiratory: Clear and Non Labored Respirations
GI: Soft and Non Tender
Genito-urinary: No Costovertebral Tend
Neuro: AO x 3
Psych: Calm and Intact Judgement
Assessment / Plan
-
69M with hx of colovesical fistula s/p repair 2022, recent admission for suspected prostatitis treated empirically given multiple negative cultures
Presenting with recurrent and worsening dysuria, frequency, and urgency
UA positive for possible UTI but already on Augmentin with negative culture 10/09/24
Emptying relatively well with 70cc PVR
Symptoms improving this AM after starting abx last night
- Unclear cause of recurrent symptoms and unclear if acute infection is present based on recent testing. Causes may include recurrent acute bacterial prostatitis, recurrent or developing colovesical fistula, atypical presentation of worsening
underlying BPH, or interstitial cystitis
- Continue abx pending cultures, follow ID recs
- Start tamsulosin 0.4mg daily, continue finasteride 5mg daily
- Patient does not want pyridium because of staining with incontinence
- PSA 0.9 10/2024 - no concern for prostate cancer
- No imaging evidence for recurrent fistula on CT 08/2024
- Consider cystoscopy when infection controlled, possible - to discuss with Dr. Arreguin
Data Reviewed
-
CT Scan: Image personally visualized and interpreted
Lab Data: Labs Reviewed
[2024-10-27] MEDS: NOVOLOG FLEXPEN-MODERATE RESISTANCE SC ×2 (13:06→18:34)
[2024-10-27] MEDS: TYLENOL 650 MG PO ×2 (13:06→20:16)
--- NOTE | 2024-10-27 14:43 | W.PN.HOSP.TC ---
Today's Communication/Plan
-
maintain on abx
f/u urine cs report
consideration for cysto by urology
Assessment / Plan
Assessment / Plan
Dysuria/Urgency
Possible Recurrent UTI (failed outpatient antibiotics) vs Interstitial Cystitis vs prosatitis
-UA showing mod bacteriuria and significant pyuria
-ID and urology evaluated
-Continue ertapenem for now
-Await urine culture report
-Will require elective cystoscopy, urology considering
Essential Hypertension
-Continue amlodipine and nebivolol
Hyperlipidemia
-Continue Crestor
Diabetes Mellitus, Type II
-HgbA1c 10.8 in Aug 2024
-Continue Lantus and NovoLog
-Monitor sugars and continue coverage insulin
CKD Stage II
-Creatinine at baseline
Gout
-Continue allopurinol
BPH
-Continue finasteride
-Add Flomax in hope this may help some of his urinary symptoms
DVT proph: SC Heparin
Code Status: Full Code
Total time spent : 51 mins
Anticipated Discharge: 24 - 48 hours
Subjective/Interval History
-
Date of Service: October 27, 2024
still have some dysuria/urgency
afebrile overnight
Objective Data
-
Labs:
Laboratory Results
10/27/24
05:11
WBC 8.9
Hgb 12.6 L
Hct 36.8 L
Plt Count 147
Sodium 141
Potassium 4.1
Chloride 108 H
Carbon Dioxide 22
BUN 27 H
Creatinine 1.2
Glucose 169 H
Calcium 8.9
Vital Signs:
Vital Signs
Temp Pulse Resp BP Pulse Ox
98.5 F 70 18 143/62 95
10/27/24 11:51 10/27/24 08:33 10/27/24 08:33 10/27/24 08:33 10/27/24 10:43
Review of Systems
-
Respiratory: Reports No Symptoms
Cardiac: Reports No Symptoms
Abdomen/GI: Reports No Symptoms
Physical Exam
-
General: No Apparent Distress and Comfortable
HEENT: Negative Oxygen
Respiratory: Clear to Auscultation
Cardiac: Regular Rhythm and S1/S2; Negative Murmur or Rub
GI: Soft, Nontender, Nondistended and Normal Bowel Sounds
Musculoskeletal: No Edema
Neuro: Awake, Alert, Oriented, No Motor Deficits and Nonfocal/Grossly Intact
Psych: Calm
[2024-10-27 15:48] VITALS: BP 139/79
[2024-10-27 17:35] LABS: Glucose - Point of Care 139 mg/dl (70-99)
[2024-10-27 19:25] VITALS: BP 141/75
[2024-10-27 19:38] VITALS: BMI 37.8
--- NOTE | 2024-10-27 20:27 | PTCARENOTE ---
Received pt from the ED via wheelchair. Pt ambulates independently and steadily through room. AAOx3, able to make needs known. Lungs clear, medsurg, regular heart tones. C/o dysuria that radiates from penis through low abd with urination, PRN
Tylenol given, see MAR. Remainder of assessment as documented, oriented to unit and call bahena.
[2024-10-27 21:22] LABS: Glucose - Point of Care 142 mg/dl (70-99)
[2024-10-27] MEDS: INVANZ 60 MG IV (22:24)
[2024-10-27] MEDS: LANTUS 0.2 UNITS SC (22:25)
[2024-10-27] MEDS: MELATONIN 10 MG PO (22:30)
[2024-10-27 23:00] VITALS: BP 143/73
[2024-10-28 06:00] VITALS: BMI 37.5
[2024-10-28 07:37] LABS: Glucose - Point of Care 152 mg/dl (70-99)
[2024-10-28 07:39] VITALS: BP 103/60
[2024-10-28 07:48] LABS: Glucose - Point of Care 138 mg/dl (70-99)
--- NOTE | 2024-10-28 07:49 | VATNOTE ---
Right SQ port flushed and checked for blood return. Positive blood return noted. Flushed with heparin per protocol.
[2024-10-28] MEDS: NOVOLOG FLEXPEN-MODERATE RESISTANCE 1 UNITS SC ×2 (08:04→12:40)
[2024-10-28] MEDS: ZYLOPRIM 300 MG PO (08:05)
[2024-10-28] MEDS: FLOMAX 0.4 MG PO (08:05)
[2024-10-28] MEDS: NOVOLOG FLEXPEN 5 UNITS SC ×3 (08:05→17:48)
[2024-10-28] MEDS: BYSTOLIC PO (08:06)
[2024-10-28] MEDS: PROSCAR 5 MG PO (08:06)
[2024-10-28] MEDS: CRESTOR 20 MG PO (08:06)
[2024-10-28] MEDS: NORVASC PO (08:07)
[2024-10-28 08:44] LABS: Blood Urea Nitrogen 24 mg/dl (9-20); Carbon Dioxide 21 mmol/L (22-30); Chloride 108 mmol/L (98-107); Estimated Creatinine Clearance 78 ml/min; Glucose 129 mg/dl (70-99); Potassium 4.4 mmol/L (3.5-5.1); Sodium 140 mmol/L (135-145); eGFR > 60.00
[2024-10-28] MEDS: INVANZ 60 MG IV (08:45)
[2024-10-28 09:04] LABS: Hematocrit 37.6 % (39.0-52.0); Hemoglobin 12.8 g/dL (13.0-18.0); Mean Corpuscular Hgb 30.8 pg (27.0-31.0); Mean Corpuscular Volume 90.4 fL (80.0-94.0); Platelet Count 145 10^3/uL (130-400); Red Blood Cell Count 4.16 10^6/uL (4.70-6.10); Red Cell Dist. Width 13.9 % (11.5-14.5); White Blood Cell Count 8.2 10^3/uL (4.8-10.8)
--- NOTE | 2024-10-28 10:04 | W.PN.SURGUPD ---
Surgical Update
Surgical Update
Patient remains afebrile
No leukocytosis
No fever
Urine C&S negative
---
He continues to c/o dysuria/frequency and urgency with SP discomfort
No gross hematuria
No urge urine incontinence
No CVAT
Imp:
Chronic subacute bacterial prostatitis v. prostatitis syndrome v. interstitial cystitis v. BPH with atypical symptomatology
Plan:
Cystoscopy with hydrodistention 10/29/24
Risk of urethral injury, bladder injury, gross hematuria and worsening pain all reviewed with patient
Written and verbal consent provided
--- NOTE | 2024-10-28 10:30 | PTCARENOTE ---
Patient stated to this RN and tech that he did not receive scheduled 2200 IV Invanz infusion overnight, states medication bag from overnight on IV pole is full. This RN observed full medication bag of IV Invanz on IV pole from scheduled overnight
infusion. Patient states he rang call bahena overnight d/t IV infusion 'beeping,' stated that 'someone came in' and unhooked patient from infusion without flushing with PRN hep lock. This RN notified MD and ID, one time dose of IV Invanz ordered per
ID and infused this AM - see MAR. Nurse diabetes manager made aware of patient's concerns from overnight.
[2024-10-28] MEDS: TYLENOL 650 MG PO ×2 (10:40→16:09)
[2024-10-28 11:08] LABS: Glucose - Point of Care 168 mg/dl (70-99)
--- NOTE | 2024-10-28 11:14 | CM ---
Initial assessment completed
Pt lives with his in a 2 story home; [address], 12 steps to 2nd fl
Independent at baseline, no device to ambulate, drives
DME - none
SNF/HH - denies past hx
Has ride at d/c
PCP - Dr Solorzano
Pharm - [facility]
Plan - anticipate home no needs
--- NOTE | 2024-10-28 11:59 | W.PN.HOSP.TC ---
Today's Communication/Plan
-
for cystoscopy tomorrow
Add as needed Pyridium for symptomatic care
Antibiotics per ID
Follow urine culture report
Assessment / Plan
Assessment / Plan
Dysuria/Urgency
Possible Recurrent UTI (failed outpatient antibiotics) vs Interstitial Cystitis vs prostatitis
-UA showing mod bacteriuria and significant pyuria
-ID and urology evaluated
-Continue ertapenem for now
-Urine cs remains negative,
-Urology planning to do elective cystoscopy tomorrow.
- Patient willing to try Pyridium as needed
Essential Hypertension
-Continue amlodipine and nebivolol
Hyperlipidemia
-Continue Crestor
Diabetes Mellitus, Type II
-HgbA1c 10.8 in Aug 2024
-Continue Lantus and NovoLog
-Monitor sugars and continue coverage insulin
CKD Stage II
-Creatinine at baseline
Gout
-Continue allopurinol
BPH
-Continue finasteride
-Add Flomax in hope this may help some of his urinary symptoms
DVT proph: SC Heparin
Code Status: Full Code
Anticipated Discharge: 24 - 48 hours
Subjective/Interval History
-
Date of Service: October 28, 2024
Patient having ongoing dysuria/discomfort at the end of urination
Denies any hematuria
Remains afebrile overnight
No flank pain/nausea/vomiting
Objective Data
-
Labs:
Laboratory Results
10/28/24
06:55
WBC 8.2
Hgb 12.8 L
Hct 37.6 L
Plt Count 145
Sodium 140
Potassium 4.4
Chloride 108 H
Carbon Dioxide 21 L
BUN 24 H
Creatinine 1.1
Glucose 129 H
Calcium 9.0
Vital Signs:
Vital Signs
Temp Pulse Resp BP Pulse Ox
98.3 F 70 18 103/60 95
10/28/24 07:39 10/28/24 08:07 10/28/24 07:39 10/28/24 08:07 10/28/24 10:29
I&O
10/27/24 10/28/24 10/29/24
06:59 06:59 06:59
Intake Total 240 / 240
Balance 240 / 240
Review of Systems
-
Respiratory: Reports No Symptoms
Cardiac: Reports No Symptoms
Abdomen/GI: Reports No Symptoms
Physical Exam
-
General: No Apparent Distress and Comfortable
HEENT: Negative Oxygen
Respiratory: Clear to Auscultation
Cardiac: Regular Rhythm and S1/S2; Negative Murmur or Rub
GI: Soft, Nontender and Nondistended
Musculoskeletal: No Edema
Neuro: Awake, Alert, Oriented, No Motor Deficits and Nonfocal/Grossly Intact
Psych: Calm
--- NOTE | 2024-10-28 14:03 | W.PN.ID1 ---
Date of Service
Date of Service: October 28, 2024
Today's Communication
- For cystoscopy tomorrow, per Urology
- Can continue ertapenem (d2) through procedure.
Assessment / Plan
# Suspect noninfectious interstitial cystitis
- Multiple outpatient and inpatient urine cultures were negative, both before and while on antibiotic
- Urinary symptoms did not resolve while on antibiotics
- Current Urine culture NO GROWTH. Pt still symptomatic
- For cystoscopy tomorrow, per Urology
- Can continue ertapenem (d2) through procedure.
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
hypertension
hyperlipidemia
gout
BPH
hx bladder stones x2
hx staghorn caliculi (uric acid - dissolved with med >20 yrs ago)
cystoscopy (stone retrieval and U stent)
laparoscopic sigmoidectomy/takedown colovesical fistula (11/16/2022)
Right shoulder repair
Chief Complaint
-: Other (Dysuria)
Subjective / Review of Systems
Still with dysuria.
Vital Signs / Physical Exam
Vital Signs
Vital Signs
Temp Pulse Resp BP Pulse Ox
98.3 F 70 18 103/60 95
10/28/24 07:39 10/28/24 08:07 10/28/24 07:39 10/28/24 08:07 10/28/24 10:29
Physical Exam
Constitutional: No Acute Distress
Cardiovascular: Regular Rate and S1/S2
Pulmonary: Clear
Gastrointestinal: Soft, Non Tender and Non Distended
Genito-Urinary: Negative CVA Tenderness
Extremities: Negative Edema
Neurological: AO x 3
Objective Data
Lab Data
Lab Results
10/28/24 06:55
10/28/24 06:55
Estimated Creat Clear 78 ml/min 10/28/24 06:55
Most recent labs reviewed.
Micro Results:
10/26/24 19:03 Urine Culture - Final
Urine NO GROWTH
[2024-10-28 16:00] VITALS: BP 103/72
[2024-10-28 17:34] LABS: Glucose - Point of Care 137 mg/dl (70-99)
[2024-10-28] MEDS: NOVOLOG FLEXPEN-MODERATE RESISTANCE SC (17:34)
[2024-10-28] MEDS: LANTUS 0.2 UNITS SC (21:51)
[2024-10-28] MEDS: MELATONIN 10 MG PO (21:52)
[2024-10-28 21:55] LABS: Glucose - Point of Care 138 mg/dl (70-99)
[2024-10-28 23:10] VITALS: BP 137/73
[2024-10-29] VITALS (9 sets, daily range): BP systolic 97–129; BP diastolic 58–71; BMI 37.5
[2024-10-29 05:04] LABS: Hemoglobin 12.1 g/dL (13.0-18.0); Mean Corp Hgb Conc. 33.6 g/dL (33.0-37.0); Mean Corpuscular Hgb 30.4 pg (27.0-31.0); Mean Corpuscular Volume 90.5 fL (80.0-94.0); Mean Platelet Volume 12.6 fL (7.4-10.4); Platelet Count 130 10^3/uL (130-400); Red Blood Cell Count 3.98 10^6/uL (4.70-6.10); Red Cell Dist. Width 13.8 % (11.5-14.5); White Blood Cell Count 7.5 10^3/uL (4.8-10.8)
[2024-10-29 05:31] LABS: Blood Urea Nitrogen 26 mg/dl (9-20); Calcium 9.1 mg/dl (8.4-10.2); Carbon Dioxide 24 mmol/L (22-30); Chloride 109 mmol/L (98-107); Estimated Creatinine Clearance 72 ml/min; Glucose 128 mg/dl (70-99); Potassium 4.5 mmol/L (3.5-5.1); Sodium 140 mmol/L (135-145); eGFR > 60.00
[2024-10-29 05:36] LABS: Glucose - Point of Care 137 mg/dl (70-99)
[2024-10-29] MEDS: NOVOLOG FLEXPEN SC (06:48)
[2024-10-29] MEDS: NOVOLOG FLEXPEN-MODERATE RESISTANCE SC ×2 (06:49→12:07)
[2024-10-29] MEDS: INVANZ 60 MG IV (08:18)
[2024-10-29] MEDS: BYSTOLIC 10 MG PO (08:18)
[2024-10-29] MEDS: ZYLOPRIM 300 MG PO (08:19)
[2024-10-29] MEDS: CRESTOR 20 MG PO (08:19)
[2024-10-29] MEDS: FLOMAX 0.4 MG PO (08:19)
[2024-10-29] MEDS: NORVASC 10 MG PO (08:19)
[2024-10-29] MEDS: PROSCAR 5 MG PO (08:19)
--- NOTE | 2024-10-29 10:36 | PTCARENOTE ---
Patient to OR for cystoscopy. Patient transported in bed with SCDs in place, CHG wipes and fresh gown provided prior to transport. Chart transported with patient.
[2024-10-29 10:54] LABS: Glucose - Point of Care 132 mg/dl (70-99)
--- NOTE | 2024-10-29 11:09 | W.PN.ID1 ---
Date of Service
Date of Service: October 29, 2024
Today's Communication
Continue Ertapenem through urological procedure.
Assessment / Plan
# Suspect noninfectious interstitial cystitis
- Multiple outpatient and inpatient urine cultures were negative, both before and while on antibiotic
- Urinary symptoms did not resolve while on antibiotics
- Current Urine culture NO GROWTH.
Pt still symptomatic while on Ertapenem (d3)
- For cystoscopy today, per Urology
- Can continue ertapenem (d3) through procedure.
# Conditions [employer]
hypertension
hyperlipidemia
gout
BPH
hx bladder stones x2
hx staghorn caliculi (uric acid - dissolved with med >20 yrs ago)
cystoscopy (stone retrieval and U stent)
laparoscopic sigmoidectomy/takedown colovesical fistula (11/16/2022)
Right shoulder repair
Chief Complaint
-: Other (Dysuria)
Subjective / Review of Systems
Continues to have dysuria, frequency.
Vital Signs / Physical Exam
Vital Signs
Vital Signs
Temp Pulse Resp BP Pulse Ox
98.5 F 74 16 121/62 95
10/29/24 07:10 10/29/24 08:19 10/29/24 07:10 10/29/24 08:19 10/29/24 09:53
Physical Exam
Constitutional: No Acute Distress
Cardiovascular: Regular Rate and S1/S2
Pulmonary: Clear
Gastrointestinal: Soft, Non Tender and Non Distended
Genito-Urinary: Negative CVA Tenderness
Extremities: Negative Edema
Neurological: AO x 3
Objective Data
Lab Data
Lab Results
10/29/24 04:41
10/29/24 04:41
Estimated Creat Clear 72 ml/min 10/29/24 04:41
Most recent labs reviewed.
Micro Results:
10/26/24 19:03 Urine Culture - Final
Urine NO GROWTH
--- NOTE | 2024-10-29 11:35 | W.PN.HOSP.TC ---
Today's Communication/Plan
-
abx per ID
follow urine cs report
cystoscopy today
Assessment / Plan
Assessment / Plan
Dysuria/Urgency
Possible Recurrent UTI (failed outpatient antibiotics) vs Interstitial Cystitis vs prostatitis
-UA showing mod bacteriuria and significant pyuria
-ID and urology evaluated
-Continue ertapenem for now
-Urine cs remains negative,
-Urology planning to do elective cystoscopy today
-Patient willing to try as needed Pyridium for symptomatic care
Essential Hypertension
-Continue amlodipine and nebivolol
Hyperlipidemia
-Continue Crestor
Diabetes Mellitus, Type II
-HgbA1c 10.8 in Aug 2024
-Continue Lantus and NovoLog
-Monitor sugars and continue coverage insulin
CKD Stage II
-Creatinine at baseline
Gout
-Continue allopurinol
BPH
-Continue finasteride
-Add Flomax in hope this may help some of his urinary symptoms
DVT proph: SC Heparin
Code Status: Full Code
Anticipated Discharge: 24 - 48 hours
Subjective/Interval History
-
Date of Service: October 29, 2024
no complains overnight
Objective Data
-
Labs:
Laboratory Results
10/29/24
04:41
WBC 7.5
Hgb 12.1 L
Hct 36.0 L
Plt Count 130
Sodium 140
Potassium 4.5
Chloride 109 H
Carbon Dioxide 24
BUN 26 H
Creatinine 1.2
Glucose 128 H
Calcium 9.1
Vital Signs:
Vital Signs
Temp Pulse Resp BP Pulse Ox
98.5 F 74 16 121/62 95
10/29/24 07:10 10/29/24 08:19 10/29/24 07:10 10/29/24 08:19 10/29/24 09:53
I&O
10/28/24 10/29/24 10/30/24
06:59 06:59 06:59
Intake Total 240 / 240 1440 / 1440
Balance 240 / 240 1440 / 1440
Review of Systems
-
Respiratory: Reports No Symptoms
Cardiac: Reports No Symptoms
Abdomen/GI: Reports No Symptoms
Physical Exam
-
General: No Apparent Distress and Comfortable
HEENT: Negative Oxygen
Respiratory: Clear to Auscultation
Cardiac: Regular Rhythm and S1/S2; Negative Murmur or Rub
GI: Soft, Nontender and Nondistended
Musculoskeletal: No Edema
Neuro: Awake, Alert, Oriented, No Motor Deficits and Nonfocal/Grossly Intact
Psych: Calm
[2024-10-29 11:51] LABS: Glucose - Point of Care 122 mg/dl (70-99)
--- NOTE | 2024-10-29 11:59 | CM ---
Chart reviewed
For Cystoscopy today
Plan - anticipate home no needs
--- NOTE | 2024-10-29 13:00 | PTCARENOTE ---
Received patient back from PACU s/p cystoscopy. VSS, SCDs in place, diet order re-entered per urology. Tran in place draining pink/blood tinged urine, urology aware. Patient c/o mild burning/irritation around tran insertion site but states no
other complaints at this time/denies need for pain medication currently.
--- NOTE | 2024-10-29 13:01 | W.IMMPOSTOP ---
Surgical Immed Post Op Note
-
Primary Surgeon: Kallie
Assisting Surgeon: None
Pre-op Diagnosis: Frequency and urgency
Post-op Diagnosis: cystitis
Procedure Performed: cystoscopy with hydrodistension of bladder
Anesthesia Type: GET
Specimen / Cultures: None
Estimated Blood Loss: 2 ml
Complications: None
Operative Findings: generalized urothelial inflammation after initial distension. Bladder capacity diminished: 180 ml. No ulcers evident after second distension
[2024-10-29] MEDS: NOVOLOG FLEXPEN 5 UNITS SC ×2 (13:39→17:24)
[2024-10-29] MEDS: TYLENOL 650 MG PO (16:21)
[2024-10-29 16:25] LABS: Glucose - Point of Care 249 mg/dl (70-99)
[2024-10-29] MEDS: NOVOLOG FLEXPEN-MODERATE RESISTANCE 3 UNITS SC (17:24)
[2024-10-29 21:02] LABS: Glucose - Point of Care 270 mg/dl (70-99)
[2024-10-29] MEDS: MELATONIN 10 MG PO (22:30)
[2024-10-29] MEDS: LANTUS 0.2 UNITS SC (22:31)
[2024-10-30 05:03] LABS: Hematocrit 35.2 % (39.0-52.0); Hemoglobin 12.2 g/dL (13.0-18.0); Mean Corp Hgb Conc. 34.7 g/dL (33.0-37.0); Mean Corpuscular Volume 89.6 fL (80.0-94.0); Mean Platelet Volume 12.4 fL (7.4-10.4); Platelet Count 131 10^3/uL (130-400); Red Blood Cell Count 3.93 10^6/uL (4.70-6.10); Red Cell Dist. Width 13.5 % (11.5-14.5); White Blood Cell Count 7.7 10^3/uL (4.8-10.8)
[2024-10-30 05:19] VITALS: BMI 37.8
[2024-10-30 05:25] LABS: Blood Urea Nitrogen 31 mg/dl (9-20); Calcium 9.1 mg/dl (8.4-10.2); Carbon Dioxide 24 mmol/L (22-30); Chloride 108 mmol/L (98-107); Estimated Creatinine Clearance 72 ml/min; Glucose 169 mg/dl (70-99); Potassium 5.3 mmol/L (3.5-5.1); Sodium 138 mmol/L (135-145); eGFR > 60.00
[2024-10-30 07:30] VITALS: BP 122/64
[2024-10-30 08:36] LABS: Glucose - Point of Care 155 mg/dl (70-99)
[2024-10-30] MEDS: FLOMAX 0.4 MG PO (09:05)
[2024-10-30] MEDS: PROSCAR 5 MG PO (09:05)
[2024-10-30] MEDS: CRESTOR 20 MG PO (09:05)
[2024-10-30] MEDS: BYSTOLIC 10 MG PO (09:05)
[2024-10-30] MEDS: NORVASC 10 MG PO (09:05)
[2024-10-30] MEDS: INVANZ 60 MG IV (09:05)
[2024-10-30] MEDS: ZYLOPRIM 300 MG PO (09:05)
[2024-10-30] MEDS: NOVOLOG FLEXPEN 5 UNITS SC (09:23)
[2024-10-30] MEDS: NOVOLOG FLEXPEN-MODERATE RESISTANCE 1 UNITS SC (09:24)
--- NOTE | 2024-10-30 10:05 | PTCARENOTE ---
tran discontinued this morning per order. urinal given at bedside.
--- NOTE | 2024-10-30 10:18 | CM ---
Patient seen at bedside, eating with no concerns. Patient plan is for discharge home with no needs.
Plan; home with no needs anticipated.
--- NOTE | 2024-10-30 10:21 | W.PN.HOSP.TC ---
Today's Communication/Plan
-
Await ID/urology clearance
Discharge later in the day today
Assessment / Plan
Assessment / Plan
Dysuria/Urgency - Improved
Possible Recurrent UTI (failed outpatient antibiotics) vs Interstitial Cystitis vs prostatitis
- UA showing mod bacteriuria and significant pyuria
- ID and urology evaluated
- Urine cs remains negative,
- Status post cystoscopy on 10/29 showing diffuse cystitis. No biopsies taken.
- Patient have not asked for as needed Pyridium as improved symptom
- Await ID and urology clearance for possible discharge later today
Essential Hypertension
-Continue amlodipine and nebivolol
Hyperlipidemia
-Continue Crestor
Diabetes Mellitus, Type II
-HgbA1c 10.8 in Aug 2024
-Continue Lantus and NovoLog
-Monitor sugars and continue coverage insulin
CKD Stage II
-Creatinine at baseline
Gout
-Continue allopurinol
BPH
-Continue finasteride
-Add Flomax in hope this may help some of his urinary symptoms
DVT proph: SC Heparin
Code Status: Full Code
Anticipated Discharge: Today
Subjective/Interval History
-
Date of Service: October 30, 2024
Resting comfortably in bed
Denies any dysuria/pain
no other reported problems overnight
Objective Data
-
Labs:
Laboratory Results
10/30/24
04:45
WBC 7.7
Hgb 12.2 L
Hct 35.2 L
Plt Count 131
Sodium 138
Potassium 5.3 H
Chloride 108 H
Carbon Dioxide 24
BUN 31 H
Creatinine 1.2
Glucose 169 H
Calcium 9.1
Vital Signs:
Vital Signs
Temp Pulse Resp BP Pulse Ox
97.8 F 67 16 122/64 96
10/30/24 07:30 10/30/24 07:30 10/30/24 07:30 10/30/24 09:05 10/30/24 08:07
I&O
10/29/24 10/30/24 10/31/24
06:59 06:59 06:59
Intake Total 1440 / 1440 1600 / 1600
Output Total 1750 / 1750
Balance 1440 / 1440 -150 / -150
Review of Systems
-
Respiratory: Reports No Symptoms
Cardiac: Reports No Symptoms
Abdomen/GI: Reports No Symptoms
Physical Exam
-
General: No Apparent Distress and Comfortable
HEENT: Negative Oxygen
Respiratory: Clear to Auscultation
Musculoskeletal: No Edema
Neuro: Awake, Alert, Oriented, No Motor Deficits and Nonfocal/Grossly Intact
Psych: Calm
--- NOTE | 2024-10-30 10:31 | W.PN.ID1 ---
Date of Service
Date of Service: October 30, 2024
Today's Communication
DC abx. OK to dc home.
Assessment / Plan
# Suspect noninfectious interstitial cystitis (bladder pain syndrome)
- Multiple outpatient and inpatient urine cultures were negative, both before and while on antibiotic
- Urinary symptoms did not resolve while on antibiotics
- Current Urine culture NO GROWTH.
Pt still symptomatic while on Ertapenem (d4)
- 10/29 cystoscopy inflamed bladder wall with low capacity
- DC ertapenem.
- Follow-up with Urology. Consider bladder instillation therapy.
# Conditions [employer]
hypertension
hyperlipidemia
gout
BPH
hx bladder stones x2
hx staghorn caliculi (uric acid - dissolved with med >20 yrs ago)
cystoscopy (stone retrieval and U stent)
laparoscopic sigmoidectomy/takedown colovesical fistula (11/16/2022)
Right shoulder repair
Chief Complaint
-: Other (Dysuria)
Subjective / Review of Systems
Urine flow better with dysuria.
Vital Signs / Physical Exam
Vital Signs
Vital Signs
Temp Pulse Resp BP Pulse Ox
97.8 F 67 16 122/64 96
10/30/24 07:30 10/30/24 07:30 10/30/24 07:30 10/30/24 09:05 10/30/24 08:07
Physical Exam
Constitutional: No Acute Distress and Comfortable
Cardiovascular: Regular Rate and S1/S2
Pulmonary: Clear
Gastrointestinal: Soft, Non Tender and Non Distended
Genito-Urinary: Negative CVA Tenderness
Extremities: Negative Edema
Neurological: AO x 3
Objective Data
Lab Data
Lab Results
10/30/24 04:45
10/30/24 04:45
Estimated Creat Clear 72 ml/min 10/30/24 04:45
Most recent labs reviewed.
Micro Results:
10/26/24 19:03 Urine Culture - Final
Urine NO GROWTH
Care Review
Plan reviewed with: Physician (Dr. Juan Miguel Judge)
[2024-10-30 11:30] LABS: Glucose - Point of Care 168 mg/dl (70-99)
[2024-10-30 12:00] VITALS: BP 137/65
[2024-10-30] MEDS: NOVOLOG FLEXPEN SC (13:06)
--- NOTE | 2024-10-30 14:07 | W.DCSUMMARY ---
Discharge Summary
Discharge Data
Date of Admission: 10/26/24
Date of Discharge: 10/30/24
-
Pending Results: No
Hospital Course
Discharging Physician : Dr Ismael Judge
Disposition : To home
Primary care physician : Unknown
Principal Discharge diagnosis :
Dysuria
Possible recurrent urinary tract infection
Chronic Discharge diagnosis :
Essential hypertension
Hyperlipidemia
Type 2 diabetes mellitus
Chronic kidney disease stage II
Gout
Benign prostatic hyperplasia
Hospital Course :
Patient is a 69-year-old male with above-mentioned past medical history came to ER with having ongoing dysuria/urinary urgency. Patient has history of recurrent urinary tract infection and was concerned about having repeat episode. Patient history
of ESBL organism in urine in the past and was started on ertapenem in ER. ID was involved in care. There was question of patient possibly having a secondary explanation of dysuria/urethritis symptoms and urology was involved for further
evaluation. Patient underwent a cystoscopic evaluation and was found to having diffuse cystitis, no biopsies were taken. Patient had improvement in symptoms with empiric antibiotic. Patient may have component of interstitial cystitis although
unable to be confirmed at this point. Patient was provided Pyridium as needed for symptomatic care. Patient was discharged to home at this point off of antibiotics. Patient to follow-up with urology in office.
Important imaging findings :
None
Procedure findings :
None
Discharge Plan
-
Patient Disposition: Home (Routine Discharge)
Discharge Diagnosis/Procedures: Dysuria, cystitis
Condition: Fair
Diet: Regular
Activity: As tolerated
Driving Restrictions: As prior to admission
Bathing Restrictions: OK to Shower
Referrals:
Austin Arreguin MD [Active] - in one to two weeks
UNKNOWN - PT DOES,NOT KNOW [Family Provider] -
Prescriptions:
New
phenazopyridine [Pyridium] 200 mg tablet
200 mg PO TID PRN (Reason: dysuria/urethreal pain) Qty: 20 0RF
Continued
allopurinol 300 MG tablet
300 mg PO DAILY
amlodipine 10 MG tablet
10 mg PO DAILY
finasteride 5 mg Tablet
5 mg PO DAILY Qty: 30 0RF
nebivolol 10 mg Tablet
10 mg PO DAILY
rosuvastatin 20 mg Tablet
20 mg PO DAILY
prednisone 5 mg Tablet
5 mg PO DAILYPRN PRN (Reason: gout attack)
acetaminophen [Tylenol Extra Strength] 500 mg Tablet
1,000 mg PO BID
vitamin B complex Tablet
1 tab PO DAILY
melatonin 5 mg Tablet
10 mg PO HS
magnesium oxide 400 mg magnesium Tablet
400 mg PO DAILY
Hair, Skin and Nails (biotin) 10,000 mcg Tablet,Chewable
10,000 mcg PO DAILY
insulin aspart U-100 [Novolog FlexPen U-100 Insulin] 100 unit/mL (3 mL) insulin pen
5 - 6 unit SC AC
insulin glargine [Lantus Solostar U-100 Insulin] 100 unit/mL (3 mL) insulin pen
20 - 24 unit SC HS
Discontinued
amoxicillin-pot clavulanate [Augmentin] 875-125 mg Tablet
1 tab PO BID
Patient Comments:
10/26/24: Patient has 17 tablets left
Discharge Orders:
Discharge Patient (As Directed); Ordered 10/30/24
Ordered By: Ismael Judge
Discharge Date and Time
Discharge Date/Time: 10/30/24 13:40
Print Language: BELARUSIAN
--- NOTE | 2024-10-30 14:23 | CM ---
Patient seen at bedside, IMM reviewed and provided to patient. Patient states he has no concerns for discharge at this time. CM will continue to follow for discharge planning needs.
Plan; home with no needs.
== END 2024-10-30 13:40 | disposition home or self-care (01) | DRG 728 ==
LOC: 2 NORTH 22:34
PROVIDERS: Emergency Medicine; Physician Assistant Medical; Specialist; ADMITTING PHYSICIAN Internal Medicine; ATTENDING PHYSICIAN Hospitalist; CONSULT PHYSICIAN Urology; EMERGENCY PHYSICIAN Emergency Medicine; OTHER PHYSICIAN Internal Medicine Infectious Disease
PROC: 0TJB8ZZ Inspection of Bladder, Via Natural or Artificial Opening Endoscopic (ICD-10-PCS; 2024-10-29)
DX: N41.3 Prostatocystitis (principal); N39.0 Urinary tract infection, site not specified; Z87.440 Personal history of urinary (tract) infections; I12.9 Hypertensive chronic kidney disease with stage 1 through stage 4 chronic kidney disease, or unspecified chronic kidney disease; N18.2 Chronic kidney disease, stage 2 (mild); E78.00 Pure hypercholesterolemia, unspecified; M10.9 Gout, unspecified; N40.1 Benign prostatic hyperplasia with lower urinary tract symptoms; Z86.19 Personal history of other infectious and parasitic diseases; E11.22 Type 2 diabetes mellitus with diabetic chronic kidney disease; Z88.8 Allergy status to other drugs, medicaments and biological substances; Z79.4 Long term (current) use of insulin; Z87.442 Personal history of urinary calculi; G47.00 Insomnia, unspecified; Z79.899 Other long term (current) drug therapy; E83.118 Other hemochromatosis; I44.7 Left bundle-branch block, unspecified
CPT/HCPCS: 51798; 80048; 81003; 81015; 82962; 83735; 85025; 85027; 87086; 93005; 96365; 99285; J1335

== ENCOUNTER 2025-03-30 06:26 | Day surgery (SDC) | payer OTHER, SELFPAY ==
--- NOTE | 2025-03-22 13:37 | PTCARENOTE ---
Abnormal ECG done 10/26/24, reviewed by Dr Cai, no further interventions required.
--- NOTE | 2025-03-24 10:22 | PTCARENOTE ---
Patients 01/20 creat- 1.65; GFR 44- Aretha @ Dr. Arreguin office notified
[2025-03-30] VITALS (20 sets, daily range): BP systolic 85–134; BP diastolic 58–95; BMI 39.9
[2025-03-30] MEDS: NORMOSOL-R/PLASMALYTE-A 1000 IV (09:25)
[2025-03-30 09:26] LABS: Glucose - Point of Care 212 mg/dl (70-99)
[2025-03-30 09:46] LABS: Urine Character Cloudy (Clear)
[2025-03-30 10:29] LABS: Urine Squamous Cell 0-2 /LPF (Few); Urine White Cell >100 /HPF (0-5)
[2025-03-30] MEDS: TRANEXAMIC ACID 100 IV (10:42)
--- NOTE | 2025-03-30 11:57 | W.IMMPOSTOP ---
Surgical Immed Post Op Note
-
Primary Surgeon: Kallie
Assisting Surgeon: None
Pre-op Diagnosis: BPH, OAB
Post-op Diagnosis: Same
Procedure Performed: TURP/TUIP
Anesthesia Type: GET
Specimen / Cultures: preop UCx, prostate chips
Estimated Blood Loss: 15 ml
Complications: None
[2025-03-30 12:01] LABS: Glucose - Point of Care 213 mg/dl (70-99)
[2025-03-30] MEDS: VALIUM INJECTION 5 MG IV (12:15)
[2025-03-30] MEDS: DILAUDID 0.5 MG IV (12:32)
[2025-03-30] MEDS: DETROL LA 4 MG PO (13:01)
[2025-03-30 13:27] LABS: Blood Urea Nitrogen 34 mg/dl (9-20); Calcium 8.7 mg/dl (8.4-10.2); Carbon Dioxide 24 mmol/L (22-30); Chloride 106 mmol/L (98-107); Estimated Creatinine Clearance 59 ml/min; Glucose 236 mg/dl (70-99); Potassium 5.1 mmol/L (3.5-5.1); Sodium 137 mmol/L (135-145); eGFR 49.77
[2025-03-30] MEDS: NOVOLOG vial 1 UNITS SC (13:45)
[2025-03-30] MEDS: LR 1000 IV (14:00)
[2025-03-30] MEDS: FLOMAX 0.4 MG PO (15:03)
[2025-03-30 17:59] LABS: Glucose - Point of Care 388 mg/dl (70-99)
--- NOTE | 2025-03-30 18:00 | PTCARENOTE ---
Pt arrived to floor from PACU. VSS but pt blood sugar 388 insulin given as ordered see MAR. Pt also with bloody saturated max underneath him. Pt changed and fresh sheets placed. Pt with CBI up with bag #1 empty and bag #2 with approx 1250mL left.
Fresh bag placed and upon assessment CBI not running. This RN opened tubing wide open to run but CBI not running still. Irrigated with another RN clots passed through Ware. CBI unable to flow still. MD Arreguin notified and coming to bedside to
assist. irrigated further and advance catheter and CBI now currently able to flow. Pt offers no complaints at this time.
[2025-03-30] MEDS: NOVOLOG FLEXPEN 6 UNITS SC (18:34)
[2025-03-30] MEDS: COLACE 100 MG PO (18:34)
[2025-03-30] MEDS: NOVOLOG FLEXPEN-LOW RESISTANCE 5 UNITS SC (18:35)
[2025-03-30] MEDS: ANCEF 10 IV (18:36)
[2025-03-30 21:12] LABS: Glucose - Point of Care 385 mg/dl (70-99)
[2025-03-30] MEDS: LANTUS 0.1 UNITS SC (22:59)
[2025-03-30] MEDS: MORPHINE SULFATE 4 MG IV (23:15)
[2025-03-30] MEDS: MELATONIN 10 MG PO (23:16)
[2025-03-31] MEDS: VALIUM INJECTION 5 MG IV ×4 (00:48→23:47)
[2025-03-31] MEDS: ANCEF 10 IV ×3 (02:55→18:05)
[2025-03-31] MEDS: LR 1000 IV ×2 (03:51→18:03)
[2025-03-31] MEDS: MORPHINE SULFATE 4 MG IV ×3 (04:18→20:10)
[2025-03-31 05:10] LABS: Hematocrit 30.8 % (39.0-52.0); Hemoglobin 10.1 g/dL (13.0-18.0); Mean Corp Hgb Conc. 32.8 g/dL (33.0-37.0); Mean Corpuscular Volume 92.5 fL (80.0-94.0); Platelet Count 115 10^3/uL (130-400); Red Cell Dist. Width 13.7 % (11.5-14.5)
[2025-03-31 05:31] LABS: Blood Urea Nitrogen 31 mg/dl (9-20); Calcium 8.8 mg/dl (8.4-10.2); Carbon Dioxide 25 mmol/L (22-30); Chloride 106 mmol/L (98-107); Estimated Creatinine Clearance 59 ml/min; Glucose 275 mg/dl (70-99); Potassium 4.9 mmol/L (3.5-5.1); Sodium 137 mmol/L (135-145); eGFR 49.77
[2025-03-31 07:56] VITALS: BP 116/61
[2025-03-31 08:16] LABS: Glycohemoglobin (HgbA1c) 8.0 % (4.0-5.6)
[2025-03-31 08:19] LABS: Glucose - Point of Care 251 mg/dl (70-99)
[2025-03-31] MEDS: BYSTOLIC 10 MG PO (09:17)
[2025-03-31] MEDS: CRESTOR 20 MG PO (09:17)
[2025-03-31] MEDS: FLOMAX 0.4 MG PO (09:17)
[2025-03-31] MEDS: NORVASC 10 MG PO (09:18)
[2025-03-31] MEDS: ZYLOPRIM 300 MG PO (09:18)
[2025-03-31] MEDS: NOVOLOG FLEXPEN 6 UNITS SC ×3 (09:18→18:04)
[2025-03-31] MEDS: PROSCAR 5 MG PO (09:18)
[2025-03-31] MEDS: COLACE 100 MG PO ×3 (09:18→15:29)
[2025-03-31] MEDS: NOVOLOG FLEXPEN-LOW RESISTANCE 3 UNITS SC ×2 (09:19→13:09)
--- NOTE | 2025-03-31 09:26 | W.PN.SURGUPD ---
Surgical Update
Surgical Update
Stable 1 day s/p TURP/YUIP
Labs good
Comfortable
Mara diet
Afeb/VSS
---
Abd soft/no CVAT
Ware draining clear urine on slow drip CBI
---
Stop CBI at noon today
Anticipate catheter removal tomorrow AM
--- NOTE | 2025-03-31 10:10 | CM ---
Cm reviewed medical records. Patient lives independently with . Patient does not have a history of VN, SNF or DME. Patient is active with his PCP. Patient does have medication coverage. If patient leaves with tran, he is declining home care
and feel comfortable with tran care.
PLAN: home no needs.
[2025-03-31] MEDS: PERCOCET 5/325 1 TABLET PO (11:42)
[2025-03-31 12:54] LABS: Glucose - Point of Care 250 mg/dl (70-99)
[2025-03-31 15:52] VITALS: BP 129/60
[2025-03-31 17:10] LABS: Glucose - Point of Care 307 mg/dl (70-99)
[2025-03-31] MEDS: NOVOLOG FLEXPEN-LOW RESISTANCE 4 UNITS SC (18:04)
[2025-03-31] MEDS: DETROL LA 4 MG PO (18:16)
--- NOTE | 2025-03-31 19:13 | PTCARENOTE ---
Patient was c/o increased bladder pain and spasms; CBI stopped at 1230; Dr. Arreguin made aware; IV morphine and Valium administered at 1530; patient fell asleep.
[2025-03-31] MEDS: TYLENOL 650 MG PO (20:29)
[2025-03-31 20:31] VITALS: BP 140/68
[2025-03-31 21:07] LABS: Glucose - Point of Care 267 mg/dl (70-99)
[2025-03-31] MEDS: LANTUS 0.1 UNITS SC (22:48)
[2025-03-31] MEDS: MELATONIN 10 MG PO (22:49)
[2025-03-31 23:20] VITALS: BP 115/57
[2025-04-01 00:11] LABS: Urine Character Cloudy (Clear)
[2025-04-01 00:19] LABS: Urine Squamous Cell None seen /LPF (Few)
[2025-04-01 00:20] LABS: Urine White Cell >100 /HPF (0-5)
[2025-04-01] MEDS: ANCEF 10 IV ×3 (02:07→18:11)
[2025-04-01] MEDS: MORPHINE SULFATE 4 MG IV ×3 (03:00→09:24)
[2025-04-01] MEDS: ZOFRAN 4 MG IV (08:04)
[2025-04-01] MEDS: VALIUM INJECTION 5 MG IV (08:04)
--- NOTE | 2025-04-01 08:35 | W.PN.SURGUPD ---
Surgical Update
Surgical Update
Stable 2 days s/p TURP/TUIP
Fever overnight, decreased this AM: suspect atelectesis
Preop urine culture: mixed ronen
Overnight blood cultures pending
HD stable
c/o penile/meatal pain
---
Abd protuberant/soft/non-tender
Ware draining clear urine
---
Incentive spirometry
Remove Ware
Home later today if HD stable and only low grade fever
--- NOTE | 2025-04-01 08:41 | W.DS.TRANS ---
DC Summary - Belt Tender
-
Discharge Instructions:
Sleep Apnea Risk Intermediate
Instructions:
Stand-Alone Forms:
Changes to Home Medications: No
Discharge Medications:
DC Medications w/original date entered in [facility]
allopurinol 300 mg tablet 300 mg PO DAILY Gout 04/12/20
amlodipine 10 mg tablet 10 mg PO DAILY Blood pressure 04/13/20
finasteride 5 mg tablet 5 mg PO DAILY #30 tabs 08/10/22
rosuvastatin 20 mg tablet 20 mg PO DAILY 09/06/24
acetaminophen 500 mg tablet (Tylenol Extra Strength) 1,000 mg PO BID PRN pain 10/26/24
biotin 10,000 mcg chewable tablet (Hair, Skin and Nails (biotin)) 10,000 mcg PO DAILY 10/26/24
insulin aspart U-100 100 unit/mL (3 mL) subcutaneous pen (Novolog FlexPen U-100 Insulin aspart) 5 - 6 unit SC AC 10/26/24
insulin glargine 100 unit/mL (3 mL) subcutaneous pen (Lantus Solostar U-100 Insulin) 10 unit SC HS 10/26/24
melatonin 5 mg tablet 10 mg PO HS 10/26/24
prednisone 5 mg tablet 5 mg PO DAILYPRN PRN gout attack 10/26/24
vitamin B complex 1 tab PO DAILY 10/26/24
nebivolol 10 mg tablet 10 mg PO DAILY 03/30/25
tamsulosin 0.4 mg capsule 0.4 mg PO DAILY 03/30/25
Home Medication Changes
Pending Results: No
[2025-04-01 09:14] LABS: Glucose - Point of Care 141 mg/dl (70-99)
[2025-04-01 09:15] VITALS: BP 142/70
[2025-04-01] MEDS: ZYLOPRIM 300 MG PO (09:15)
[2025-04-01] MEDS: BYSTOLIC 10 MG PO (09:16)
[2025-04-01] MEDS: CRESTOR 20 MG PO (09:16)
[2025-04-01] MEDS: COLACE 100 MG PO ×3 (09:16→18:02)
[2025-04-01] MEDS: FLOMAX 0.4 MG PO (09:16)
[2025-04-01] MEDS: PROSCAR 5 MG PO (09:23)
[2025-04-01] MEDS: NORVASC 10 MG PO (09:24)
[2025-04-01] MEDS: NOVOLOG FLEXPEN-LOW RESISTANCE SC ×2 (10:18→13:27)
[2025-04-01] MEDS: NOVOLOG FLEXPEN 6 UNITS SC ×3 (10:19→18:10)
[2025-04-01 12:08] VITALS: BP 139/70
[2025-04-01] MEDS: TYLENOL 650 MG PO ×2 (12:22→18:23)
[2025-04-01 13:22] LABS: Glucose - Point of Care 136 mg/dl (70-99)
[2025-04-01 15:00] LABS: Hematocrit 31.6 % (39.0-52.0); Hemoglobin 10.2 g/dL (13.0-18.0); Mean Corp Hgb Conc. 32.3 g/dL (33.0-37.0); Mean Corpuscular Volume 93.5 fL (80.0-94.0); Platelet Count 105 10^3/uL (130-400); Red Cell Dist. Width 13.8 % (11.5-14.5)
[2025-04-01 15:59] VITALS: BP 106/57
--- NOTE | 2025-04-01 17:25 | W.PN.SURGUPD ---
Surgical Update
Surgical Update
Discharge postponed due to fever
Suspect atelectesis
Repeat WBC this afternoon stable at 7K
No cough or SOB
Voiding w/o dysuria or hematuria
Repeat urine culture and blood cultures pending
---
OOB and ambulating
Continue incentive spirometry
Repeat CBC in AM
[2025-04-01] MEDS: NOVOLOG FLEXPEN-LOW RESISTANCE 1 UNITS SC (18:11)
[2025-04-01 18:20] LABS: Glucose - Point of Care 167 mg/dl (70-99)
[2025-04-01 21:15] LABS: Glucose - Point of Care 178 mg/dl (70-99)
[2025-04-01] MEDS: LANTUS 0.1 UNITS SC (22:52)
[2025-04-01] MEDS: MELATONIN 10 MG PO (22:52)
[2025-04-01 23:23] VITALS: BP 110/55
[2025-04-02] MEDS: ANCEF 10 IV ×2 (01:42→09:29)
[2025-04-02] MEDS: CATHFLO/ACTIVASE 2 MG INTRACATH (06:00)
--- NOTE | 2025-04-02 06:13 | VATNOTE ---
NO BR FROM R SUBQ PRT DESPITE MULTIPLE ATTEMPTS AND POSITION CHANGES ETC. CATHFLO PROTOCOL INITITATED DOCUMENTED. PCN AWARE OF INTERVENTION AND PLAN OF CARE. VAT TO FOLLOW.
--- NOTE | 2025-04-02 07:30 | VATNOTE ---
Cathflo was successful. Positive blood return from SQ port. AM labs drawn. Port flushed with 10ml NSS IV and Heparin 500units IV per protocol.
[2025-04-02 08:05] LABS: Hematocrit 30.0 % (39.0-52.0); Hemoglobin 9.6 g/dL (13.0-18.0); Mean Corp Hgb Conc. 32.0 g/dL (33.0-37.0); Mean Corpuscular Volume 93.5 fL (80.0-94.0); Platelet Count 98 10^3/uL (130-400); Red Cell Dist. Width 13.5 % (11.5-14.5)
[2025-04-02 08:40] VITALS: BP 128/57
[2025-04-02 08:46] LABS: Glucose - Point of Care 163 mg/dl (70-99)
[2025-04-02] MEDS: NOVOLOG FLEXPEN SC (09:21)
[2025-04-02] MEDS: NORVASC 10 MG PO (09:22)
[2025-04-02] MEDS: BYSTOLIC 10 MG PO (09:22)
[2025-04-02] MEDS: FLOMAX 0.4 MG PO (09:22)
[2025-04-02] MEDS: COLACE 100 MG PO (09:22)
[2025-04-02] MEDS: ZYLOPRIM 300 MG PO (09:22)
[2025-04-02] MEDS: PROSCAR 5 MG PO (09:22)
[2025-04-02] MEDS: CRESTOR 20 MG PO (09:22)
[2025-04-02] MEDS: NOVOLOG FLEXPEN-LOW RESISTANCE 1 UNITS SC (09:23)
[2025-04-02] MEDS: TYLENOL 650 MG PO (09:27)
[2025-04-02] MEDS: ZOFRAN 4 MG IV (09:27)
[2025-04-02] MEDS: DETROL LA 4 MG PO (09:35)
[2025-04-02] MEDS: NOVOLOG FLEXPEN 6 UNITS SC ×2 (11:24→12:48)
--- NOTE | 2025-04-02 11:31 | W.PN.UPDATE ---
Update Note
Progress Note Update
pt stable
low grade temps- but fever curve declining
wbc normal
c/o of expected urinary sx's
plan for discharge home
[2025-04-02 12:10] LABS: Glucose - Point of Care 263 mg/dl (70-99)
--- NOTE | 2025-04-02 12:16 | CM ---
Addendum entered by Jaky Ferrer 04/02/25 15:20:
referral in [facility] for [facility]-accepted
discharge today
PLAN: Home with [facility]
to transport
Original Note:
Met with patient
discharge today
IMM explained & signed. In chart
nsg requested PT eval-ordered
patient has been using walker in hospital, does not have at home, may need a script for walker
discussed VN -prefers [facility]-notified liaison
PLAN: home, Await PT eval, most likely with VN
--- NOTE | 2025-04-02 12:42 | VNURNOTE ---
Creche Attendant met with patient and to [facility], visits, schedule and homebound status. Patient is agreeable and understands that visits at home will be 2-3 x per week to assess and teach medical management.
[facility] for [facility] of care in 1-2 days after discharge from .
VN referral completed in [facility].
[2025-04-02] MEDS: COLACE PO (12:47)
[2025-04-02] MEDS: DIFLUCAN 200 MG 100 IV (12:49)
[2025-04-02] MEDS: NOVOLOG FLEXPEN-LOW RESISTANCE 3 UNITS SC (12:49)
[2025-04-02 13:20] VITALS: BP 119/63; BP 95/56; PULSE 69; O2SAT 92
[2025-04-02 14:42] VITALS: BP 103/50
== END 2025-04-02 15:31 | disposition home or self-care (01) ==
LOC: SDS 06:26
PROVIDERS: Nurse Practitioner Family; ATTENDING PHYSICIAN Specialist
DX: N40.1 Benign prostatic hyperplasia with lower urinary tract symptoms (principal); N32.0 Bladder-neck obstruction; N32.81 Overactive bladder; N41.9 Inflammatory disease of prostate, unspecified
CPT/HCPCS: 52601; 80048; 81003; 81015; 82962; 83036; 85027; 87040; 87086; 88305; 97162; J2997